=== PATIENT | female | born 1965 | race Caucasian/White ===

== ENCOUNTER 2020-08-24 10:36 | Outpatient (REF) | payer MEDICAID, SELFPAY | END 2020-08-24 10:37 | disposition home or self-care (01) | LOC: HO.LAB 10:36 | PROVIDERS: PCP Nurse Practitioner Family; Visit Provider Internal Medicine | DX: Z20.828 Contact with and (suspected) exposure to other viral communicable diseases (principal) | CPT/HCPCS: C9803; U0003 ==

== ENCOUNTER → 2020-08-29 14:07 | Outpatient (BNVA) | payer MEDICAID, SELFPAY | PROVIDERS: Visit Provider Internal Medicine | DX: R07.2 Precordial pain (principal); E11.8 Type 2 diabetes mellitus with unspecified complications; E78.5 Hyperlipidemia, unspecified; U07.1 COVID-19 | CPT/HCPCS: 93005; 99202 ==

== ENCOUNTER → 2020-09-22 08:30 | Outpatient (REF) | payer MEDICAID, SELFPAY ==
--- NOTE | 2020-09-22 | NM_ITS ---
EXERCISE MYOCARDIAL PERFUSION STUDY INDICATION: Shortness of breath, diabetes, hyperlipidemia, assess for coronary disease and ischemia TECHNIQUE: The patient was brought in for an exercise perfusion study on 09/22/2020. Patient performed exercise as per Pastor protocol and was injected 25 mCi of sestamibi once target heart rate was achieved. Images were obtained using the SPECT gamma camera interlaced with the gating device. Images were obtained in supine position. Resting perfusion study was performed on 09/25/2020. Patient was administered 25 mCi of sestamibi intravenously at rest. Images were then obtained in supine position. Total DLP 91mGy-cm. Images were processed with the software and compared side to side in short axis, horizontal long axis and vertical long axis views. FINDINGS: Raw images were reviewed. The stress perfusion study showed mildly diminished tracer uptake in the distal part of the inferolateral wall. With CT attenuation correction this improves significantly, suggestive of soft tissue attenuation. The gated study shows normal LV systolic function with calculated LVEF of 56%. LV cavity is normal in size. The gated study shows normal wall thickening and contraction of segments. Resting study shows mildly diminished tracer uptake in the mid anterior wall that is probably artifactual as this area improves normally perfused in the stress acquisition. Gating at rest reveals normal wall motion with ejection fraction at 70%. The findings are consistent with no definite reversible or fixed perfusion defects. NM/NM mateo perf SPECT rest & str IMPRESSION: 1. Myocardial perfusion imaging study shows likely normal myocardial perfusion. No definitive evidence of any ischemia or infarction. 2. Gated LVEF is normal. 3. Transient ischemic dilatation not present. EKG component of the test reported separately.
--- NOTE | 2020-09-22 08:37 | CA_ITS ---
Transthoracic Echocardiogram Patient (Last, First, Middle): Tisha Brown, Gender: Female Date of : 1965 Age: 55 Procedure Date: 09/22/2020 Procedure Type: Transthoracic Echocardiogram Location: OP Height: 162.56 cm Weight: 72.58 kg BSA: 1.78 m2 Heart Rate: bpm BP: 132 / 80 mmHg Certified Medical Records Coder: Referring MD: Kye Miller MD Symptoms: R07.2 - Precordial pain Study Quality: Good ECG Rhythm: Sinus Conclusions: - Normal left ventricular size and systolic function. - Normal right ventricular cavity size and systolic function. - No significant valvular or pericardial pathology. Findings Left Ventricle Normal left ventricular size and systolic function. There is mildly increased left ventricular wall thickness. The visually estimated ejection fraction is between 55-60%. There is no evidence of regional wall motion abnormalities. Diastolic function is normal for age. Right Ventricle Normal right ventricular cavity size and systolic function. Atria Both atria are normal in size. Aortic Valve Normal aortic valve structure and function. There is no aortic valve stenosis. There is no aortic valve regurgitation. Mitral Valve Normal mitral valve structure and function. There is no mitral valve regurgitation. There is no mitral valve stenosis. Pulmonic Valve Normal pulmonic valve structure and function. There is trace pulmonic valve regurgitation. Tricuspid Valve Normal right atrial pressure. There is no evidence of pulmonary hypertension. Great Vessels All visible segments of the aorta are normal in size. The visualized portions of the pulmonary artery and branches are normal. Venous The inferior vena cava is normal in size and collapses greater than 50% with inspiration. Pericardium/Pleural There is no evidence of pericardial effusion. Prior Study Comparison No prior study available for comparison. Measurements 2D Linear Measurements IVSd: 1.04 0.6-0.9/0.6-1.0 cm LVIDd: 3.30 3.9-5.3/4.2-5.9 cm LVIDd Index: 1.85 2.4-3.2/2.2-3.1 cm/m2 LVIDs: 2.38 2.0-3.6 cm LVPWd: 1.07 0.7-1.1 cm Ao Root: 2.90 2.1-3.5 cm LA Diam: 2.90 2.7-3.8/3.0-4.0 cm LAIDs Index: 1.63 1.5-2.3 cm/m2 LV Mass: 127.30 67-162/88-224 g LV Mass Index: 71.52 43-95/49-115 g/m2 LVOT Diam: 2.20 3.0+(-)1.3 cm 2D Systolic Function EF 4C: 59.70 >55% EF 2C: 60.00 >55% EF BiP: 60.00 >55% Mitral Valve MV Pk E: 0.62 MV PK A: 0.86 MV Decel Time: 127.00 E/A: 0.70 E'Lateral: 10.50 E'Medial: 7.35 E/E' Med: 8.40 E/E' Lat: 5.90 PHT: 37.00 MVA PHT: 5.95 Decel Fountain: 4.90 Aortic Valve AoV Pk Srini: 1.02 AoV Mn Srini: 0.69 AoV VTI: 0.29 AoV Pk Grad: 4.00 Aov Mn Grad: 2.00 CHIRAG Cont.VTI: 2.94 LVOT LVOT Pk Srini: 0.92 LVOT Mn Srini: 0.57 LVOT VTI: 0.22 LVOT Pk Grad: 3.00 LVOT Mn Grad: 2.00 LVOT Diam: 2.20 LVOT Area: 3.80 Diastolic Function MV Pk E: 0.62 MV Pk A: 0.86 E/A: 0.70 E'Medial: 7.35 E/E' Med: 8.40 E' Laterial: 10.50 E/E' Lat: 5.90 Tricuspid Valve TR Pk Srini: 2.15 TR Pk Grad: 18.00 RA Press: 3.00 RVSP: 21.00 Great Vessels Aorta Ao Root-2D: 2.90 2.0-3.7 cm Ao Asc: 2.80 2.1-3.4 cm Pulmonary Valve PV Pk Srini: 0.87 Peak PV Grad: 3.00 Updated in Other Vendor System with Status of Final Byron Kaplan MD electronically signed on 09/24/2020 9:51:24 PM with status of Final
--- NOTE | 2020-09-22 08:37 | CA_ITS ---
Acquisition Time: 2020-09-22 09:52:47 Total Exercise Time: 00:06:22 Test Indications: Dyspnea Medications: ASA FLONASE LEVOTHYROXINE LORATIDINE METFORMIN Protocol: SARAI Max HR: 136 BPM 88% of Pred: 153 BPM Max BP: 132/088 mmHG Max Work Load: 6.4 METS Test changed to exercise MIBI as pt had coffe this morning. Pt walked for 6 min 22 sec. METS 6.40, TAPHR up to 88 %. Pt tolerated well, denies any anginal sx. EKG without arrhythmias, Mild [address] depressions seen inferiorly and laterally at peak exercise that resolve in recovery. Nuclear images to follow. Normotensive response to exercise. Test reviewed with Dr. Miller Referred By: Kye Miller Overread By: Alessandra Osborne
== END ==
LOC: HO.CARD 08:30
PROVIDERS: Visit Provider Internal Medicine
DX: R07.2 Precordial pain (principal)
CPT/HCPCS: 78452; 93017; 93306; A9500

== ENCOUNTER 2020-09-25 10:41 | Outpatient (REF) | payer MEDICAID, SELFPAY ==
[2020-09-25 14:29] LABS: Cholesterol 215 mg/dL; HDL Cholesterol 54 mg/dL; LDL Cholesterol Calculated 103 mg/dl; Triglycerides 291 mg/dL
[2020-09-26 07:57] LABS: LDL Cholesterol Direct 134 mg/dL (<100)
== END 2020-09-25 10:42 | disposition home or self-care (01) ==
LOC: HO.10HDL 10:41
PROVIDERS: Visit Provider Internal Medicine Endocrinology, Diabetes & Metabolism
DX: E78.5 Hyperlipidemia, unspecified (principal)
CPT/HCPCS: 36415; 80061; 83721

== ENCOUNTER 2020-09-25 11:06 | Outpatient (REF) | payer MEDICAID, SELFPAY ==
--- NOTE | 2020-09-25 11:15 | MM_ITS ---
EXAMINATION: MM SCREENING DIGITAL BREAST TOMOSYNTHESIS, BILATERAL CLINICAL INFORMATION: Screening. Asymptomatic. The lifetime risk of breast cancer based on the Tyrer-Cuzick Model is 7%. COMPARISON: Mammography: 09/22/2019, 09/17/2018, 09/12/2017 TECHNIQUE: Digital breast tomosynthesis is performed in both the craniocaudal and mediolateral oblique views along with computer-aided detection (CAD). Synthesized 2D images are generated from the tomosynthesis. FINDINGS: The breasts are heterogeneously dense, which may obscure small masses (ACR BI-RADS breast composition Category c). Right breast is similar to prior studies with no interval mass or architectural abnormality or developing density. Neither breast shows abnormal calcifications. The bilateral axilla and skin contours are unremarkable. There is nodular asymmetry medial left breast on CC view 4 cm from nipple without correlate on MLO projection. Patient will be recalled to further characterize. MM/MM tomosynthesis screening BI IMPRESSION: Left: Nodular asymmetric density medial breast on CC view. Right: No mammographic evidence of malignancy. ASSESSMENT: BI-RADS 0: Incomplete - Need Additional Imaging Evaluation RECOMMENDATION: 1. Additional views of the left breast (3-D spot CC, 3-D rolled CC x2). 2. Targeted ultrasound if warranted after review of the additional views. 3. Radiology department staff will contact the patient for additional imaging. This patient's information was entered into a reminder system with a target due date for their next mammogram.
== END 2020-09-25 11:07 | disposition home or self-care (01) ==
LOC: HO.MAMMO 11:06
PROVIDERS: Visit Provider Nurse Practitioner Family
DX: Z12.31 Encounter for screening mammogram for malignant neoplasm of breast (principal)
CPT/HCPCS: 77063; 77067

== ENCOUNTER → 2020-10-02 09:50 | Outpatient (BNVA) | payer MEDICAID, SELFPAY | PROVIDERS: Visit Provider Internal Medicine Endocrinology, Diabetes & Metabolism | DX: E78.5 Hyperlipidemia, unspecified (principal) | CPT/HCPCS: 99212 ==

== ENCOUNTER → 2020-10-11 11:26 | Outpatient (BNVA) | payer MEDICAID, SELFPAY | PROVIDERS: Visit Provider Internal Medicine | DX: R07.2 Precordial pain (principal); U07.1 COVID-19; E11.8 Type 2 diabetes mellitus with unspecified complications | CPT/HCPCS: 99212 ==

== ENCOUNTER 2020-10-31 08:35 | Outpatient (REF) | payer MEDICAID, SELFPAY ==
--- NOTE | ~2020-10-31 | MM_ITS ---
EXAMINATION: MM DIAGNOSTIC DIGITAL BREAST TOMOSYNTHESIS, LEFT US DIAGNOSTIC ULTRASOUND BREAST, LEFT CLINICAL INFORMATION: Recall from screening for asymmetric density medial left breast on CC view. COMPARISON: Mammography: 09/25/2020, 09/22/2019, 09/17/2018, 09/12/2017 TECHNIQUE: Digital breast tomosynthesis is performed. 2D images are generated from the tomosynthesis. The following views are obtained: 3-D spot CC, 3-D rolled CC x2. Ultrasound left breast is targeted to the medial breast. Grayscale imaging and color Doppler are performed without and with harmonics. FINDINGS: The breasts are heterogeneously dense, which may obscure small masses (ACR BI-RADS breast composition Category c). The additional rolled views show no persistent asymmetric density. There is questionable faint small nodular asymmetry on the spot view. There is no architectural abnormality. Ultrasound demonstrates a small incidental cyst with fine avascular internal septation 9:00 position 3 cm from nipple measuring 0.7 x 0.3 cm, corresponding to the finding on mammography. No associated color flow. There is no solid mass or architectural abnormality. Results are discussed with the patient at time of visit, using an site interpreter. MM/MM tomosynthesis added views L IMPRESSION: Small cyst anterior medial left breast with fine avascular internal septation corresponding to finding on recent mammography. ASSESSMENT: BI-RADS 2: Benign RECOMMENDATION: Routine annual mammography screening. This patient's information was entered into a reminder system with a target due date for their next mammogram.
== END 2020-10-31 08:36 | disposition home or self-care (01) ==
LOC: HO.MAMMO 08:35
PROVIDERS: PCP Nurse Practitioner Family; Visit Provider Nurse Practitioner Family
DX: R92.2 Inconclusive mammogram (principal)
CPT/HCPCS: 76642; 77061; 77065

== ENCOUNTER 2021-03-22 14:33 | Outpatient (REF) | payer MEDICAID, SELFPAY ==
[2021-03-22 15:47] LABS: Cholesterol 209 mg/dL; HDL Cholesterol 48 mg/dL; LDL Cholesterol Calculated 98 mg/dl; Triglycerides 316 mg/dL
[2021-03-23 07:56] LABS: LDL Cholesterol Direct 121 mg/dL (<100)
== END 2021-03-22 14:34 | disposition home or self-care (01) ==
LOC: HO.LAB 14:33
PROVIDERS: PCP Internal Medicine; Visit Provider Internal Medicine Endocrinology, Diabetes & Metabolism
DX: E78.5 Hyperlipidemia, unspecified (principal)
CPT/HCPCS: 36415; 80061; 83721

== ENCOUNTER → 2021-04-02 08:59 | Outpatient (BNVA) | payer MEDICAID, SELFPAY | PROVIDERS: PCP Nurse Practitioner Family; Visit Provider Internal Medicine Endocrinology, Diabetes & Metabolism | DX: E78.5 Hyperlipidemia, unspecified (principal) | CPT/HCPCS: 99212 ==

== ENCOUNTER 2021-10-16 12:19 | Outpatient (REF) | payer MEDICAID, SELFPAY ==
--- NOTE | ~2021-10-16 | MM_ITS ---
EXAMINATION: MM SCREENING DIGITAL BREAST TOMOSYNTHESIS, BILATERAL CLINICAL INFORMATION: Screening. Asymptomatic. The lifetime risk of breast cancer based on the Tyrer-Cuzick Model is 5%. COMPARISON: Mammography: 10/31/2020, 09/25/2020, 09/22/2019, 09/17/2018, 09/12/2017, 09/11/2016; targeted left breast ultrasound 10/31/2020 TECHNIQUE: Digital breast tomosynthesis is performed in both the craniocaudal and mediolateral oblique views along with computer-aided detection (CAD). Synthesized 2D images are generated from the tomosynthesis. Additional left MLO view is provided. FINDINGS: The breasts are heterogeneously dense, which may obscure small masses (ACR BI-RADS breast composition Category c). There are no significant masses, abnormal calcifications, or other abnormalities. Parenchymal pattern is similar to prior studies. There is no developing density or architectural abnormality. The axilla and skin contours are unremarkable. No significant changes. MM/MM tomosynthesis screening BI IMPRESSION: No mammographic evidence of malignancy. ASSESSMENT: BI-RADS 1: Negative RECOMMENDATION: Routine annual mammography screening. This patient's information was entered into a reminder system with a target due date for their next mammogram.
== END 2021-10-16 12:20 | disposition home or self-care (01) ==
LOC: HO.MAMMO 12:19
PROVIDERS: Visit Provider Internal Medicine
DX: Z12.31 Encounter for screening mammogram for malignant neoplasm of breast (principal)
CPT/HCPCS: 77063; 77067

== ENCOUNTER 2022-10-18 08:42 | Outpatient (REF) | payer MEDICAID, SELFPAY ==
--- NOTE | ~2022-10-18 | MM_ITS ---
EXAMINATION: MM SCREENING DIGITAL BREAST TOMOSYNTHESIS, BILATERAL CLINICAL INFORMATION: Screening. Asymptomatic. The lifetime risk of breast cancer based on the Tyrer-Cuzick Model is 10.7%. COMPARISON: Mammography: October 16, 2021 and studies dating back to September 11, 2016 TECHNIQUE: Digital breast tomosynthesis is performed in both the craniocaudal and mediolateral oblique views along with computer-aided detection (CAD). Synthesized 2D images are generated from the tomosynthesis. FINDINGS: The breasts are heterogeneously dense, which may obscure small masses (ACR BI-RADS breast composition Category c). There are no significant masses, abnormal calcifications, or other abnormalities. MM/MM tomosynthesis screening BI IMPRESSION: No significant changes from prior exam. ASSESSMENT: BI-RADS 1: Negative RECOMMENDATION: Routine annual mammography screening. This patient's information was entered into a reminder system with a target due date for their next mammogram.
== END 2022-10-18 08:43 | disposition home or self-care (01) ==
LOC: HO.MAMMO 08:42
PROVIDERS: PCP Internal Medicine; Visit Provider Internal Medicine
DX: Z12.31 Encounter for screening mammogram for malignant neoplasm of breast (principal)
CPT/HCPCS: 77063; 77067

== ENCOUNTER 2023-06-20 10:18 | Outpatient (REF) | payer MEDICAID, SELFPAY | END 2023-06-20 10:19 | disposition home or self-care (01) | LOC: HO.HHCL 10:18 | PROVIDERS: Visit Provider Internal Medicine | DX: E03.9 Hypothyroidism, unspecified (principal) | CPT/HCPCS: 36415; 84439; 84443 ==

== ENCOUNTER 2023-10-24 08:29 | Outpatient (REF) | payer MEDICAID, SELFPAY | END 2023-10-24 08:30 | disposition home or self-care (01) | LOC: HO.MAMMO 08:29 | PROVIDERS: Visit Provider Internal Medicine | DX: Z12.31 Encounter for screening mammogram for malignant neoplasm of breast (principal) | CPT/HCPCS: 77063; 77067 ==

== ENCOUNTER → 2023-10-24 09:30 | Outpatient (BNV) | payer MEDICAID, SELFPAY | PROVIDERS: Visit Provider Radiology Diagnostic Radiology | DX: Z12.31 Encounter for screening mammogram for malignant neoplasm of breast (principal) | CPT/HCPCS: 77063; 77067 ==

== ENCOUNTER 2023-12-18 09:40 | Outpatient (REF) | payer MEDICAID, SELFPAY ==
[2023-12-18 11:53] LABS: Anion Gap 12 (12-20); Blood Urea Nitrogen 11 mg/dL (9-16); Calcium 10.1 mg/dL (8.4-10.2); Carbon Dioxide 29 mmol/L (22-29); Chloride 101 mmol/L (96-108); Cholesterol 285 mg/dL (<200); Estimated Glomerular Filt Rate > 60; Glucose Random 161 mg/dL (60-115); HDL Cholesterol 51 mg/dL (>40); LDL Cholesterol Calculated 175 mg/dL (<100); Potassium 4.2 mmol/L (3.3-5.1); Sodium 138 mmol/L (135-145); Triglycerides 298 mg/dL (<150)
[2023-12-18 12:10] LABS: TSH reflex Free T4 2.96 uIU/mL (0.32-4.0)
== END 2023-12-18 09:41 | disposition home or self-care (01) ==
LOC: HO.HHCL 09:40
PROVIDERS: Visit Provider Internal Medicine
DX: E03.9 Hypothyroidism, unspecified (principal); E11.65 Type 2 diabetes mellitus with hyperglycemia
CPT/HCPCS: 36415; 80048; 80061; 84443

== ENCOUNTER → 2024-02-02 09:49 | Day surgery (SDC) | payer MEDICAID, SELFPAY ==
[2024-01-28 07:23] VITALS: BMI 25.2
--- NOTE | 2024-01-30 09:49 | HO.ANESPROP2 ---
HPI - Anesthesia Eval Consult details Narrative: 58yo F for Left Cataract Extraction IOL Insertion, 03/01/24 PCP cleared No prev cataract on record Anesthesia Pre-Procedure Meds Is the patient on any of the following meds?: GLP1/DPP4 PMFSH Active Problems Active Problems: All Active Problems Lab test positive for detection of COVID-19 virus (Acute) Precordial chest pain (Acute) Other and unspecified hyperlipidemia (Acute) Type 2 diabetes mellitus with unspecified complications (Acute) Past Medical History Medical History (Updated 01/28/24 @ 07:06 by Jena López RN) Dental calculus Polycystic ovaries Candidiasis, intertrigo Vitamin D deficiency Onychomycosis Diabetes Non-alcoholic fatty liver disease HTN (hypertension) Bilateral hearing loss Thyroid disease Localized gingival recession Periodontal disease Other and unspecified hyperlipidemia Type 2 diabetes mellitus with unspecified complications Family History Family History Family/Other Diabetes Surgical History Surgical History Hx of thyroidectomy Hx of section Social History Social History (Updated 04/02/21 @ 09:17 by CAROL ANN Garza) Patient Tobacco Use Status: Former Tobacco user Are you DNR?: No Advance Directives: No Advance Directives Information Provided: Yes Advance Directives on File: No Patient : No : No Meds Allergies Allergy/AdvReac Type Severity Reaction Status Date / Time No Known Allergies Allergy Verified 04/02/21 09:17 Home Medications ?Medication ?Instructions ?Recorded ?Confirmed ?Last Taken ?Type aspirin 81 mg tablet,delayed 81 mg PO DAILY 08/29/20 01/28/24 Unknown History release (Adult Low Dose Aspirin) cholecalciferol (vitamin D3) 50 50 mcg PO DAILY 08/29/20 01/28/24 Unknown History mcg (2,000 unit) capsule metformin 1,000 mg tablet 1,000 mg PO BID 08/29/20 01/28/24 Unknown History atorvastatin 40 mg tablet 40 mg PO QAM 01/28/24 01/28/24 Unknown History ciclopirox 8 % topical solution 1 appl topical BEDTIME 01/28/24 01/28/24 Unknown History colestipol 1 gram tablet 2 g PO BID 01/28/24 01/28/24 Unknown History dulaglutide 0.75 mg/0.5 mL 0.75 mg subcut QWEEK 01/28/24 01/28/24 Unknown History subcutaneous pen injector (Trulicity) glipizide 2.5 mg tablet, extended 2.5 mg PO BID 01/28/24 01/28/24 Unknown History release 24 hr hydrochlorothiazide 12.5 mg tablet 12.5 mg PO QAM 01/28/24 01/28/24 Unknown History levothyroxine 50 mcg tablet 50 mcg PO QAM 01/28/24 01/28/24 Unknown History lidocaine 5 % topical patch 1 patch topical BID 01/28/24 01/28/24 Unknown History Exam Height,Weight and Vital Signs: Height 5 ft 3 in Weight 64.41 kg Assessment and Plan Assessment Anesthesia Assessment: Chart Reviewed
[2024-02-27 12:22] VITALS: BMI 24.8
== END ==
PROVIDERS: PCP Internal Medicine; Visit Provider Ophthalmology
DX: H25.12 Age-related nuclear cataract, left eye (principal); Z53.29 Procedure and treatment not carried out because of patient's decision for other reasons
CPT/HCPCS: J3301

== ENCOUNTER 2024-02-16 06:38 | Day surgery (SDC) | payer MEDICAID, SELFPAY ==
[2024-01-28 07:29] VITALS: BMI 25.2
--- NOTE | 2024-02-12 13:27 | P.CONAN_ITS ---
Documented by User: Ayleen Kincaid NP 02/12/24 13:27 HPI - Anesthesia Eval Consult details Narrative: 58yo F for Right Cataract Extraction IOL Insertion No previous cataract on record PMFSH Active Problems Active Problems: All Active Problems Lab test positive for detection of COVID-19 virus (Acute) Precordial chest pain (Acute) Other and unspecified hyperlipidemia (Acute) Type 2 diabetes mellitus with unspecified complications (Acute) Past Medical History Medical History Dental calculus Polycystic ovaries Candidiasis, intertrigo Vitamin D deficiency Onychomycosis Diabetes Non-alcoholic fatty liver disease HTN (hypertension) Bilateral hearing loss Thyroid disease Localized gingival recession Periodontal disease Other and unspecified hyperlipidemia Type 2 diabetes mellitus with unspecified complications Family History Family History Family/Other Diabetes Surgical History Surgical History Hx of thyroidectomy Hx of section Social History Social History Patient Tobacco Use Status: Former Tobacco user Are you DNR?: No Advance Directives: No Advance Directives Information Provided: Yes Advance Directives on File: No Patient : No : No Meds Allergies Allergy/AdvReac Type Severity Reaction Status Date / Time No Known Allergies Allergy Verified 04/02/21 09:17 Home Medications ?Medication ?Instructions ?Recorded ?Confirmed ?Last Taken ?Type aspirin 81 mg tablet,delayed 81 mg PO DAILY 08/29/20 01/28/24 Unknown History release (Adult Low Dose Aspirin) cholecalciferol (vitamin D3) 50 50 mcg PO DAILY 08/29/20 01/28/24 Unknown History mcg (2,000 unit) capsule metformin 1,000 mg tablet 1,000 mg PO BID 08/29/20 01/28/24 Unknown History atorvastatin 40 mg tablet 40 mg PO QAM 01/28/24 01/28/24 Unknown History ciclopirox 8 % topical solution 1 appl topical BEDTIME 01/28/24 01/28/24 Unknown History colestipol 1 gram tablet 2 g PO BID 01/28/24 01/28/24 Unknown History dulaglutide 0.75 mg/0.5 mL 0.75 mg subcut QWEEK 01/28/24 01/28/24 Unknown History subcutaneous pen injector (Trulicity) glipizide 2.5 mg tablet, extended 2.5 mg PO BID 01/28/24 01/28/24 Unknown H istory release 24 hr hydrochlorothiazide 12.5 mg tablet 12.5 mg PO QAM 01/28/24 01/28/24 Unknown History levothyroxine 50 mcg tablet 50 mcg PO QAM 01/28/24 01/28/24 Unknown History lidocaine 5 % topical patch 1 patch topical BID 01/28/24 01/28/24 Unknown History Exam Height,Weight and Vital Signs: Height 5 ft 3 in Weight 64.41 kg Assessment and Plan Assessment Anesthesia Assessment: Chart Reviewed Documented by User: Angie Yoder MD 02/16/24 08:42 [facility] Past Medical History Medical History Dental calculus Polycystic ovaries Candidiasis, intertrigo Vitamin D deficiency Onychomycosis Diabetes Non-alcoholic fatty liver disease HTN (hypertension) Bilateral hearing loss Thyroid disease Localized gingival recession Periodontal disease Other and unspecified hyperlipidemia Type 2 diabetes mellitus with unspecified complications Family History Family History Family/Other Diabetes Surgical History Surgical History Hx of thyroidectomy Hx of section History of Problems with Anesthesia: No Social History Social History Patient Tobacco Use Status: Former Tobacco user Are you DNR?: No Advance Directives: No Advance Directives Information Provided: Yes Advance Directives on File: No Patient : No : No Meds Allergies Allergy/AdvReac Type Severity Reaction Status Date / Time No Known Allergies Allergy Verified 04/02/21 09:17 Home Medications ?Medication ?Instructions ?Recorded ?Confirmed ?Last Taken ?Type aspirin 81 mg tablet,delayed 81 mg PO DAILY 08/29/20 01/28/24 Unknown History release (Adult Low Dose Aspirin) cholecalciferol (vitamin D3) 50 50 mcg PO DAILY 08/29/20 01/28/24 Unknown History mcg (2,000 unit) capsule metformin 1,000 mg tablet 1,000 mg PO BID 08/29/20 01/28/24 Unknown History atorvastatin 40 mg tablet 40 mg PO QAM 01/28/24 01/28/24 Unknown History ciclopirox 8 % topical solution 1 appl topical BEDTIME 01/28/24 01/28/24 Unknown History colestipol 1 gram tablet 2 g PO BID 01/28/24 01/28/24 Unknown History dulaglutide 0.75 mg/0.5 mL 0.75 mg subcut QWEEK 01/28/24 01/28/24 Unknown History subcutaneous pen injector (Trulicity) glipizide 2.5 mg tablet, extended 2.5 mg PO BID 01/28/24 01/28/24 Unknown History release 24 hr hydrochlorothiazide 12.5 mg tablet 12.5 mg PO QAM 01/28/24 01/28/24 Unknown History levothyroxine 50 mcg tablet 50 mcg PO QAM 01/28/24 01/28/24 Unknown History lidocaine 5 % topical patch 1 patch topical BID 01/28/24 01/28/24 Unknown History Exam Airway Mallampati Class: II TM Dist: >3cm Neck ROM: Full Loose/Missing/Broken Teeth: No Heart: RRR Lungs: CTA Assessment and Plan Assessment Anesthesia Assessment: Anesthesia Plan Discussed Final Anesthetic Review History of Problems with Anesthesia: No NPO: Yes ASA Class: III Final Preanesthetic Review: Meds/Allgs Chart Reviewed, Consent Obtained/Reviewed and Anes Risks/Benef Reviewed Patient Risk: Intermediate Procedure Risk: Low Anesthetic Plan Anesthetic Plan: MAC: Disposition: Standard PACU
[2024-02-16 08:07] VITALS: BP 164/85; PULSE 80; RESP 20; TEMP 36.1; O2SAT 98
[2024-02-16 08:20] LABS: Glucose, Whole Blood 186 mg/dL (60-115)
[2024-02-16] MEDS: Lactated Ringers 500 ML 50 ML IV (08:22)
[2024-02-16] MEDS: Tetracaine HCl/PF 0.5% Oph Sol 4 ML DROPS 1 DROP EYE-RIGHT (08:22)
[2024-02-16] MEDS: Tropicamide 1 % Ophth Sol 3 ML BTL 1 DROP EYE-RIGHT ×3 (08:23→08:26)
[2024-02-16] MEDS: Cyclopentolate 1 % Ophth Sol 2 ML DRPBTL 1 DROP EYE-RIGHT ×3 (08:23→08:26)
[2024-02-16] MEDS: Phenylephrine HCL 2.5% Oph SoL 2 ML BOTTLE 1 DROP EYE-RIGHT ×3 (08:24→08:26)
[2024-02-16] MEDS: Ketorolac Tromethamine 0.5% Op 10 ML DROPS 1 DROP EYE-RIGHT ×3 (08:24→08:26)
--- NOTE | 2024-02-16 08:59 | MHC.SHP ---
Pre-Procedural Eval Section A - 24 Hr Update-Section A only Date of Service: 02/16/24 The patient is an INPATIENT: No Changes since office visit: No Cold of Flu in the past 2 weeks, No New Medical Problems, No Changes in Medication and No Patient answered all questions The patient has been examined within 24 hours of the surgical procedure. The History & Physical has been completed within 30 days and I have reviewed it.: Yes Section B - Complete if H&P > 30 days Chief Complaint: Age-related nuclear cataract, right eye Allergies: Allergies Allergy/AdvReac Type Severity Reaction Status Date / Time No Known Allergies Allergy Verified 04/02/21 09:17 Plan Diagnosis/Plan: Unchanged I have reviewed the history and physical and performed a pertinent physical examination on my patient. No changes have occurred unless specified. Time Spent With Patient Time: Total time managing care of this patient today ____ minutes.
--- NOTE | 2024-02-16 09:00 | HO.PNOPHT ---
Ophthalmology Procedure Procedure Date of Service: 02/16/24 Ophthalmology Viscoelastic: Healon Duet Dual Pack Pro Ophthalmology Lenses: SENSAR AR40 (E 4.5) Procedure Notes: PREOPERATIVE DIAGNOSIS: Decreased visual acuity right eye secondary to cataract POSTOPERATIVE DIAGNOSIS: Same PROCEDURE: Right cataract extraction with intraoccular lens insertion SURGEON: Virgilio Eubanks M.D. ANESTHESIA: Topical/MAC ESTIMATED BLOOD LOSS: None COMPLICATIONS: None After obtaining informed consent, the patient was brought to the operating room suite and placed in the supine position. After adequate sedation per anesthesia, topical drops of Tetracaine were given to the right eye. The eye was then prepped and draped in the usual sterile fashion. The operating room microscope was then positioned over the operative eye and a lid speculum placed. A paracentesis was created. Viscoelastic was then instilled into the anterior chamber. A three plane incision was then created temporally, utilizing a 2.85 mm keratome. Capsulotomy forceps were then utilized to create a circular tear capsulotomy. Hydrodissection and hydrodelineation were carried out until adequate mobilization of the nucleus occurred. Phacoemulsification was then utilized to remove the dense central nucleus followed by removal of the cortical material utilizing the automated aspiration irrigation unit. Viscoelastic was instilled into the posterior capsular bag followed by placement of a multifocal posterior chamber intraocular lens without difficulty. The residual Viscoelastic was then removed utilizing the automated IA machine. The wound was checked and found to be watertight. The patient tolerated the procedure well and the lid speculum was removed. Intracameral injection of Vigamox 0.1 mL followed by a subtenon injection of Kenalog-40 0.2 mL were administered. The patient will be seen in the a.m.
[2024-02-16 09:35] VITALS: BP 119/72; PULSE 76; RESP 18; TEMP 36.1; O2SAT 96
== END 2024-02-16 09:47 | disposition home or self-care (01) ==
PROVIDERS: PCP Internal Medicine; Visit Provider Ophthalmology
PROC: (CPT 66985; principal; 2024-02-16 09:20)
DX: H25.11 Age-related nuclear cataract, right eye (principal); E11.9 Type 2 diabetes mellitus without complications
CPT/HCPCS: 66984; 82947; J2250; J3010; J3301; V2632

== ENCOUNTER 2024-03-01 05:55 | Day surgery (SDC) | payer MEDICAID, SELFPAY ==
[2024-03-01 06:59] VITALS: BMI 22.6
--- NOTE | 2024-03-01 07:11 | HO.ANESPROP2 ---
[facility] Active Problems Active Problems: All Active Problems Lab test positive for detection of COVID-19 virus (Acute) Precordial chest pain (Acute) Other and unspecified hyperlipidemia (Acute) Type 2 diabetes mellitus with unspecified complications (Acute) Past Medical History Medical History Gingival bleeding Dental calculus Polycystic ovaries Candidiasis, intertrigo Vitamin D deficiency Onychomycosis Diabetes Non-alcoholic fatty liver disease HTN (hypertension) Bilateral hearing loss Thyroid disease Localized gingival recession Periodontal disease Other and unspecified hyperlipidemia Type 2 diabetes mellitus with unspecified complications Family History Family History Family/Other Diabetes Surgical History Surgical History Hx of thyroidectomy Hx of section History of Problems with Anesthesia: No Social History Social History Patient Tobacco Use Status: Former Tobacco user Advance Directives: No Advance Directives Information Provided: Yes Meds Allergies Allergy/AdvReac Type Severity Reaction Status Date / Time No Known Allergies Allergy Verified 04/02/21 09:17 Active Medications: Current Medications Povidone Iodine (Povidone Iodine 5 % Ophth Soln 30 Ml Bottle) 1 appl EYE-LEFT PREOP PRN PRN Reason: Pre-Op Surgical Implant Prophy Home Medications ?Medication ?Instructions ?Recorded ?Confirmed ?Last Taken ?Type aspirin 81 mg tablet,delayed 81 mg PO DAILY 08/29/20 03/01/24 Unknown History release (Adult Low Dose Aspirin) cholecalciferol (vitamin D3) 50 50 mcg PO DAILY 08/29/20 03/01/24 Unknown History mcg (2,000 unit) capsule metformin 1,000 mg tablet 1,000 mg PO BID 08/29/20 03/01/24 Unknown History atorvastatin 40 mg tablet 40 mg PO QAM 01/28/24 03/01/24 Unknown History ciclopirox 8 % topical solution 1 appl topical BEDTIME 01/28/24 03/01/24 Unknown History colestipol 1 gram tablet 2 g PO BID 01/28/24 03/01/24 Unknown History dulaglutide 0.75 mg/0.5 mL 0.75 mg subcut QWEEK 01/28/24 03/01/2401/29/24 History subcutaneous pen injector (Trulicity) glipizide 2.5 mg tablet, extended 2.5 mg PO QPM 01/28/24 03/01/24 Unknown History release 24 hr hydrochlorothiazide 12.5 mg tablet 12.5 mg PO QAM 01/28/24 03/01/24 Unknown History levothyroxine 50 mcg tablet 50 mcg PO QAM 01/28/24 03/01/24 03/01/24 04:00 History lidocaine 5 % topical patch 1 patch topical BID 01/28/24 03/01/24 Unknown History clotrimazole 1 % topical cream 1 appl topical BID 02/27/24 03/01/24 Unknown History glipizide 2.5 mg tablet 5 mg PO DAILY 02/27/24 03/01/24 Unknown History Exam Airway Mallampati Class: II TM Dist: >3cm Neck ROM: Full Loose/Missing/Broken Teeth: No Heart: RRR Lungs: CTA Assessment and Plan Assessment Anesthesia Assessment: Anesthesia Plan Discussed and Chart Reviewed Final Anesthetic Review History of Problems with Anesthesia: No NPO: Yes ASA Class: II Final Preanesthetic Review: Meds/Allgs Chart Reviewed, Consent Obtained/Reviewed and Anes Risks/Benef Reviewed Patient Risk: Low Procedure Risk: Low Anesthetic Plan Anesthetic Plan: MAC: Disposition: Standard PACU
[2024-03-01 07:15] LABS: Glucose, Whole Blood 111 mg/dL (60-115)
[2024-03-01] MEDS: Tetracaine HCl/PF 0.5% Oph Sol 4 ML DROPS 1 DROP EYE-LEFT (07:29)
[2024-03-01] MEDS: Cyclopentolate 1 % Ophth Sol 2 ML DRPBTL 1 DROP EYE-LEFT ×3 (07:30→07:49)
[2024-03-01] MEDS: Tropicamide 1 % Ophth Sol 3 ML BTL 1 DROP EYE-LEFT ×3 (07:32→07:51)
[2024-03-01] MEDS: Ketorolac Tromethamine 0.5% Op 10 ML DROPS 1 DROP EYE-LEFT ×3 (07:36→07:53)
[2024-03-01] MEDS: Phenylephrine HCL 2.5% Oph SoL 2 ML BOTTLE 1 DROP EYE-LEFT ×3 (07:39→07:55)
[2024-03-01 08:07] VITALS: BP 146/81; PULSE 79; RESP 16; TEMP 36.5; O2SAT 100
--- NOTE | 2024-03-01 08:28 | MHC.SHP ---
Pre-Procedural Eval Section A - 24 Hr Update-Section A only Date of Service: 03/01/24 The patient is an INPATIENT: No Changes since office visit: No Cold of Flu in the past 2 weeks, No New Medical Problems, No Changes in Medication and No Patient answered all questions The patient has been examined within 24 hours of the surgical procedure. The History & Physical has been completed within 30 days and I have reviewed it.: Yes Section B - Complete if H&P > 30 days Chief Complaint: Age-related nuclear cataract, left eye Allergies: Allergies Allergy/AdvReac Type Severity Reaction Status Date / Time No Known Allergies Allergy Verified 04/02/21 09:17 Plan Diagnosis/Plan: Unchanged I have reviewed the history and physical and performed a pertinent physical examination on my patient. No changes have occurred unless specified. Time Spent With Patient Time: Total time managing care of this patient today ____ minutes.
--- NOTE | 2024-03-01 08:29 | HO.PNOPHT ---
Ophthalmology Procedure Procedure Date of Service: 03/01/24 Ophthalmology Viscoelastic: Healon Duet Dual Pack Pro Ophthalmology Lenses: IOL Acrysof MP - [id number] (7) Procedure Notes: PREOPERATIVE DIAGNOSIS: Decreased visual acuity left eye secondary to cataract POSTOPERATIVE DIAGNOSIS: Same PROCEDURE: Left cataract extraction with intraocular lens insertion SURGEON: Virgilio Eubakns M.D. ANESTHESIA: Topical/MAC ESTIMATED BLOOD LOSS: None COMPLICATIONS: None After obtaining informed consent, the patient was brought to the operation room suite and placed in the supine position. After adequate sedation per anesthesia, topical drops of Tetracaine were given to the left eye. The eye was then prepped and draped in the usual sterile fashion. The operating room microscope was then positioned over the operative eye and a lid speculum placed. A paracentesis was created. Viscoelastic was then instilled into the anterior chamber. A three plane incision was then created temporally, utilizing a 2.85 mm keratome. Capsulotomy forceps were then utilized to create a circular tear capsulotomy. Hydrodissection and hydrodelineation were carried out until adequate mobilization of the nucleus occurred. Phacoemulsification was then utilized to remove the dense central nucleus followed by removal of the cortical material utilizing the automated aspiration irrigation unit. Viscoat elastic was instilled into the posterior capsular bag followed by placement of a posterior chamber intraocular lens without difficulty. The residual Viscoat elastic was then removed utilizing the automated IA machine. The wound was check and found to be watertight. The patient tolerated the procedure well and the lid speculum was removed. Intracameral injection of Vigamox 0.1 mL followed by a subtenon injection of Kenalog-40 0.2 mL were administered. The patient will be seen in the a.m.
[2024-03-01 09:03] VITALS: BP 137/73; PULSE 81; RESP 16; TEMP 36.8; O2SAT 99
== END 2024-03-01 09:08 | disposition home or self-care (01) ==
PROVIDERS: PCP Internal Medicine; Visit Provider Ophthalmology
PROC: (CPT 66985; principal; 2024-03-01 08:00)
DX: H25.12 Age-related nuclear cataract, left eye (principal); H52.4 Presbyopia; H18.413 Arcus senilis, bilateral; H43.393 Other vitreous opacities, bilateral; H35.363 Drusen (degenerative) of macula, bilateral; H91.93 Unspecified hearing loss, bilateral; E07.9 Disorder of thyroid, unspecified; I10 Essential (primary) hypertension; E78.00 Pure hypercholesterolemia, unspecified; E11.65 Type 2 diabetes mellitus with hyperglycemia; Z79.84 Long term (current) use of oral hypoglycemic drugs; Z79.85 Long-term (current) use of injectable non-insulin antidiabetic drugs; Z79.82 Long term (current) use of aspirin; Z79.899 Other long term (current) drug therapy
CPT/HCPCS: 66984; 82947; J2250; J3010; J3301; V2630

== ENCOUNTER 2024-07-29 11:38 | Outpatient (REF) | payer MEDICAID, SELFPAY ==
[2024-07-29 15:59] LABS: Alanine Aminotransferase 46 U/L (0-31); Albumin Level 4.3 g/dL (3.5-5.0); Alkaline Phosphatase 55 U/L (39-117); Anion Gap 12 (12-20); Aspartate Amino Transferase 41 U/L (5-31); Bilirubin Total 0.6 mg/dL (0.0-1.0); Blood Urea Nitrogen 12 mg/dL (9-16); Calcium 9.5 mg/dL (8.4-10.2); Carbon Dioxide 29 mmol/L (22-29); Chloride 101 mmol/L (96-108); Cholesterol 143 mg/dL (<200); Estimated Glomerular Filt Rate > 60; Glucose Random 103 mg/dL (60-115); HDL Cholesterol 49 mg/dL (>40); LDL Cholesterol Calculated 60 mg/dL (<100); Potassium 3.6 mmol/L (3.3-5.1); Sodium 138 mmol/L (135-145); Total Protein 7.2 g/dL (6.5-8.0); Triglycerides 172 mg/dL (<150)
[2024-07-29 16:08] LABS: TSH reflex Free T4 1.43 uIU/mL (0.32-4.0)
== END 2024-07-29 11:39 | disposition home or self-care (01) ==
LOC: HO.HHCL 11:38
PROVIDERS: Visit Provider Internal Medicine
DX: E11.65 Type 2 diabetes mellitus with hyperglycemia (principal)
CPT/HCPCS: 36415; 80053; 80061; 84443

== ENCOUNTER 2024-10-29 08:07 | Outpatient (REF) | payer MEDICAID, SELFPAY ==
--- OUTSIDE RECORDS SUMMARY | 2024-10-29 08:10 | XMS_ITS | Clinical Summary ---
Author Organization [employer] Address [address] [place] [address] Care Team Providers Care Linux Programmer Name Role Phone Nuzhat Chamberlain MD Primary Care Provide r Allergies No known active allergies Medications liver oil-zinc oxide (Desitin) 40 % ointmentIndications:Ca ndidiasis, intertrigo Apply topically if needed for irritation. 56 g 2022 Active Alcohol Swabs (Alcohol Prep) 70 % pads USE 2 OR 3 TIMES DAILY DIRECTED 2022 Active cholecalciferol (Vitamin D-3) 25 MCG (1000 UT) capsuleIndications:Typ e 2 diabetes mellitus with hyperglycemia, without long-term current use of insulin ([facility]) Take 1 capsule (25 mcg) by mouth in the morning. 90 capsule 2022 Active glucose blood (FREESTYLE LITE) test strip TEST BLOOD SUGAR TWICE DAILY 50 strip 11 2022 Active Blood Glucose Monitoring Suppl (FreeStyle Lite) w/Device kitIndications:Type 2 diabetes mellitus with hyperglycemia, without long-term current use of insulin ([facility]) 1 kit 2 times daily. 1 kit 2023 Active lidocaine (Lidoderm) 5 % patchIndications:Chron ic pain of left knee APPLY 1 PATCH TOPICALLY TO SKIN, LEAVE ON FOR 12 HOURS AND OFF FOR 12 HOURS DIRECTED 30 patch 1 2023 Active Alcohol Swabs (Alcohol Prep) 70 % pads USE DIRECTED 2 OR 3 TIMES DAILY 100 each 11 2023 Active Propylene Glycol (Systane Complete) 0.6 % solutionIndications:Ca taract of left eye, unspecified cataract type Administer 2 drops into affected eye(s) 3 times daily. 10 mL 2 2023 Active omega-3 (Fish Oil) 1000 MG capsuleIndications:Kathe day hypercholesterolemia Take 1 capsule (1,000 mg) by mouth 2 times daily. 180 capsule 1 2023 Active FREESTYLE LITE test stripIndications:Type 2 diabetes mellitus with hyperglycemia, without long-term current use of insulin (CMS/HCC) Use to test blood sugar 2 times daily 100 each 12 04/27 Active D3 Super Strength 50 MCG (2000 UT) capsule TAKE 1 CAPSULE BY MOUTH EVERY DAY 90 capsule 3 2023 Active levothyroxine (Synthroid, Levoxyl) 50 MCG tabletIndications:Acqu ired hypothyroidism Take 1 tablet (50 mcg) by mouth before breakfast. 90 tablet 3 2023 Active atorvastatin (Lipitor) 40 MG tabletIndications:Type 2 diabetes mellitus with hyperglycemia, without long-term current use of insulin (CMS/HCC) TAKE 1 TABLET BY MOUTH DAILY IN THE MORNING 90 tablet 3 2023 Active glipiZIDE XL (Glucotrol XL) 2.5 MG 24 hr tabletIndications:Type 2 diabetes mellitus with hyperglycemia, without long-term current use of insulin (CMS/HCC) TAKE 2 TABLETS BY MOUTH EVERY MORNING WITH BREAKFAST AND 1 TABLET BY MOUTH EVERY EVENING WITH DINNER. DO NOT BREAK, CRUSH, DISSOLVE OR CHEW 270 tablet 3 2023 Active Aspirin Adult Low Strength 81 MG EC tabletIndications:Type 2 diabetes mellitus with hyperglycemia, without long-term current use of insulin (CMS/HCC) Take 1 tablet (81 mg) by mouth in the morning. 90 tablet 1 2023 Active metFORMIN (Glucophage) 1000 MG tabletIndications:Type 2 diabetes mellitus with hyperglycemia, without long-term current use of insulin (CMS/HCC) TAKE 1 TABLET BY MOUTH TWICE DAILY IN THE MORNING AND IN THE EVENING WITH MEALS 180 tablet 1 2023 Active colestipol (Colestid) 1 g tabletIndications:Hype rcholesterolemia Take 2 tabs orally twice a day 120 tablet 11 2023 Active hydroCHLOROthiazide (HYDRODiuril) 25 MG tabletIndications:Prim mekhi hypertension Take 1 tablet (25 mg) by mouth Once per day. 30 tablet 11 07/29 Active clotrimazole (Lotrimin) 1 % creamIndications:Willow diasis, intertrigo APPLY TOPICALLY TO THE AFFECTED AREA(S) TWICE DAILY DIRECTED 30 g 2 2023 Active ciclopirox (Penlac) 8 % solutionIndications:On ychomycosis APPLY TOPICALLY TO THE AFFECTED AREA(S) EVERY DAY AT BEDTIME DIRECTED 6.6 mL 3 2024 Active Trulicity 3 MG/0.5ML solution auto-injectorIndicatio ns:Type 2 diabetes mellitus with hyperglycemia, without long-term current use of insulin (CMS/[facility]) INJECT ONE PEN (= 3MG) SUBCUTANEOUSLY ONCE A WEEK DIRECTED 2 mL 2 2024 Active TRUEplus Lancets 33G miscIndications:Type 2 diabetes mellitus with hyperglycemia, without long-term current use of insulin (CMS/HCC) USE TO TEST BLOOD SUGAR TWICE DAILY 100 each 1 2024 Active TRUEplus Lancets 33G miscIndications:Type 2 diabetes mellitus with hyperglycemia, without long-term current use of insulin (CMS/HCC) USE TO TEST BLOOD SUGAR TWICE DAILY 100 each 5 10/19 Discontinued Dulaglutide (Trulicity) 3 MG/0.5ML solution auto-injectorIndicatio ns:Type 2 diabetes mellitus with hyperglycemia, without long-term current use of insulin (CMS/HCC) Inject 0.5 mL (3 mg) under the skin 1 (one) time per week. 3 mL 2 10/07 Discontinued Active Problems Problem Noted Date Diagnosed Date Tooth sensitivity 06/09/2024 Primary osteoarthritis of left knee 06/01/2024 Acute bacterial conjunctivitis of right eye 04/15 Preop examination 01/26/2024 Assessment & Plan (01/26/2024 4:46 PM EDT): RCRI score is 0 which is 3.9% Surgery should proceed as schedule I advise NPO after midnight the day of the procedure Hold the afternoon/dinner glipizide dose the day before the procedure I advise to take only her blood pressure medication the day of the surgery with a small sip of water Chronic pain of left knee 09/18/2023 Encounter for screening mamm ogram for malignant neoplasm of breast 06/20/2023 Dental calculus 03/31/2023 Candidiasis, intertrigo 11/29/2022 Assessment & Plan (11/29/2022 9:56 AM EDT): On sacral area, most likely related to uncontrolled dm use clotrimazole cream + Desitin Elevated blood sugar 11/29/2022 Weight loss 11/29/2022 Assessment & Plan (11/29/2022 9:53 AM EDT): it could be related to decreased PO intake as a result of metformin therapy baseline malignancy workup up to date, negative and patient with no other significant findings. Order labs and FU with PCP Bilateral hearing loss 11/28/2022 Hypertensive disorder 11/28/2022 Assessment & Plan (10/28/2024 10:12 AM EST): I advised low-sodium diet I advised to take her medications every day without missing any dose I asked patient to log her blood pressure and bring for next appointment with nurse in 2 weeks for blood pressure check, if blood pressure is not at goal my plan is to add losartan 25 mg daily Assessment & Plan (07/29/2024 12:01 PM EST): Maintenance: BMP: ordered Lipid Panel: ordered ASCVD Risk: 12.3% -I went up on her hydrochlorothiazide to 25mg daily - Aerobic exercise to reduce BP. Initial goal of 30 min walk 3-5x/week. Increase as tolerated. - low-sodium diet (goal: <2g/day) and heart healthy diet such as DASH to reduce BP and prevent ASCVD. - Home BP monitoring 1-2 x day with goal of <140/90. - Seek immediate medical attention for chest pain, palpitations, SOB, syncope, or sudden changes in mental status. - Do not change or discontinue current prescriptions without first consulting health care provider Assessment & Plan (04/27/2024 10:32 AM EDT): Today blood pressure is high, I advise to monitor blood pressure at home if its still high to reports back to me I advise low Na diet Assessment & Plan (01/26/2024 4:37 PM EDT): I advise not to miss any dose of her medications I advise low Na diet I advise weight reduction Assessment & Plan (09/18/2023 10:11 AM EST): Maintenance: BMP: up to date Lipid Panel: up to date ASCVD Risk: on atorvastatin 40mg daily - Aerobic exercise to reduce BP. Initial goal of 30 min walk 3-5x/week. Increase as tolerated. - low-sodium diet (goal: <2g/day) and heart healthy diet such as DASH to reduce BP and prevent ASCVD. - Home BP monitoring 1-2 x day with goal of <140/90. - Seek immediate medical attention for chest pain, palpitations, SOB, syncope, or sudden changes in mental status. - Do not change or discontinue current prescriptions without first consulting health care provider Assessment & Plan (06/20/2023 10:00 AM EDT): - Aerobic exercise to reduce BP. Initial goal of 30 min walk 3-5x/week. Increase as tolerated. - low-sodium diet (goal: <2g/day) and heart healthy diet such as DASH to reduce BP and prevent ASCVD. - Home BP monitoring 1-2 x day with goal of <140/90. - Seek immediate medical attention for chest pain, palpitations, SOB, syncope, or sudden changes in mental status. - Do not change or discontinue current prescriptions without first consulting health care provider Assessment & Plan (03/21/2023 9:54 AM EDT): - Aerobic exercise to reduce BP. Initial goal of 30 min walk 3-5x/week. Increase as tolerated. - low-sodium diet (goal: <2g/day) and heart healthy diet such as DASH to reduce BP and prevent ASCVD. - Home BP monitoring 1-2 x day with goal of <140/90. - Seek immediate medical attention for chest pain, palpitations, SOB, syncope, or sudden changes in mental status. - Do not change or discontinue current prescriptions without first consulting health care provider Assessment & Plan (01/08/2023 9:40 AM EDT): Maintenance: BMP: up to date Lipid Panel: up to date ASCVD Risk: Calculated recently started on atorvastatin 40mg daily - Aerobic exercise to reduce BP. Initial goal of 30 min walk 3-5x/week. Increase as tolerated. - low-sodium diet (goal: <2g/day) and heart healthy diet such as DASH to reduce BP and prevent ASCVD. - Home BP monitoring 1-2 x day with goal of <140/90. - Seek immediate medical attention for chest pain, palpitations, SOB, syncope, or sudden changes in mental status. - Do not change or discontinue current prescriptions without first consulting health care provider Assessment & Plan (11/29/2022 9:36 AM EDT): Controlled. Compliant w/meds Continue hydrochlorothiazide same dose Counseled re low salt diet/increase moderate physical activity. Check home BP BIW and prn CP/ENGLISH/MURRAY Non smoking patient. FU 6m OM (onychomycosis) 11/28/2022 Assessment & Plan (11/29/2022 9:55 AM EDT): On toe nails Restart Penlac lotion and FU with PCP Periodontal disease 09/25/2022 Localized gingival recession 09/25/2022 Gingival bleeding 09/25/2022 Primary hypercholesterolemia 10/12/2015 Assessment & Plan (01/08/2023 9:44 AM EDT): C/w diet modification and atorvastatin Lipid panel will be check later Acquired hypothyroidism 10/12/2015 Assessment & Plan (01/08/2023 9:41 AM EDT): TSH done a month ago was low levohyroxine dose reduce to 75mcg, this may be the reason she lost some weight now weigh raghu stable I will repeat TFTs on next appointment RTC 3 months Assessment & Plan (11/29/2022 9:56 AM EDT): Check TSH No change in levothryoxine Non-alcoholic fatty liver disease 10/12/2015 Type 2 diabetes mellitus wit h hyperglycemia, without long-term current use of insulin 10/12/2015 Assessment & Plan (10/28/2024 10:12 AM EST): Diabetes is: not controlled but improved - Lab Results Component Value Date HGBA1C 7.8 (A) 10/28/2024 HGBA1C 8.2 (A) 07/29/2024 HGBA1C 8.2 (A) 04/27/2024 - Lab Results Component Value Date MICROALBUR 0.7 02/19/2022 CREATININE 0.92 07/29/2024 -Changes: None - Diabetic eye exam: Up-to-date has upcoming appointment - Diabetic foot exam: Declines for now podiatry referral, she would like to be referral once the weather is better - Continue lifestyle modifications - Continue current medications - Follow up: 3 months Assessment & Plan (07/29/2024 12:02 PM EST): Diabetes is: not controlled - Lab Results Component Value Date HGBA1C 8.2 (A) 07/29/2024 HGBA1C 8.2 (A) 04/27/2024 HGBA1C 7.9 (A) 12/18/2023 - Lab Results Component Value Date MICROALBUR 0.7 02/19/2022 CREATININE 0.89 12/18/2023 -Changes: I went up on trulicity to 3mg weekly - Diabetic eye exam:pending - Diabetic foot exam:pending - Continue lifestyle modifications - Follow up: 3 months Assessment & Plan (04/27/2024 10:32 AM EDT): Diabetes is: not controlled - Lab Results Component Value Date HGBA1C 8.2 (A) 04/27/2024 HGBA1C 7.9 (A) 12/18/2023 HGBA1C 7.4 (A) 09/18/2023 - Lab Results Component Value Date MICROALBUR 0.7 02/19/2022 CREATININE 0.89 12/18/2023 -Changes: I went up on her trulicity to 1.5mg weekly - Diabetic eye exam:up to date - Diabetic foot exam:pending - Continue lifestyle modifications - Follow up: 3 months Assessment & Plan (01/26/2024 4:36 PM EDT): C/w current medication regimen F/u in 3 months Assessment & Plan (12/18/2023 9:44 AM EDT): Diabetes is: not controlled - Lab Results Component Value Date HGBA1C 7.9 (A) 12/18/2023 HGBA1C 7.4 (A) 09/18/2023 HGBA1C 7.4 (A) 06/20/2023 - Lab Results Component Value Date MICROALBUR 0.7 02/19/2022 CREATININE 0.97 12/02/2022 -Changes: none - Diabetic eye exam:up to date - Diabetic foot exam:pending - Continue lifestyle modifications - Continue current medications - Follow up: 3 months Assessment & Plan (09/18/2023 10:13 AM EST): - Lab Results Component Value Date HGBA1C 7.4 (A) 09/18/2023 HGBA1C 7.4 (A) 06/20/2023 HGBA1C 8.6 (A) 03/21/2023 - Lab Results Component Value Date MICROALBUR 0.7 02/19/2022 CREATININE 0.97 12/02/2022 - - Diabetic eye exam: up to date appointment on november 2023 - Diabetic foot exam: declines referral to podiatry - Continue lifestyle modifications, c/w same medication regimen Assessment & Plan (06/20/2023 10:00 AM EDT): - Lab Results Component Value Date HGBA1C 7.4 (A) 06/20/2023 HGBA1C 8.6 (A) 03/21/2023 HGBA1C 7.9 (A) 11/29/2022 - Lab Results Component Value Date MICROALBUR 0.7 02/19/2022 CREATININE 0.97 12/02/2022 - - Diabetic eye exam: referral today - Diabetic foot exam:up to date - Continue lifestyle modifications - Continue current medications Assessment & Plan (03/21/2023 9:56 AM EDT): - Lab Results Component Value Date HGBA1C 7.9 (A) 11/29/2022 HGBA1C 9.7 (H) 02/19/2022 - Lab Results Component Value Date MICROALBUR 0.7 02/19/2022 CREATININE 0.97 12/02/2022 - - Diabetic eye exam: up to date - Diabetic foot exam: up to date - Continue lifestyle modifications -today I added rica to her regimen Assessment & Plan (01/08/2023 9:43 AM EDT): Patient reports glucose is between 140-160s at home, she had 2 occassions where glucose went up but it was because of diet indiscretion - Lab Results Component Value Date HGBA1C 7.9 (A) 11/29/2022 HGBA1C 9.7 (H) 02/19/2022 - Lab Results Component Value Date MICROALBUR 0.7 02/19/2022 CREATININE 0.97 12/02/2022 - - Diabetic eye exam: up to date - Diabetic foot exam: up to date - Extensive discussion about lifestyle modifications done today - Continue current medications Assessment & Plan (11/29/2022 9:55 AM EDT): Uncontrolled. increase glipizide to 5mg in the morning, continue 2.5 in the evening, continue metfomrin same dose and follow up in 3-4 weeks. Counseled re more frequent low calorie/carb meals. Check fgstk daily Encouraged physical activity as tolerated. Order labs Vitamin D deficiency 10/12/2015 Assessment & Plan (11/29/2022 9:53 AM EDT): order labs continue vitamin D daily Polycystic ovaries 10/12/2015 Encounters Date Type Department Care Team Description 10/28/2024 10:00 AM EST Office Visit [facility] [address] [place] [phone] Nuzhat Chamberlain MD Primary hypertension (Primary Dx); Type 2 diabetes mellitus with hyperglycemia, without long-term current use of insulin ([facility]) 10/28/2024 Travel 10/20/2024 Refill [facility] [address] [place] [address] Nuzhat Chamberlain MD Candidiasis, intertrigo 10/19/2024 Refill [facility] [address] [place] [phone] Nuzhat Chamberlain MD Type 2 diabetes mellitus with hyperglycemia, without long-term current use of insulin ([facility]) 10/15/2024 Patient Outreach [facility] [address] [place] [phone] Nuzhat Chamberlain MD Pre-visit Planning ((Unable to reach for PVP screening and or LVM)) 10/12/2024 Refill [facility] [address] [place] [phone] Winnie Kaur, COMPENSATION AND BENEFITS ANALYST Hordeolum externum of right lower eyelid 10/07/2024 Refill [facility] [address] [place] [phone] Nuzhat Chamberlain MD Type 2 diabetes mellitus with hyperglycemia, without long-term current use of insulin (CMS/HCC) 09/24/2024 Refill [facility] [address] [place] [phone] Nuzhat Chamberlain MD Onychomycosis 09/16/2024 1:40 PM EST Office Visit [facility] [address] [place] [phone] Winnie Kaur, COMPENSATION AND BENEFITS ANALYST Hordeolum externum of right lower eyelid (Primary Dx); Elevated blood pressure reading in office with diagnosis of hypertension 08/31/[address] [phone] Nuzhat Chamberlain MD Candidiasis, intertrigo 07/29/2024 11:15 AM EST Office Visit [address] [phone] Nuzhat Chamberlain MD Primary hypertension (Primary Dx); Type 2 diabetes mellitus with hyperglycemia, without long-term current use of insulin (CMS/[facility]); Hypercholesterolemia from Last 3 Months Immunizations Name Administration Dates Next Due Hep A, Adult 02/24/2015,04/13/2008 Hep B, adult 06/05/2017,03/27/2015,02/24/2015 Influenza injectable quadriv alent IIV4 with preservative 07/12/2019,07/28/2018,06/05/2017,08/14,10/12/2015 Influenza injectable quadriv alent preservative free 08/16/2020 Influenza, IIV3, injectable 05/31/2014, 1 Influenza, Split (incl. cyndi fied surface antigen) 06/16/2012 Pneumococcal Polysaccharide PPSV23 01/01/2006 TD (adult), 2 Lf tetanus tox oid, preservative free, adsorbed 04/24/2020 Tdap 03/27/2010 Social History Tobacco Use Types Packs/Day Years Used Date Smoking Tobacco: Never Passive Smoke Exposure: Never Smokeless Tobacco: Never Alcohol Use Standard Drinks/Week Comments Never 0 (1 standard drink = 0.6 oz pur e alcohol) Depression Answer Date Recorded Patient Health Questionnaire-9 Score 0 04/27/2024 Patient Health Questionnaire-9 Score 0 04/27/2024 Last PHQ-9: Questionnaire Data Not on file 0 04/27/2024 Housing Stability Answer Date Recorded What is your housing situation today? I have treasuremahin nathan 07/09/[address] you li ve. Do you have problems with any of the following? None of the above 07/09/2023 Food Insecurity Answer Date Recorded Within the past 12 months, y ou worried that your food would run out before you got money to buy more: Never True 07/09/2023 Within the past 12 months,th e food you bought just didn't last and you didn't have enough money to get more: Never True Transportation Answer Date Recorded In the past 12 months, has l ack of transportation kept you from medical appts, meetings, work or from getting things needed for daily living? No 07/09/2023 Utilities Answer Date Recorded In the past 12 months, has t he electric, gas, oil or water company threatened to shut off services in your home? No 07/09/2023 Depression Answer Date Recorded Patient Health Questionnaire-2 Score 0 04/27/2024 Comments Unknown Sex and Gender Information Value Date Recorded Sex Assigned at Female 07/15/2022 10:14 AM EDT Legal Sex Female 10:14 AM EDT Gender Identity Female 07/15/2022 10:14 AM EDT Sexual Orientation Straight 07/15/2022 10 :14 AM EDT Last Filed Vital Signs Vital Sign Reading Time Taken Comments Blood Pressure 154/83 10/28/2024 9:40 AM EST no meds td Pulse 90 10/28/2024 9:40 AM EST Temperature 35.9 ??C (96.7 ??F) 10/28/2024 9 :40 AM EST Respiratory Rate 16 10/28/2024 9:40 AM EST Oxygen Saturation 98% 09/16/2024 1:2 5 PM EST Inhaled Oxygen Concentration - - Weight 61.5 kg (135 lb 9.6 oz) 10/28/19 9:40 AM EST Height 161.3 cm (5' 3.5 ) 10/28/2024 9: 40 AM EST Body Mass Index 23.64 10/28/2024 9:40 AM EST Plan of Treatment Upcoming Encounters Date Type Department Care Team (Late st Contact Info) Description 11/11/2024 1:00 PM EST Clinical Support [facility] [address] [place] [phone] 12/08/2024 8:00 AM EDT Office Visit [facility] [address] [place] [phone] Lily Howe [address] [place] [address] 01/24/2025 9:45 AM EDT Office Visit [facility] [address] [place] [phone] Nuzhat Chamberlain MD [address] [place] [address] Health Maintenance Due Date Last Done Comments CT Colonography 1963 FIT DNA/Cologuard 1963 FIT 1963 FOBT 1963 HIV Screening 1963 Sigmoidoscopy 1963 Diabetes: Foot Exam 1973 Eye Exam 1973 Alcohol/Substance Use Screening 1975 Hepatitis C Screening 1981 Pneumococcal Vaccine: 50+ Years (2 of 2 - PCV) 01/01/2007 01/01/2006 Zoster Vaccines (1 of 2) 2013 RSV Patients and Patients Aged 60 years or older (1 - Risk 60-74 years 1-dose series) 2023 SDOH Screening 11/30/2023 11/29/2022 Diabetes: Urine Protein Screening 12/03/2023 12/02/2022, 02/19/2022, 03/20/2020 COVID-19 Vaccine ( season) 2024 Influenza Vaccine (#1) 2024 , 07/12/2019, 07/28/2018, Additional history exists Colonoscopy 07/25/2024 Colorectal Cancer Screening 07/25/2024 Mammogram 10/24/2024 10/24/2023, 0211/2022, 10/18/2022, Additional history exists Dental Oral Exam 11/23/2024 05/25/2024, , 04/04/2023 Dental Prophylaxis 12/08/2024 06/09/2024, 0 10/09/2023, 03/31/2023, Additional history exists Diabetes: Hemoglobin A1C 01/25/2025 025, 07/29/2024, 04/27/2024, Additional history exists Dental X-Ray: Full Mouth 03/27/2025 03/26/2022 Depression Screening 04/27/2025 04/27/2024, 04/27/20 Dental X-Ray: Bitewings 05/26/2025 05/25/2024, 03/31 Lipid Panel 07/29/2025 07/29/2024, 04/0 12/2023, 12/02/2022, Additional history exists Tobacco Screening 10/28/2025 10/28/2024 Cervical Cancer Screening 10/11/2026 HPV/Cotest 10/11/2026 10/11/2021, 10/08/2016 Pap Smear 10/11/2026 10/11/2021, 10/11/2021 DTaP/Tdap/Td Vaccines (3 - Td or Tdap) 04/24/2030 04/24/2020, 03/27/2010 Hepatitis A Vaccines Completed 02/24/2015, 04/13/20 08 Hepatitis B Vaccines Completed 06/05/2017, 03/27/2015, 02/24/2015 HIB Vaccines Aged Out No longer eligi ble based on patient's age to complete this topic HPV Vaccines Aged Out No longer eligi ble based on patient's age to complete this topic IPV Vaccines Aged Out No longer eligi ble based on patient's age to complete this topic Meningococcal Vaccine Aged Out No valentín dimitri eligible based on patient's age to complete this topic RSV under 20 months Aged Out No longe r eligible based on patient's age to complete this topic Rotavirus Vaccines Aged Out No longer eligible based on patient's age to complete this topic Procedures Procedure Name Priority Date/Time Associated Diagnosis Comments POCT GLYCATED HEMOGLOBIN, TOTAL Routine 10/28/2024 9:41 AM EST Type 2 diabetes mellitus with hyperglycemia, without long-term current use of insulin (CMS/HCC) POCT GLUCOSE Routine 10/28/2024 9:41 AM EST Type 2 diabetes mellitus with hyperglycemia, without long-term current use of insulin (CMS/HCC) TSH W/REFLEX TO FT4 Routine 07/29/2024 1 1:40 AM EST Type 2 diabetes mellitus with hyperglycemia, without long-term current use of insulin (CMS/HCC) COMPREHENSIVE METABOLIC PANEL Routine 07/29/2024 11:40 AM EST Type 2 diabetes mellitus with hyperglycemia, without long-term current use of insulin (CMS/HCC) LIPID PANEL, STANDARD Routine 07/29/2024 11:40 AM EST Type 2 diabetes mellitus with hyperglycemia, without long-term current use of insulin (CMS/HCC) POCT GLYCATED HEMOGLOBIN, TOTAL Routine 07/29/2024 10:41 AM EST Type 2 diabetes mellitus with hyperglycemia, without long-term current use of insulin (CMS/HCC) POCT GLUCOSE Routine 07/29/2024 10:40 AM EST Type 2 diabetes mellitus with hyperglycemia, without long-term current use of insulin (CMS/HCC) PROPHYLAXIS - ADULT Routine 06/09/2024 9 :00 AM EDT Periodontal disease Gingival bleeding Localized gingival recession Dental calculus Tooth sensitivity BITEWINGS - 4 RADIOGRAPHIC IMAGES Routine 05/25/2024 8:00 AM EDT Encounter for dental examination PERIODIC ORAL EVALUATION - ESTABLISHED PATIENT Routine 05/25/2024 8:00 AM EDT Encounter for dental examination BI MAMMOGRAM SCREENING TOMOSYNTHESIS BILATERAL Routine 10/24/2023 8:50 AM EST ALBUMIN, RANDOM URINE W/O CREATININE Routine 12/02/2022 9:29 AM EDT Type 2 diabetes mellitus without complication, without long-term current use of insulin ([facility] [facility]) THINPREP IMAGING PAP AND HPV MRNA E6/E7 WITH REFLEX TO HPV 16,18/45 Routine 10/11/2021 10:50 AM EST PAP SMEAR Routine 10/11/2021 12:00 AM EST from Last 3 Months or Most Recently Relevant to Health Maintenance Results * (ABNORMAL) POCT HGB A1C (10/28/2024 9:41 AM EST) Only the most recent of2 resultswithin the time period is included. Hemoglobin A1C 7.8(A) 4.0 - 6.0 % QC Media Lot # [id number] Lot# Expiration Date Blood 10/28/2024 9:41 AM EST Nuzhat Rojas MD POINT OF CARE TEST EN TER/EDIT ORDERABLES Final Result * POCT Glucose (10/28/2024 9:41 AM EST) Only the most recent of2 resultswithin the time period is included. Glucose Blood, POC 169 60 - 200 mg/dL QC Media Lot # [id number] Lot# Expiration Date 025 Blood Capillary blood specimen / Unknown 10/28/2024 9:41 AM EST Nuzhat Rojas MD POINT OF CARE TEST EN TER/EDIT ORDERABLES Final Result * TSH W/Reflex to FT4 (07/29/2024 11:40 AM EST) TSH reflex Free T4 1.43 0.32 - 4.0 uIU/mL [facility] Blood Venous blood specimen / Unknown 07/29/2024 11:40 AM EST 07/29/2024 1:26 PM EST Nuzhat Rojas MD LAB BLOOD ORDERABLES Final Result Performing Organization Address City/[facility] Co de Phone Number [facility] [address] [place] [address] [phone] * (ABNORMAL) Lipid Panel, Standard (07/29/2024 11:40 AM EST) Triglycerides 172(H) <150 mg/dL [facility] Comment:Desirable Triglyceri de: less than 150 mg/dLBorderline High Triglyceride 150-199 mg/dLHigh Triglyceride: 200-499 mg/dLVery High Triglyceride: greater than or equal to 5OO mg/dL Cholesterol 143 <200 mg/dL [facility] Comment:Desirable Cholestero l: less than 200 mg/dLBorderline High Cholesterol: 200-239 mg/dLHigh Cholesterol: greater than 239 mg/dL LDL Cholesterol Calculated 60 <100 mg/dL [facility] Comment:Desirable LDL: less than 100 mg/dLNear Optimal/Above Optimal LDL: 110- 129 mg/dLBorderline High LDL: 130-159 mg/dLHigh LDL: 160-189 mg/dLVery High LDL: greater than or equal to 190 mg/dL HDL Cholesterol 49 >40 mg/dL [facility] Comment:Desirable HDL: great er than 40 mg/dL Note: This HDL assay may give artificially low results in patients with liver disease. Blood Venous blood specimen / Unknown 07/29/2024 11:40 AM EST 07/29/2024 1:26 PM EST us Nuzhat Rojas MD LAB BLOOD ORDERABLES Final Result [facility] [address] [place] [address] [phone] * (ABNORMAL) Comprehensive Metabolic Panel (07/29/2024 11:40 AM EST) Sodium 138 135 - 145 mmol/L [facility] Potassium 3.6 3.3 - 5.1 mmol/L [facility] Chloride 101 96 - 108 mmol/L [facility] Carbon Dioxide 29 22 - 29 mmol/L [facility] Anion Gap 12 12 - 20 [facility] Urea Nitrogen (BUN) 12 9 - 16 mg/dL [facility] Creatinine, Serum 0.92 0.5 - 1.4 mg/dL [facility] Estimated Glomerular Filt Rate >60 [facility] Comment:Chronic Kidney Disea se: Estimated GFR < 60 mL/min/1.60g7Cbbzop Kidney Disease: Estimated GFR < 15 mL/min/1.73m2 Glucose 103 60 - 115 mg/dL [facility] Calcium 9.5 8.4 - 10.2 mg/dL [facility] Bilirubin, Total 0.6 0.0 - 1.0 mg/dL [facility] Aspartate Amino Transferase 41(H) 5 - 31 U/L [facility] Alanine Aminotransferase 46(H) 0 - 31 U/L [facility] Total Protein 7.2 6.5 - 8.0 g/dL [facility] Albumin Level 4.3 3.5 - 5.0 g/dL [facility] Alkaline Phosphatase 55 39 - 117 U/L [facility] Blood Venous blood specimen / Unknown 07/29/2024 11:40 AM EST 07/29/2024 1:26 PM EST us Nuzhat Rojas MD LAB BLOOD ORDERABLES Final Result [facility] [address] [place] [address] [phone] * BI Mammogram Screening Tomosynthesis Bilateral (10/24/2023 8:50 AM EST) Anatomical Region Laterality Modality Breast Bilateral Mammography 10/24/2023 8:50 AM EST Narrative 11/04/2023 12:37 PM EST ? [facility] ? [address] ?[place] [address] ? Mammography Report ? Signed ? Patient: Kevin,Tisha ?MR#: [id number] ?? [id number] ? : 1965 ?Acct:[id number] ? Age/Sex: 58 / F ?ADM Date: 10/24/23 ? Loc: HO.MAMMO ? Attending Dr: Nuzhat Rojas MD ? Ordering Physician: Nuzhat Chamberlain MD ?Results: ?? 1Negative ? Date of Service: 10/24/23 ?Follow Up: 1 Year From Orig ?? inal Mammogram ? Procedure(s): MM tomosynthesis screening BI ?? Accession Number(s): [id number] ? cc: Nuzhat Chamberlain MD ? EXAMINATION: ?? MM SCREENING DIGITAL BREAST TOMOSYNTHESIS, BILATERAL ? CLINICAL INFORMATION: ? Screening. Asymptomatic. ? COMPARISON: ?? Mammography: This study is compared with prior exams dating back to ?? 2017. ? TECHNIQUE: ?? Digital breast tomosynthesis is performed in both the craniocaudal and ?? mediolateral oblique views along with computer-aided detection (CAD). ?? Synthesized 2D images are generated from the tomosynthesis. ? FINDINGS: ?? The breasts are heterogeneously dense, which may obscure small masses ?? (ACR BI-RADS breast composition Category c). ? There are no significant masses, abnormal calcifications, or other ?? abnormalities. ? MM/MM tomosynthesis screening BI ?? IMPRESSION: ?? No mammographic evidence of malignancy. ? ASSESSMENT: ? BI-RADS BI-RADS 1 - Negative ? RECOMMENDATION: ?? Routine annual mammography screening. ? 1 year F/U ? This examination should not preclude the clinical evaluation of a ?? suspicious palpable abnormality. ? This patient's information was entered into a reminder system with a ?? target due date for their next mammogram. ? Dictated By: ?Jen Brooks MD ? Signed By: ?<Electronically signed by Jen Brooks MD in OV> ? 11/04/23 1233 ? DD/ 0850 ? TD/TT: ? Supervisor Toy Assembly: ? Procedure Note Tasha, Image - 11/04/2023 [place] [facility] [address] [place] [address] Mammography Report Signed Patient: Erickson Brown#: [id number] : 1965Acct:[id number] Age/Sex: 58 / FADM Date: 10/24/23 Loc: HO.MAMMO Attending Dr: Nuzhat Rojas MD Ordering Physician: Nuzhat Chamberlain MDResults: 1Negative Date of Service: 10/24/23Follow Up: 1 Year From Orig inal Mammogram Procedure(s): MM tomosynthesis screening BI Accession Number(s): [id number] cc: Nuzhat Chamberlain MD EXAMINATION: MM SCREENING DIGITAL BREAST TOMOSYNTHESIS, BILATERAL CLINICAL INFORMATION: Screening. Asymptomatic. COMPARISON: Mammography: This study is compared with prior exams dating back to 2017. TECHNIQUE: Digital breast tomosynthesis is performed in both the craniocaudal and mediolateral oblique views along with computer-aided detection (CAD). Synthesized 2D images are generated from the tomosynthesis. FINDINGS: The breasts are heterogeneously dense, which may obscure small masses (ACR BI-RADS breast composition Category c). There are no significant masses, abnormal calcifications, or other abnormalities. MM/MM tomosynthesis screening BI IMPRESSION: No mammographic evidence of malignancy. ASSESSMENT: BI-RADS BI-RADS 1 - Negative RECOMMENDATION: Routine annual mammography screening. 1 year F/U This examination should not preclude the clinical evaluation of a suspicious palpable abnormality. This patient's information was entered into a reminder system with a target due date for their next mammogram. Dictated By: Jen Brooks MD Signed By: <Electronically signed by Jen Brooks MD in OV> 11/04/23 1233 DD/ 0850 TD/TT: Supervisor Toy Assembly: us Nuzhat Rojas MD IMG BI PROCEDURES Fin al Result * Albumin, Random Urine W/O Creatinine (12/02/2022 9:29 AM EDT) Albumin, Urine 0.3 See Note: mg/dL [facility] [place] [facility] Comment: Reference Range: Reference Range Not established YESSICA [employer] [place] [facility] Comment: The ADA defines abnormalities in albumin excretion as follows: Albuminuria Category ? Result (mcg/mg creatinine) Normal to Mildly increased ?<30 Moderately increased ?30-299 Severely increased ?> OR = 300 The ADA recommends that at least two of three specimens collected within a 3-6 month period be abnormal before considering a patient to be within a diagnostic category. Urine Urine specimen obtained by clean catch procedure / Unknown 12/02/2022 9:29 AM EDT 12/02/2022 9:30 AM EDT Narrative [facility] - 12/03/2022 4:14 PM EDT FASTING:UNKNOWN FASTING: UNKNOWN Tahmina Coleman MD LAB URINE ORDERABLES Fin al Result [facility] [address], [place] [address] [facility] [address] [place] [address] * THINPREP TIS PAP AND HPV mRNA E6/E7 WITH REFLEX TO HPV 16,18/45 (10/11/2021 10:50 AM EST) Clinical Information: NIL/NEG 2016 [facility] COMMENT SEE COMMENT [facility] Comment: EXPLANATORY NOTE: ? The Pap is a screening test for cervical cancer. It is ?? not a diagnostic test and is subject to false negative ?? and false positive results. It is most reliable when a ?? satisfactory sample, regularly obtained, is submitted ?? with relevant clinical findings and history, and when ?? the Pap result is evaluated along with historic and ?? current clinical information. ?? COMMENT: This Pap test has been evaluated with computer assisted technology. [facility] District Supervisor: SEE COMMENT [facility] Comment: CMG, CT(ASCP) CT screening location: [address] ??[address] HPV nRNA E6/E7 Not Detected Not Detected [facility] Comment: Methodology: Trials Manager-Mediated Amplification This assay detects E6/E7 viral messenger RNA (mRNA) from 14 high-risk HPV types (16,18,31,33,35,39,45,51,52,56,58,59,66,68). ? The analytical performance characteristics of this assay have been determined by [facility]. The modifications have not been cleared or approved by the FDA. This assay has been validated pursuant to the CLIA regulations and is used for clinical purposes. ?? For additional information, please refer to http://education.StratusLIVE.Studentbox/faq/PVU101h8 (This link if provided for information/ educational purposes only.) Interpretation/Re sult: Negative for intraepithelial lesion or malignancy. [facility] LMP: 56 [facility] Prev. BX: NONE GIVEN [facility] Prev. PAP: NONE GIVEN [facility] SOURCE: None given [facility] Statement Of Adequacy: SEE COMMENT [facility] Comment: Satisfactory for evaluation. Endocervical/transformation zone component present. 10/11/2021 10:5 0 AM EST Li Fan CNM LAB PATHOLOGY ORDERABLES Final Result [facility] [address] [place] [id number] * Pap Smear (10/11/2021 12:00 AM EST) Swab Li [facility] CYTOLOGY ORDERABLES F inal Result [facility] [address] [facility] [place], [place] [address] from Last 3 Months or Most Recently Relevant to Health Maintenance Insurance [facility] C3 DENTAL-[facility] MEDICAID STAND ADULT Care Teams Linux Programmer Relationship Specialty Start Date End Date Nuzhat Chamberlain MD [address] [place] [address] [place] [address] PCP - General Family Medicine 10/31/20
--- OUTSIDE RECORDS SUMMARY | 2024-10-29 08:10 | XMS_ITS | Encounter Summary ---
Author Organization [employer] Address [address] [facility] 7t [place] [address] Care Team Providers Care Auto Service Mechanic Name Role Phone Nuzhat Chamberlain MD Primary Care Provide r Reason for Visit * Reason Comments Med Refill Encounter Details Date Type Department Care Team ([facility] st Contact Info) Description 10/07/2024 Refill [facility] [address] [place], [place] [phone] Nuzhat Chamberlain MD [address] [place], [place] [phone] Type 2 diabetes mellitus with hyperglycemia, without long-term current use of insulin ([facility]) Social History Tobacco Use Types Packs/Day Years [...] Orientation Straight 07/15/2022 10 :14 AM EDT documented as of this encounter Plan of Treatment Upcoming Encounters Date Type Department Care Team (Late st Contact Info) Description 11/11/2024 1:00 PM EST Clinical Support [facility] [address] [place] [phone] 12/08/2024 8:00 AM EDT Office Visit [facility] ADULT DENTAL [address] [place] [phone] Luis Howearis [address] [place] [address] 01/24/2025 9:45 AM EDT Office Visit [facility] [address] [place] [phone] Nuzhat Chamberlain MD [address] [place] [phone] documented as of this encounter Visit Diagnoses Diagnosis Type 2 diabetes mellitus with hyperglycemia, without long-term current use of insulin ([facility]) documented in this encounter Additional Health Concerns Assessment Noted Time PHQ-9 Depression Total Score: 0 04/27/20 24 9:14 AM EDT documented as of this encounter Care Teams Auto Service Mechanic Relationship Specialty Start Date End Date Nuzhat Chamberlain MD [address] [place] [phone] PCP - General Family Medicine 10/31/20 documented as of this encounter
--- OUTSIDE RECORDS SUMMARY | 2024-10-29 08:10 | XMS_ITS | Encounter Summary ---
Author Organization [employer] Address [address] [place] [address] Care Team Providers Care Meals On Wheels Driver Name Role Phone Nuzhat Chamberlain MD Primary Care Provide r Encounter Details Date Type Department Care Team (Latest Contact Info) Description 10/28/2024 Travel Social History Tobacco Use Types Packs/Day Years [...] is your housing situation today? I have treasure nathan 07/09/[address] you [...] Description 11/11/2024 1:00 PM EST Clinical Support [facility] [address] [place] [address] 12/08/2024 8:00 AM EDT Office Visit [facility] ADULT DENTAL [address] [place], [place] [phone] Lily Howe [address] [place] [address] 01/24/2025 9:45 AM EDT Office Visit [facility] [address] [place] [phone] Nuzhat Chamberlain MD [address] [place] [address] documented as of this encounter Visit Diagnoses Not on filedocumented in this encounter Additional Health Concerns Assessment Noted Time PHQ-9 Depression Total Score: 0 04/27/20 24 9:14 AM EDT documented as of this encounter Care Teams Meals On Wheels Driver Relationship Specialty Start Date End Date Nuzhat Chamberlain MD [address] [place] [phone] PCP - General Family Medicine 10/31/20 documented as of this encounter
--- OUTSIDE RECORDS SUMMARY | 2024-10-29 08:10 | XMS_ITS | Encounter Summary ---
Author Organization [employer] Address [address] [place] [address] Care Team Providers Care Supervisor Sewing Room Name Role Phone Nuzhat Chamberlain MD Primary Care Provide r Reason for Visit * Reason Comments Med Refill Encounter Details Date Type Department Care Team ([facility] st Contact Info) Description 10/12/2024 Refill [facility] [address] [place], [place] [phone] Winnie Kaur NP [address] [place], [place] [phone] Hordeolum externum of right lower eyelid Social History Tobacco Use Types Packs/Day Years [...] Description 11/11/2024 1:00 PM EST Clinical Support [facility] [address] [place] [phone] 12/08/2024 8:00 AM EDT Office Visit [facility] [address] [place] [phone] Shyam, Lily [address] [place] [address] 01/24/2025 9:45 AM EDT Office Visit [facility] [address] [place] [address] Nuzhat Chamberlain MD [address] [place] [address] documented as of this encounter Visit Diagnoses Diagnosis Hordeolum externum of right lower eyelid documented in this encounter Additional Health Concerns Assessment Noted Time PHQ-9 Depression Total Score: 0 04/27/20 24 9:14 AM EDT documented as of this encounter Care Teams Supervisor Sewing Room Relationship Specialty Start Date End Date Nuzhat Chamberlain MD [address] [place] [phone] PCP - General Family Medicine 10/31/20 documented as of this encounter
--- OUTSIDE RECORDS SUMMARY | 2024-10-29 08:10 | XMS_ITS | Encounter Summary ---
Author Organization [employer] Address [address] [place] [address] Care Team Providers Care Electrodynamicist Name Role Phone Nuzhat Chamberlain MD Primary Care Provide r Reason for Visit * Reason Comments Med Refill Encounter Details Date Type Department Care Team ([facility] st Contact Info) Description 10/20/[address] [facility] [address] [place], [place] [phone] Nuzhat Chamberlain MD [address] [place], [place] [phone] Type 2 diabetes mellitus with hyperglycemia, without long-term current use of insulin ([facility]); Elevated blood sugar Social History Tobacco Use Types Packs/Day Years Used Date Smoking Tobacco: Never Passive Smoke Exposure: Never Smokeless Tobacco: Never Alcohol Use Standard Drinks/Week Comments Never 0 (1 standard drink = 0.6 oz pur e alcohol) PHQ-2 Answer Date Recorded Patient Health Questionnaire-2 Score 2 11/29/2022 Housing Stability Answer Date Recorded What is [...] Answer Date Recorded Patient Health Questionnaire-2 Score 2 11/29/2022 Comments Unknown Sex and Gender Information Value [...] 1:00 PM EST Clinical Support [facility] [address] [place] [address] 12/08/2024 8:00 AM EDT Office Visit [facility] ADULT DENTAL [address] [place] [phone] Shyam, Lily [address] [place] [address] 01/24/2025 9:45 AM EDT Office Visit [facility] [address] [place] [phone] Nuzhat Chamberlain MD [address] [place] [phone] documented as of this encounter Visit Diagnoses Diagnosis Type 2 diabetes mellitus with hyperglycemia, without long-term current use of insulin ([facility]) Elevated blood sugar Other abnormal glucose documented in this encounter Care Teams Electrodynamicist Relationship Specialty Start Date End Date Nuzhat Chamberlain MD [address] [place] [phone] PCP - General Family Medicine 10/31/20 documented as of this encounter
--- OUTSIDE RECORDS SUMMARY | 2024-10-29 08:10 | XMS_ITS | Encounter Summary ---
Author Organization [employer] Address [address] [facility] 7t [place] [address] Care Team Providers Care Grades 9 Through 12 Teacher Name Role Phone Nuzhat Chamberlain MD Primary Care Provide r Encounter Details Date Type Department Care Team (Latest Contact Info) Description 12/23/2018 Abstract [facility] Dental, Provider, DDS Social History Tobacco Use Types Packs/Day Years Used Date Smoking Tobacco: Never Assessed Comments Unknown Sex and Gender Information Value [...] Description 11/11/2024 1:00 PM EST Clinical Support [facility] [address] [place] [phone] 12/08/2024 8:00 AM EDT Office Visit [facility] ADULT [facility] [address] [place] [address] Lily Howe [address] [place] [address] 01/24/2025 9:45 AM EDT Office Visit [facility] [address] [place] [address] Nuzhat Chamberlain MD [address] [place] [address] documented as of this encounter Visit Diagnoses Not on filedocumented in this encounter Care Teams Grades 9 Through 12 Teacher Relationship Specialty Start Date End Date Nuzhat Chamberlain MD [address] [place] [phone] PCP - General Family Medicine 10/31/20 documented as of this encounter
--- OUTSIDE RECORDS SUMMARY | 2024-10-29 08:10 | XMS_ITS | Encounter Summary ---
Author Organization [employer] Address [address] [facility] 7t [place] [address] Care Team Providers Care Dermatology Teacher Name Role Phone Nuzhat Chamberlain MD Primary Care Provide r Encounter Details Date Type Department Care Team ([facility] st Contact Info) Description 10/28/2024 10:00 AM EST Office Visit [facility] MED[facility]INE [address] [place], [place] [phone] Nuzhat Chamberlain MD [address] [place], [place] [phone] Primary hypertension (Primary Dx); Type 2 diabetes mellitus with hyperglycemia, without long-term current use of insulin ([facility]) Social History Tobacco Use Types Packs/Day Years [...] your housing situation today? I have treasure nathna 07/09/[address] you li [...] AM EDT documented as of this encounter Last Filed Vital Signs Vital Sign Reading Time Taken Comments Blood Pressure 154/83 10/28/2024 9:40 AM EST no meds td Pulse 90 10/28/2024 9:40 AM EST Temperature 35.9 ??C (96.7 ??F) 10/28/2024 9 :40 AM EST Respiratory Rate 16 10/28/2024 9:40 AM EST Oxygen Saturation - - Inhaled Oxygen Concentration - - Weight 61.5 kg (135 lb 9.6 oz) 10/28/19 9:40 AM EST Height 161.3 cm (5' 3.5 ) 10/28/2024 9: 40 AM EST Body Mass Index 23.64 10/28/2024 9:40 AM EST documented in this encounter Progress Notes * Nuzhat Rojas MD - 10/28/2024 10:00 AM EST SUBJECTIVE: Tisha Brown is a 59 y.o. year old female who presents for Chronic Disease Management . Acute Concerns: Patient reports she forgot to take her blood pressure medication this morning Social History Social History Narrative Not on file Patient Active Problem List Diagnosis Periodontal disease Localized gingival recession Gingival bleeding Primary hypercholesterolemia Acquired hypothyroidism Bilateral hearing loss Hypertensive disorder Non-alcoholic fatty liver disease Type 2 diabetes mellitus with hyperglycemia, without long-term current use of insulin (CMS/HCC) OM (onychomycosis) Vitamin D deficiency Candidiasis, intertrigo Elevated blood sugar Weight loss Polycystic ovaries Dental calculus Encounter for screening mammogram for malignant neoplasm of breast Chronic pain of left knee Preop examination Acute bacterial conjunctivitis of right eye Primary osteoarthritis of left knee Tooth sensitivity No family history on file. Review of Systems Constitutional: Negative. HENT: Negative. Respiratory: Negative. Cardiovascular: Negative. OBJECTIVE: Vitals: 10/28/24 0940 BP: (!) 154/83 BP Location: Left arm Patient Position: Sitting BP Cuff Size: Adult Pulse: 90 Resp: 16 Temp: 96.7 ??F (35.9 ??C) TempSrc: Oral Weight: 135 lb 9.6 oz (61.5 kg) Height: 5' 3.5 (1.613 m) Physical Exam Constitutional: Appearance: Normal appearance. Cardiovascular: Rate and Rhythm: Normal rate and regular rhythm. Pulmonary: Effort: Pulmonary effort is normal. Breath sounds: Normal breath sounds. Abdominal: General: Abdomen is flat. Palpations: Abdomen is soft. Musculoskeletal: Right lower leg: No edema. Left lower leg: No edema. Neurological: Mental Status: She is alert. Follow Up: Follow up for 2 weeks BP check with nurse then 3 months with me . Current Outpatient Medications on File Prior to Visit Medication Sig Dispense Refill Alcohol Swabs (Alcohol Prep) 70 % pads USE 2 OR 3 TIMES DAILY DIRECTED Alcohol Swabs (Alcohol Prep) 70 % pads USE DIRECTED 2 OR 3 TIMES DAILY 100 each 11 Aspirin Adult Low Strength 81 MG EC tablet Take 1 tablet (81 mg) by mouth in the morning. 90 tablet1 atorvastatin (Lipitor) 40 MG tablet TAKE 1 TABLET BY MOUTH DAILY IN THE MORNING 90 tablet 3 Blood Glucose Monitoring Suppl (FreeStyle Lite) w/Device kit 1 kit 2 times daily. 1 kit 0 cholecalciferol (Vitamin D-3) 25 MCG (1000 UT) capsule Take 1 capsule (25 mcg) by mouth in the morning. 90 capsule 0 ciclopirox (Penlac) 8 % solution APPLY TOPICALLY TO THE AFFECTED AREA(S) EVERY DAY AT BEDTIME DIRECTED 6.6 mL 3 clotrimazole (Lotrimin) 1 % cream APPLY TOPICALLY TO THE AFFECTED AREA(S) TWICE DAILY DIRECTED 30 g 2 colestipol (Colestid) 1 g tablet Take 2 tabs orally twice a day 120 tablet 11 D3 Super Strength 50 MCG (2000 UT) capsule TAKE 1 CAPSULE BY MOUTH EVERY DAY 90 capsule 3 FREESTYLE LITE test strip Use to test blood sugar 2 times daily 100 each 12 glipiZIDE XL (Glucotrol XL) 2.5 MG 24 hr tablet TAKE 2 TABLETS BY MOUTH EVERY MORNING WITH BREAKFAST AND 1 TABLET BY MOUTH EVERY EVENING WITH DINNER. DO NOT BREAK, CRUSH, DISSOLVE OR CHEW 270 tablet 3 glucose blood (FREESTYLE LITE) test strip TEST BLOOD SUGAR TWICE DAILY 50 strip 11 hydroCHLOROthiazide (HYDRODiuril) 25 MG tablet Take 1 tablet (25 mg) by mouth Once per day. 30 tablet 11 levothyroxine (Synthroid, Levoxyl) 50 MCG tablet Take 1 tablet (50 mcg) by mouth before breakfast. 90 tablet 3 lidocaine (Lidoderm) 5 % patch APPLY 1 PATCH TOPICALLY TO SKIN, LEAVE ON FOR 12 HOURS AND OFF FOR 12 HOURS DIRECTED 30 patch 1 liver oil-zinc oxide (Desitin) 40 % ointment Apply topically if needed for irritation. 56 g 0 metFORMIN (Glucophage) 1000 MG tablet TAKE 1 TABLET BY MOUTH TWICE DAILY IN THE MORNING AND IN THE EVENING WITH MEALS 180 tablet 1 omega-3 (Fish Oil) 1000 MG capsule Take 1 capsule (1,000 mg) by mouth 2 times daily. 180 capsule 1 Propylene Glycol (Systane Complete) 0.6 % solution Administer 2 drops into affected eye(s) 3 times daily. 10 mL 2 TRUEplus Lancets 33G [facility] USE TO TEST BLOOD SUGAR TWICE DAILY 100 each 1 Trulicity 3 MG/0.5ML solution auto-injector INJECT ONE PEN (= 3MG) SUBCUTANEOUSLY ONCE A WEEK DIRECTED 2 mL 2 No current facility-administered medications on file prior to visit. Problem List Items Addressed This Visit Type 2 diabetes mellitus with hyperglycemia, without long-term current use of insulin ([facility]) Diabetes is: not controlled but improved - [...] current medications - Follow up: 3 months Relevant Orders POCT Glucose (Completed) POCT HGB A1C (Completed) Hypertensive disorder - Primary I advised low-sodium diet I advised to take her medications every day without missing any dose I asked patient to log her blood pressure and bring for next appointment with nurse in 2 weeks for blood pressure check, if blood pressure is not at goal my plan is to add losartan 25 mg daily documented in this encounter Miscellaneous Notes * Assessment & Plan Note - Nuzhat Rojas MD - 10/28/2024 10:12 AM EST Associated Problem(s): Type 2 diabetes mellitus with hyperglycemia, without long-term current use of insulin ([facility]) Diabetes is: not controlled but improved - [...] current medications - Follow up: 3 months * Assessment & Plan Note - Nuzhat Rojas MD - 10/28/2024 10:12 AM EST Associated Problem(s): Hypertensive disorder I advised low-sodium diet I advised to take her medications every day without missing any dose I asked patient to log her blood pressure and bring for next appointment with nurse in 2 weeks for blood pressure check, if blood pressure is not at goal my plan is to add losartan 25 mg daily documented in this encounter Plan of Treatment Upcoming Encounters Date Type Department Care Team (Late st Contact Info) Description 11/11/2024 1:00 PM EST Clinical Support [facility] [address] [place] [address] 12/08/2024 8:00 AM EDT Office Visit [facility] ADULT DENTAL [address] [place] [address] Lily Howe [address] [place] [address] 01/24/2025 9:45 AM EDT Office Visit [facility] [address] [place] [address] Nuzhat Chamberlain MD [address] [place] [address] documented as of this encounter Procedures Procedure Name Priority Date/Time Associated Diagnosis Comments POCT GLYCATED HEMOGLOBIN, TOTAL Routine 10/28/2024 9:41 AM EST Type 2 diabetes mellitus with hyperglycemia, without long-term current use of insulin ([facility]) POCT GLUCOSE Routine 10/28/2024 9:41 AM EST Type 2 diabetes mellitus with hyperglycemia, without long-term current use of insulin ([facility]) documented in this encounter Results * (ABNORMAL) POCT HGB A1C (10/28/2024 9:41 AM EST) Hemoglobin A1C 7.8(A) 4.0 - 6.0 % QC Media Lot # [id number] Lot# Expiration Date Blood 10/28/2024 9:41 AM EST us Nuzhat Rojas MD POINT OF CARE TEST EN TER/EDIT ORDERABLES Final Result * POCT Glucose (10/28/2024 9:41 AM EST) Glucose Blood, POC 169 60 - 200 mg/dL QC Media Lot # [id number] Lot# Expiration Date ,025 Blood Capillary blood specimen / Unknown 10/28/2024 9:41 AM EST Nuzhat Rojas MD POINT OF CARE TEST EN TER/EDIT ORDERABLES Final Result documented in this encounter Visit Diagnoses Diagnosis Primary hypertension- Primary Unspecified essential hypertension Type 2 diabetes mellitus with hyperglycemia, without long-term current use of insulin ([facility]) documented in this encounter Additional Health Concerns Assessment Noted Time PHQ-9 Depression Total Score: 0 04/27/20 24 9:14 AM EDT documented as of this encounter Care Teams Dermatology Teacher Relationship Specialty Start Date End Date Nuzhat Chamberlain MD [address] [place] [phone] PCP - General Family Medicine 10/31/20 documented as of this encounter
--- OUTSIDE RECORDS SUMMARY | 2024-10-29 08:10 | XMS_ITS | Encounter Summary ---
Author Organization [employer] Address [address] [facility] 7t [place] [address] Care Team Providers Care Implementation Manager Name Role Phone Nuzhat Chamberlain MD Primary Care Provide r Reason for Visit * Reason Comments Med Refill Encounter Details Date Type Department Care Team ([facility] st Contact Info) Description 10/19/2024 Refill [facility] [address] [place], [place] [phone] Nuzhat Chamberlain MD [address] [place], [place] [phone] Type 2 diabetes mellitus with hyperglycemia, without long-term current use of insulin ([facility]) Social History Tobacco Use Types Packs/Day Years [...] Description 11/11/2024 1:00 PM EST Clinical Support [facility] [address] [place] [address] 12/08/2024 8:00 AM EDT Office Visit [facility] ADULT DENTAL [address] [place] [phone] Luis Howearis [address] [place] [address] 01/24/2025 9:45 AM EDT Office Visit [facility] [address] [place] [address] Nuzhat Chamberlain MD [address] [place] [phone] documented as of this encounter Visit Diagnoses Diagnosis Type 2 diabetes mellitus with hyperglycemia, without long-term current use of insulin ([facility]) documented in this encounter Additional Health Concerns Assessment Noted Time PHQ-9 Depression Total Score: 0 04/27/20 24 9:14 AM EDT documented as of this encounter Care Teams Implementation Manager Relationship Specialty Start Date End Date Nuzhat Chamberlain MD [address] [place] [phone] PCP - General Family Medicine 10/31/20 documented as of this encounter
--- OUTSIDE RECORDS SUMMARY | 2024-10-29 08:10 | XMS_ITS | Encounter Summary ---
Author Organization [employer] Address [address] [facility] 7t [place] [address] Care Team Providers Care Professional Builder Name Role Phone Nuzhat Chamberlain MD Primary Care Provide r Encounter Details Date Type Department Care Team (Late st Contact Info) Description 02/26/2023 Orders Only [facility]INE [address] [place] [address] [phone] Tanna Jean LPN Social History Tobacco Use Types Packs/Day Years Used Date Smoking Tobacco: Never Passive Smoke Exposure: Never Smokeless Tobacco: Never Alcohol Use Standard Drinks/Week Comments Never 0 (1 standard drink = 0.6 oz pur e alcohol) PHQ-2 Answer Date Recorded Patient Health Questionnaire-2 Score 2 11/29/2022 Depression Answer Date Recorded Patient Health Questionnaire-2 [...] Description 11/11/2024 1:00 PM EST Clinical Support [facility] [address] [place], [place] [phone] 12/08/2024 8:00 AM EDT Office Visit [facility] ADULT DENTAL [address] [place] [address] Lily Howe [address] [place], [place] [phone] 01/24/2025 9:45 AM EDT Office Visit [facility] [address] [place] [address] Nuzhat Chamberlain MD [address] [place] [address] documented as of this encounter Visit Diagnoses Not on filedocumented in this encounter Care Teams Professional Builder Relationship Specialty Start Date End Date Nuzhat Chamberlain MD [address] [place] [phone] PCP - General Family Medicine 10/31/20 documented as of this encounter
--- OUTSIDE RECORDS SUMMARY | 2024-10-29 08:10 | XMS_ITS | Encounter Summary ---
Author Organization [employer] Address [address] [facility] [address] 7t [place] [address] Care Team Providers Care Power Line Installer Name Role Phone Nuzhat Chamberlain MD Primary Care Provide r Reason for Visit * Reason Comments Med Refill Encounter Details Date Type Department Care Team ([facility] st Contact Info) Description 10/20/2024 Refill [facility] [address] [place], [place] [phone] Nuzhat Chamberlain MD [address] [place], [place] [phone] Candidiasis, intertrigo Social History Tobacco Use Types Packs/Day Years [...] Description 11/11/2024 1:00 PM EST Clinical Support [facility] [address] [place] [address] 12/08/2024 8:00 AM EDT Office Visit [facility] ADULT DENTAL [address] [place] [address] Shyam, Lily [address] [place] [address] 01/24/2025 9:45 AM EDT Office Visit [facility] [address] [place] [phone] Nuzhat Chamberlain MD [address] [place] [address] documented as of this encounter Visit Diagnoses Diagnosis Candidiasis, intertrigo Candidiasis of skin and nails documented in this encounter Additional Health Concerns Assessment Noted Time PHQ-9 Depression Total Score: 0 04/27/20 24 9:14 AM EDT documented as of this encounter Care Teams Power Line Installer Relationship Specialty Start Date End Date Nuzhat Chamberlain MD [address] [place] [phone] PCP - General Family Medicine 10/31/20 documented as of this encounter
--- OUTSIDE RECORDS SUMMARY | 2024-10-29 08:10 | XMS_ITS | Encounter Summary ---
Author Organization [employer] Address [address] [facility] 7t [place] [address] Care Team Providers Care Editing Internship Name Role Phone Nuzhat Chamberlain MD Primary Care Provide r Reason for Visit * Reason Comments Med Refill Encounter Details Date Type Department Care Team ([facility] st Contact Info) Description 10/06/2023 Refill [facility] ADULT D[facility] [address] [place], [place] [phone] Ashutosh Thurman DDS [address] [place], [place] [phone] Necrosis of dental pulp Social History Tobacco Use Types Packs/Day Years [...] AM EDT documented as of this encounter Miscellaneous Notes * Telephone Encounter - Fernando Levy DMD - 10/06/2023 2:32 PM EST deangelo Narayan, I never saw this patient before. Thank you Dr. Levy documented in this encounter Plan of Treatment Upcoming Encounters Date Type Department Care Team (Late st Contact Info) Description 11/11/2024 1:00 PM EST Clinical Support [facility] [address] [place] [address] 12/08/2024 8:00 AM EDT Office Visit [facility] ADULT DENTAL [address] [place] [phone] Lily Howe [address] [place] [address] 01/24/2025 9:45 AM EDT Office Visit [facility] [address] [place] [address] Nuzhat Chamberlain MD [address] [place] [phone] documented as of this encounter Visit Diagnoses Diagnosis Necrosis of dental pulp documented in this encounter Care Teams Editing Internship Relationship Specialty Start Date End Date Nuzhat Chamberlain MD [address] [place] [phone] PCP - General Family Medicine 10/31/20 documented as of this encounter
--- OUTSIDE RECORDS SUMMARY | 2024-10-29 08:10 | XMS_ITS | Encounter Summary ---
Author Organization [employer] Address [address] [facility] 7t [place] [address] Care Team Providers Care Lens Coater Name Role Phone Nuzhat Chamberlain MD Primary Care Provide r Encounter Details Date Type Department Care Team (Latest Contact Info) Description 06/30/2020 Abstract [facility] CONVERSIONS Dental, Provider, DDS Social History [...] Description 11/11/2024 1:00 PM EST Clinical Support [facility] MED[facility]INE [address] [place] [address] 12/08/2024 8:00 AM EDT Office Visit [facility] ADULT DENTAL [address] [place] [address] Lily Howe [address] [place] [address] 01/24/2025 9:45 AM EDT Office Visit [facility] MED[facility]INE [address] [place] [address] Nuzhat Chamberlain MD [address] [place] [address] documented as of this encounter Visit Diagnoses Not on filedocumented in this encounter Care Teams Lens Coater Relationship Specialty Start Date End Date Nuzhat Chamberlain MD [address] [place] [phone] PCP - General Family Medicine 10/31/20 documented as of this encounter
--- OUTSIDE RECORDS SUMMARY | 2024-10-29 08:10 | XMS_ITS | Encounter Summary ---
Author Organization [employer] Address [address] [facility] [address] 7t [place] [address] Care Team Providers Care Zipper Trimmer Hand Name Role Phone Nuzhat Chamberlain MD Primary Care Provide r Encounter Details Date Type Department Care Team ([facility] st Contact Info) Description 06/11/2024 Orders Only [facility] [address] [place], [place] [phone] Nuzhat Chamberlain MD [address] [place], [place] [phone] Social History Tobacco Use Types Packs/Day Years [...] Description 11/11/2024 1:00 PM EST Clinical Support [facility] [address] [place] [address] 12/08/2024 8:00 AM EDT Office Visit [facility] ADULT DENTAL [address] [place] [phone] Shyam, Lily [address] [place] [address] 01/24/2025 9:45 AM EDT Office Visit [facility] [address] [place] [address] Nuzhat Chamberlain MD [address] [place] [address] documented as of this encounter Visit Diagnoses Not on filedocumented in this encounter Additional Health Concerns Assessment Noted Time PHQ-9 Depression Total Score: 0 04/27/20 24 9:14 AM EDT documented as of this encounter Care Teams Zipper Trimmer Hand Relationship Specialty Start Date End Date Nuzhat Chamberlain MD [address] [place] [address] PCP - General Family Medicine 10/31/20 documented as of this encounter
--- OUTSIDE RECORDS SUMMARY | 2024-10-29 08:10 | XMS_ITS | Encounter Summary ---
Author Organization [employer] Address [address] [facility] 7t [place] [address] Care Team Providers Care Public Works Inspector Name Role Phone Nuzhat Chamberlain MD Primary Care Provide r Reason for Visit * Reason Comments Pre-visit Planning (Unable to reach for PVP screening and or LVM) Encounter Details Date Type Department Care Team ([facility] st Contact Info) Description 10/15/2024 Patient Outreach [facility] [address] [place] [address] Nuzhat Chamberlain MD 230 [place], [place] [phone] Pre-visit Planning ((Unable to reach for PVP screening and or LVM)) Social History Tobacco Use Types Packs/Day Years [...] AM EDT documented as of this encounter Progress Notes * Christal Lovett - 10/15/2024 8:54 AM EST CC Christal placed outbound call to patient to complete pre-visit planning. No answer at this time. Patient name and were not confirmed. CC unable to leave a voice message. documented in this encounter Plan of Treatment Upcoming Encounters Date Type Department Care Team (Late st Contact Info) Description 11/11/2024 1:00 PM EST Clinical Support [facility] [address] [place] [address] 12/08/2024 8:00 AM EDT Office Visit [facility] ADULT DENTAL [address] [place] [address] Lily Howe [address] [place] [address] 01/24/2025 9:45 AM EDT Office Visit [facility] [address] [place] [address] Nuzhat Chamberlain MD [address] [place] [address] documented as of this encounter Visit Diagnoses Not on filedocumented in this encounter Additional Health Concerns Assessment Noted Time PHQ-9 Depression Total Score: 0 04/27/20 24 9:14 AM EDT documented as of this encounter Care Teams Public Works Inspector Relationship Specialty Start Date End Date Nuzhat Chamberlain MD [address] [place] [address] PCP - General Family Medicine 10/31/20 documented as of this encounter
--- OUTSIDE RECORDS SUMMARY | 2024-10-29 08:10 | XMS_ITS | Encounter Summary ---
Author Organization [employer] Address [address] [facility] 7t h Floor [place] [phone] Care Team Providers Care Accounting Instructor Name Role Phone Nuzhat Chamberlain MD Primary Care Provide r Encounter Details Date Type Department Care Team (Latest Contact Info) Description 03/26/[address] [facility] CONVERSIONS Dental, Provider, DDS Social History Tobacco [...] Description 11/11/2024 1:00 PM EST Clinical Support [facility] MEDICINE [address] [place] [address] 12/08/2024 8:00 AM EDT Office Visit [facility] ADULT DENTAL [address] [place] [address] Lily Howe [address] [place] [address] 01/24/2025 9:45 AM EDT Office Visit [facility] MEDICINE [address] [place] [address] Nuzhat Chamberlain MD [address] [place] [address] documented as of this encounter Visit Diagnoses Not on filedocumented in this encounter Care Teams Accounting Instructor Relationship Specialty Start Date End Date Nuzhat Chamberlain MD [address] [place] [address] PCP - General Family Medicine 10/31/20 documented as of this encounter
--- OUTSIDE RECORDS SUMMARY | 2024-10-29 08:10 | XMS_ITS | Encounter Summary ---
Author Organization [employer] Address [address] 7t [place] [address] Care Team Providers Care Janitor Helper Name Role Phone Nuzhat Chamberlain MD Primary Care Provide r Encounter Details Date Type Department Care Team (Late st Contact Info) Description 10/08/2022 Orders Only [facility] [address] [place], [place] [phone] Fay Jean RN Social History Tobacco Use Types Packs/Day Years Used Date Smoking Tobacco: Never Passive Smoke Exposure: Never Smokeless Tobacco: Never Alcohol Use Standard Drinks/Week Comments Never 0 (1 standard drink = 0.6 oz pur e alcohol) Comments Unknown Sex and Gender Information Value Date Recorded Sex Assigned at Female 07/15/2022 10:14 AM EDT Legal Sex Female 10:14 AM EDT Gender Identity Female 07/15/2022 10:14 AM EDT Sexual Orientation Straight 07/15/2022 10 :14 AM EDT COVID-19 Exposure Response Date Recorded In the last 10 days, have yo u been in contact with someone who was confirmed or suspected to have Coronavirus/COVID-19? No / Unsure 09/25/2022 1:14 PM EST documented as of this encounter Plan of Treatment Upcoming Encounters Date Type Department Care Team (Late st Contact Info) Description 11/11/2024 1:00 PM EST Clinical Support [facility] MEDICINE [address], [place] [phone] 12/08/2024 8:00 AM EDT Office Visit [facility] ADULT DENTAL [address], [place] [phone] Lily Howe [address] [place] [address] 01/24/2025 9:45 AM EDT Office Visit [facility] MEDICINE [address] [place] [address] Nuzhat Chamberlain MD [address] [place] [address] documented as of this encounter Procedures Procedure Name Priority Date/Time Associated Diagnosis Comments BI MAMMOGRAM SCREENING TOMOSYNTHESIS BILATERAL Routine 10/18/2022 9:10 AM EST documented in this encounter Results * BI Mammogram Screening Tomosynthesis Bilateral (10/18/2022 9:10 AM EST) Anatomical Region Laterality Modality Breast Bilateral Mammography 10/18/2022 9:10 AM EST Narrative 10/21/2022 10:08 AM EST ? [facility] ? [address] ?[place] [address] ? Mammography Report ? Signed ? Patient: Kevin,Tisha ?MR#: [id number] ?? [id number] ? : 1965 ?Acct:[id number] ? Age/Sex: 57 / F ?ADM Date: 10/18/ ? Loc: HO.MAMMO ? Attending Dr: Nuzhat Rojas MD ? Ordering Physician: Nuzhat Chamberlain MD ?Results: ?? 1Negative ? Date of Service: 10/18/ ?Follow Up: 1 Year From Orig ?? inal Mammogram ? Procedure(s): MM tomosynthesis screening BI ?? Accession Number(s): [id number] ? cc: Nuzhat Chamberlain MD ? EXAMINATION: ?? MM SCREENING DIGITAL BREAST TOMOSYNTHESIS, BILATERAL ? CLINICAL INFORMATION: ? Screening. Asymptomatic. ? The lifetime risk of breast cancer based on the Tyrer-Cuzick Model is ?? 10.7%. ? COMPARISON: ?? Mammography: October 16, 2021 and studies dating back to September 11, ?? 2016 ? TECHNIQUE: ?? Digital breast tomosynthesis is [...] tomosynthesis screening BI ?? IMPRESSION: ?? No significant changes from prior exam. ? ASSESSMENT: ? BI-RADS 1: Negative ? RECOMMENDATION: ?? Routine annual mammography screening. ? This patient's information was entered into a reminder system with a ?? target due date for their next mammogram. ? Dictated By: ?Frank Rodrigez MD ? Signed By: ?<Electronically signed by Frank Rodrigez MD in OV> ?10/21/22 1005 ? DD/ 0910 ? TD/TT: ? Hollock Maker: SK ? Procedure Note Simone Cordova - 10/21/2022 [facility] [address] [place] [address] Dr. [place], [place] [address] Mammography Report Signed Patient: Tisha Brown#: [id number] : 1965Acct:[id number] Age/Sex: 57 / FADM Date: 02/03/23 Loc: HO.MAMMO Attending Dr: Nuzhat Rojas MD Ordering Physician: Nuzhat Chamberlain MDResults: 1Negative Date of Service: 10/18/22Follow Up: 1 Year From Orig inal Mammogram Procedure(s): MM tomosynthesis screening BI Accession Number(s): [id number] cc: Nuzhat Chamberlain MD EXAMINATION: MM SCREENING DIGITAL BREAST TOMOSYNTHESIS, BILATERAL CLINICAL INFORMATION: Screening. Asymptomatic. The lifetime risk of breast cancer based on the Tyrer-Cuzick Model is 10.7%. COMPARISON: Mammography: October 16, 2021 and studies dating back to September 11, 2016 TECHNIQUE: Digital breast tomosynthesis is performed in both the craniocaudal and mediolateral oblique views along with computer-aided detection (CAD). Synthesized 2D images are generated from the tomosynthesis. FINDINGS: The breasts are heterogeneously dense, which may obscure small masses (ACR BI-RADS breast composition Category c). There are no significant masses, abnormal calcifications, or other abnormalities. MM/MM tomosynthesis screening BI IMPRESSION: No significant changes from prior exam. ASSESSMENT: BI-RADS 1: Negative RECOMMENDATION: Routine annual mammography screening. This patient's information was entered into a reminder system with a target due date for their next mammogram. Dictated By: Frank Rodrigez MD Signed By: <Electronically signed by Frank Rodrigez MD in OV> 10/21/22 1005 DD/ 0910 TD/TT: Hollock Maker: SK [facility] External Provider IMG BI PROCEDURES Edited Result - Final documented in this encounter Visit Diagnoses Not on filedocumented in this encounter Care Teams Janitor Helper Relationship Specialty Start Date End Date Nuzhat Chamberlain MD [address] [place] [phone] PCP - General Family Medicine 10/31/20 documented as of this encounter
== END 2024-10-29 08:08 | disposition home or self-care (01) ==
LOC: HO.MAMMO 08:07
PROVIDERS: PCP Internal Medicine; Visit Provider Internal Medicine
DX: Z12.31 Encounter for screening mammogram for malignant neoplasm of breast (principal)
CPT/HCPCS: 77063; 77067

== ENCOUNTER → 2024-10-29 09:00 | Outpatient (BNV) | payer MEDICAID, SELFPAY | PROVIDERS: PCP Internal Medicine; Visit Provider Internal Medicine | DX: Z12.31 Encounter for screening mammogram for malignant neoplasm of breast (principal) | CPT/HCPCS: 77063; 77067 ==

== ENCOUNTER 2024-11-02 08:54 | Outpatient (REF) | payer MEDICAID, SELFPAY ==
--- OUTSIDE RECORDS SUMMARY | 2024-11-02 09:24 | XMS_ITS | Continuity of Care Document ---
Author Organization [facility] ion Address [address] [place] [address]- Care Team Providers Care Mercury Cracking Tester Name Role Phone Sumaya Rojas MD, Nuzhat Quinonez Primary Care Physici an Encounter [facility] Date(s): 10/01/24 - 10/31/[address] [address]- Attending Physician: Markus Lopez Admitting Physician: Markus Lopez Referring Physician: Admtr ArJose Encounter Type: Triage Allergies, Adverse Reactions, Alerts No Known Allergies Medications Aspirin 0 Refills, Maintenance, 05/19/13 11:07:50 AM EDT Start Date: 05/19/13 Status: Ordered Repeat number: 1 Atorvastatin By Mouth, Daily at bedtime, Maintenance, 06/22/14 9:46:08 AM EDT Start Date: 06/22/14 Status: Ordered Repeat number: 1 Cholecalciferol Tablet By Mouth, 0 Refills, Maintenance, 06/22/14 9:46:52 AM EDT Start Date: 06/22/14 Status: Ordered Repeat number: 1 levothyroxine 0.088 mg oral tablet 1 tablet = 88 mcg, By Mouth, Daily, # 30 tablet, 11 Refills, Maintenance, 10/10/22 10:30:00 AM EST, Tablet, [facility], 157.4, cm, 03/22/22 8:55:00 EDT, Height Start Date: 10/10/22 Stop Date: 10/05/23 Status: Ordered Quantity: 30.0 Unit: tablet Repeat number: 12 Metformin By Mouth, 0 Refills, Maintenance, 06/22/14 9:45:47 AM EDT Start Date: 06/22/14 Status: Ordered Repeat number: 1 Patient Care team information Care Team Personnel Name: Nuzhat Chamberlain MD Position: [facility] Outreach Member Role: PCP Address: [address] [place] [address] [address] Telecom: Care Team Related Persons Name: BEULAH PATTERSON Name: FAVIAN TEJADA Insurance Providers Guarantor name: KAMALJIT TEJADA Health Plan Information #: 1 Payer: [facility] Member Number: NA Policy Number: NA Group Number: [id number]
== END 2024-11-02 08:55 | disposition home or self-care (01) ==
LOC: HO.HHCL 08:54
PROVIDERS: Visit Provider Internal Medicine
DX: Z13.89 Encounter for screening for other disorder (principal)

== ENCOUNTER 2024-11-02 14:11 | Outpatient (REF) | payer MEDICAID, SELFPAY ==
--- OUTSIDE RECORDS SUMMARY | 2024-11-02 15:13 | XMS_ITS | Encounter Summary ---
Author Organization [employer] Address [address] [facility] 7t [place] [address] Care Team Providers Care Magazine Hand Name Role Phone Nuzhat Chamberlain MD Primary Care Provide r Encounter Details Date Type Department Care Team (Latest Contact Info) Description 12/23/2018 Abstract [facility] CONVERSIONS Dental, Provider, DDS Social History [...] Description 11/11/2024 1:00 PM EST Clinical Support [facility] MEDICINE [address] [place] [address] 12/08/2024 8:00 AM EDT Office Visit [facility] ADULT DENTAL [address] [place] [address] Lily Howe [address] [place] [address] 01/24/2025 9:45 AM EDT Office Visit [facility] MEDICINE [address] [place] [address] Nuzhat Chamberlain MD [address] [place] [address] documented as of this encounter Visit Diagnoses Not on filedocumented in this encounter Care Teams Magazine Hand Relationship Specialty Start Date End Date Nuzhat Chamberlain MD [address] [place] [phone] PCP - General Family Medicine 10/31/20 documented as of this encounter
--- OUTSIDE RECORDS SUMMARY | 2024-11-02 15:13 | XMS_ITS | Encounter Summary ---
Author Organization [employer] Address [address] 7t [place] [address] Care Team Providers Care Window Shade Ring Coverer Name Role Phone Nuzhat Chamberlain MD Primary Care Provide r Encounter Details Date Type Department Care Team ([facility] st Contact Info) Description 06/11/2024 Orders Only [facility] MEDICINE [address] [place], [place] [phone] Nuzhat Chamberlain MD [address] [place], [place] [phone] Social History Tobacco Use Types Packs/Day Years [...] Description 11/11/2024 1:00 PM EST Clinical Support [facility] MEDICINE [address] [place] [address] 12/08/2024 8:00 AM EDT Office Visit [facility] ADULT DENTAL [address] [place] [address] Shyam, Lily [address] [place] [address] 01/24/2025 9:45 AM EDT Office Visit [facility] MEDICINE [address] [place] [address] Nuzhat Chamberlain MD [address] [place] [phone] documented as of this encounter Visit Diagnoses Not on filedocumented in this encounter Additional Health Concerns Assessment Noted Time PHQ-9 Depression Total Score: 0 04/27/20 24 9:14 AM EDT documented as of this encounter Care Teams Window Shade Ring Coverer Relationship Specialty Start Date End Date Nuzhat Chamberlain MD [address] [place] [phone] PCP - General Family Medicine 10/31/20 documented as of this encounter
--- OUTSIDE RECORDS SUMMARY | 2024-11-02 15:13 | XMS_ITS | Encounter Summary ---
Author Organization [employer] Address [address] [facility] 7t [place] [address] Care Team Providers Care Retail Management Keyholder Name Role Phone Nuzhat Chamberlain MD Primary Care Provide r Encounter Details Date Type Department Care Team ([facility] st Contact Info) Description 10/28/2024 10:00 AM EST Office Visit [facility] MEDICINE [address] [place], [place] [phone] Nuzhat Chamberlain MD [address] [place], [place] [phone] Primary hypertension (Primary Dx); Type 2 diabetes mellitus with hyperglycemia, without long-term current use of insulin ([facility]) Social History Tobacco Use Types [...] daily. 10 mL 2 TRUEplus Lancets 33G [facility] USE TO TEST BLOOD SUGAR TWICE DAILY 100 each 1 Trulicity 3 MG/0.5ML solution auto-injector INJECT ONE PEN (= 3MG) SUBCUTANEOUSLY ONCE A WEEK DIRECTED 2 mL 2 No current facility-administered medications on file prior to visit. Problem List Items Addressed This Visit Type 2 diabetes mellitus with hyperglycemia, without long-term current use of insulin ([facility]) Diabetes is: not controlled but improved - [...] hyperglycemia, without long-term current use of insulin ([facility]) Diabetes is: not controlled but improved - [...] Description 11/11/2024 1:00 PM EST Clinical Support [facility]IC[facility] [address] [place] [address] 12/08/2024 8:00 AM EDT Office Visit [facility] ADULT DENTAL [address] [place] [address] Lily Howe [address] [place] [address] 01/24/2025 9:45 AM EDT Office Visit [facility] MEDICINE [address] [place] [address] Nuzhat Chamberlain MD [address] [place] [address] documented as of this encounter Procedures Procedure Name Priority Date/Time Associated Diagnosis Comments POCT GLYCATED HEMOGLOBIN, TOTAL Routine 10/28/2024 9:41 AM EST Type 2 diabetes mellitus with hyperglycemia, without long-term current use of insulin ([facility]) POCT GLUCOSE Routine 10/28/2024 9:41 AM EST Type 2 diabetes mellitus with hyperglycemia, without long-term current use of insulin ([facility]) documented in this encounter Results * (ABNORMAL) [...] hyperglycemia, without long-term current use of insulin ([facility]) documented in this encounter Additional Health Concerns Assessment Noted Time PHQ-9 Depression Total Score: 0 04/27/20 24 9:14 AM EDT documented as of this encounter Care Teams Retail Management Keyholder Relationship Specialty Start Date End Date Nuzhat Chamberlain MD [address] [place] [phone] PCP - General Family Medicine 10/31/20 documented as of this encounter
--- OUTSIDE RECORDS SUMMARY | 2024-11-02 15:13 | XMS_ITS | Encounter Summary ---
Author Organization [employer] Address [address] [facility] 7t [place] [address] Care Team Providers Care Hand Trimmer Name Role Phone Nuzhat Chamberlain MD Primary Care Provide r Reason for Visit * Reason Comments Med Refill Encounter Details Date Type Department Care Team ([facility] st Contact Info) Description 10/07/2024 Refill [facility] MEDICINE [address] [place], [place] [phone] Nuzhat Chamberlain MD [address] [place], [place] [phone] Type 2 diabetes mellitus with hyperglycemia, without long-term current use of insulin ([facility]) Social History Tobacco Use Types [...] Description 11/11/2024 1:00 PM EST Clinical Support [facility] MEDICINE [address] [place] [address] 12/08/2024 8:00 AM EDT Office Visit [facility] ADULT DENTAL [address] [place] [address] Luis Howearis [address] [place] [address] 01/24/2025 9:45 AM EDT Office Visit [facility] MEDICINE [address] [place] [address] Nuzhat Chamberlain MD [address] [place] [phone] documented as of this encounter Visit Diagnoses Diagnosis Type 2 diabetes mellitus with hyperglycemia, without long-term current use of insulin ([facility]) documented in this encounter Additional Health Concerns Assessment Noted Time PHQ-9 Depression Total Score: 0 04/27/20 24 9:14 AM EDT documented as of this encounter Care Teams Hand Trimmer Relationship Specialty Start Date End Date Nuzhat Chamberlain MD [address] [place] [phone] PCP - General Family Medicine 10/31/20 documented as of this encounter
--- OUTSIDE RECORDS SUMMARY | 2024-11-02 15:13 | XMS_ITS | Encounter Summary ---
Author Organization [employer] Address [address] [facility] 7t [place] [address] Care Team Providers Care Vocational Services Specialist Name Role Phone Nuzhat Chamberlain MD Primary Care Provide r Encounter Details Date Type Department Care Team (Late st Contact Info) Description 02/26/2023 Orders Only [facility] MEDICINE [address] [place] [address] [phone] Tanna Jean LPN Social History Tobacco Use [...] [facility] MED[facility] [address] [place], [place] [phone] 12/08/2024 8:00 AM EDT Office Visit [facility] ADULT DENTAL [address] [place] [address] Lily Howe [address] [place], [place] [phone] 01/24/2025 9:45 AM EDT Office Visit [facility] MEDICINE [address] [place] [address] Nuzhat Chamberlain MD [address] [place] [address] documented as of this encounter Visit Diagnoses Not on filedocumented in this encounter Care Teams Vocational Services Specialist Relationship Specialty Start Date End Date Nuzhat Chamberlain MD [address] [place] [phone] PCP - General Family Medicine 10/31/20 documented as of this encounter
--- OUTSIDE RECORDS SUMMARY | 2024-11-02 15:13 | XMS_ITS | Encounter Summary ---
Author Organization [employer] Address [address] [facility] 7t [place] [address] Care Team Providers Care Lead Systems Developer Name Role Phone Nuzhat Chamberlain MD Primary Care Provide r Reason for Visit * Reason Comments Pre-visit Planning (Unable to reach for PVP screening and or LVM) Encounter Details Date Type Department Care Team ([facility] st Contact Info) Description 10/15/2024 Patient Outreach [facility] MEDICINE [address] [place] [address] Nuzhat Chamberlain MD [address] [place], [place] [phone] Pre-visit Planning ((Unable to reach for PVP [...] Description 11/11/2024 1:00 PM EST Clinical Support [facility] MEDICINE [address] [place] [address] 12/08/2024 8:00 AM EDT Office Visit [facility] ADULT DENTAL [address] [place] [address] Lily Howe [address] [place] [address] 01/24/2025 9:45 AM EDT Office Visit [facility] MEDICINE [address] [place] [phone] Nuzhat Chamberlain MD [address] [place] [address] documented as of this encounter Visit Diagnoses Not on filedocumented in this encounter Additional Health Concerns Assessment Noted Time PHQ-9 Depression Total Score: 0 04/27/20 24 9:14 AM EDT documented as of this encounter Care Teams Lead Systems Developer Relationship Specialty Start Date End Date Nuzhat Chamberlain MD [address] [place] [address] PCP - General Family Medicine 10/31/20 documented as of this encounter
--- OUTSIDE RECORDS SUMMARY | 2024-11-02 15:13 | XMS_ITS | Encounter Summary ---
Author Organization [employer] Address [address] [facility] [address] 7t [place] [address] Care Team Providers Care Fiberglass Technician Name Role Phone Nuzhat Chamberlain MD Primary Care Provide r Reason for Visit * Reason Comments Med Refill Encounter Details Date Type Department Care Team ([facility] st Contact Info) Description 10/12/2024 Refill [facility] [address] [place], [place] [phone] Winnie Kaur NP 230 [place], [place] [phone] Hordeolum externum of right lower eyelid Social [...] Description 11/11/2024 1:00 PM EST Clinical Support [facility] MEDICINE [address] [place] [address] 12/08/2024 8:00 AM EDT Office Visit [facility] ADULT DENTAL [address] [place] [address] Shyam, Lily [address] [place] [address] 01/24/2025 9:45 AM EDT Office Visit [facility] MEDICINE [address] [place] [address] Nuzhat Chamberlain MD [address] [place] [address] documented as of this encounter Visit Diagnoses Diagnosis Hordeolum externum of right lower eyelid documented in this encounter Additional Health Concerns Assessment Noted Time PHQ-9 Depression Total Score: 0 04/27/20 24 9:14 AM EDT documented as of this encounter Care Teams Fiberglass Technician Relationship Specialty Start Date End Date Nuzhat Chamberlain MD [address] [place] [phone] PCP - General Family Medicine 10/31/20 documented as of this encounter
--- OUTSIDE RECORDS SUMMARY | 2024-11-02 15:13 | XMS_ITS | Clinical Summary ---
Author Organization [employer] Address [address] 7t [place] [address] Care Team Providers Care Hand Stonecutter Name Role Phone Nuzhat Chamberlain MD Primary [...] hyperglycemia, without long-term current use of insulin ([facility]) Take 1 capsule (25 mcg) by mouth in the morning. 90 capsule 2022 Active glucose blood (FREESTYLE LITE) test strip TEST BLOOD SUGAR TWICE DAILY 50 strip 11 2022 Active Blood Glucose Monitoring Suppl (FreeStyle Lite) w/Device kitIndications:Type 2 diabetes mellitus with hyperglycemia, without long-term current use of insulin ([facility]) 1 kit 2 times daily. 1 kit [...] hyperglycemia, without long-term current use of insulin ([facility]) INJECT ONE PEN (= 3MG) SUBCUTANEOUSLY ONCE [...] Description 10/28/2024 10:00 AM EST Office Visit [facility] [address] [place] [address] Nuzhat Chamberlain MD Primary hypertension (Primary Dx); Type 2 diabetes mellitus with hyperglycemia, without long-term current use of insulin ([facility]) 10/28/2024 Travel 10/20/2024 Refill [facility] [address] [place] [address] Nuzhat Chamberlain MD Candidiasis, intertrigo 10/19/2024 Refill [facility] [address] [place] [address] Nuzhat Chamberlain MD Type 2 diabetes mellitus with hyperglycemia, without long-term current use of insulin ([facility]) 10/15/2024 Patient Outreach [facility] [address] [place] [address] Nuzhat Chamberlain MD Pre-visit Planning ((Unable to reach for PVP screening and or LVM)) 10/12/2024 Refill [facility] [address] [place] [address] Winnie Kaur NP Hordeolum externum of right lower eyelid 10/07/2024 Refill [facility] [address] [place] [address] Nuzhat Chamberlain MD Type 2 diabetes mellitus with hyperglycemia, without long-term current use of insulin ([facility]) 09/24/2024 Refill [facility] [address] [place] [address] Nuzhat Chamberlain MD Onychomycosis 09/16/2024 1:40 PM EST Office Visit [facility] [address] [place] [address] Winnie Kaur, NIA Hordeolum externum of right lower eyelid (Primary Dx); Elevated blood pressure reading in office with diagnosis of hypertension 08/31/2024 Refill [facility] [address] [place] [address] Nuzhat Chamberlain MD Candidiasis, intertrigo from Last 3 Months Immunizations Name Administration [...] Description 11/11/2024 1:00 PM EST Clinical Support [facility] [address] [place] [address] 12/08/2024 8:00 AM EDT Office Visit [facility] ADULT DENTAL [address] [place] [address] Lily Howe [address] [place] [address] 01/24/2025 9:45 AM EDT Office Visit [facility] [address] [place] [address] Nuzhat Chamberlain MD [address] [place] [address] Health Maintenance Due Date Last Done Comments [...] Colorectal Cancer Screening 07/25/2024 Mammogram 10/24/2024 10/24/2023, 02/0 11/2022, 10/18/2022, Additional history exists Dental Oral Exam [...] hyperglycemia, without long-term current use of insulin ([facility]) POCT GLUCOSE Routine 10/28/2024 9:41 AM EST Type 2 diabetes mellitus with hyperglycemia, without long-term current use of insulin ([facility]) LIPID PANEL, STANDARD Routine 07/29/2024 11:40 AM EST Type 2 diabetes mellitus with hyperglycemia, without long-term current use of insulin ([facility]) PROPHYLAXIS - ADULT Routine 06/09/2024 9 :00 [...] complication, without long-term current use of insulin ([facility]) THINPREP IMAGING PAP AND HPV MRNA E6/E7 [...] Media Lot # [id number] Lot# Expiration Date ,254 Blood Capillary blood specimen / Unknown 10/28/2024 9:41 AM EST Nuzhat Rojas MD POINT OF CARE TEST EN TER/EDIT ORDERABLES Final Result * (ABNORMAL) Lipid Panel, Standard (07/29/2024 11:40 AM EST) Triglycerides 172(H) <150 mg/dL [facility] Comment:Desirable Triglyceri de: less than 150 mg/dLBorderline High Triglyceride 150-199 mg/dLHigh Triglyceride: 200-499 mg/dLVery High Triglyceride: greater than or equal to 5OO mg/dL Cholesterol 143 <200 mg/dL [facility] Comment:Desirable Cholestero l: less than 200 mg/dLBorderline High Cholesterol: 200-239 mg/dLHigh Cholesterol: greater than 239 mg/dL LDL Cholesterol Calculated 60 <100 mg/dL [facility] Comment:Desirable LDL: less than 100 mg/dLNear Optimal/Above Optimal LDL: 110- 129 mg/dLBorderline High LDL: 130-159 mg/dLHigh LDL: 160-189 mg/dLVery High LDL: greater than or equal to 190 mg/dL HDL Cholesterol 49 >40 mg/dL [facility] Comment:Desirable HDL: great er than 40 mg/dL Note: This HDL assay may give artificially low results in patients with liver disease. Blood Venous blood specimen / Unknown 07/29/2024 11:40 AM EST 07/29/2024 1:26 PM EST us Kathya Sumaya Rojas MD LAB BLOOD ORDERABLES Final Result [facility] [address] [facility] [place] [address] [phone] * BI Mammogram Screening Tomosynthesis Bilateral (10/24/2023 8:50 AM EST) Anatomical Region Laterality Modality Breast Bilateral Mammography 10/24/2023 8:50 AM EST Narrative 11/04/2023 12:37 PM EST ? [facility] [place] ? [address] ?[place] [address] ? Mammography Report ? Signed ? Patient: Kevin,Tisha ?MR#: [id number] ?? [id number] ? : 1965 ?Acct:[id number] ? Age/Sex: 58 / F ?ADM Date: 10/24/23 ? Loc: HO.MAMMO ? Attending Dr: Nuzhat Rojas MD ? Ordering Physician: Nuzhat Chamberlain MD ?Results: ?? 1Negative ? Date of Service: 10/24/23 ?Follow Up: 1 Year From Orig ?? inal Mammogram ? Procedure(s): MM tomosynthesis screening BI ?? Accession Number(s): [id number] ? cc: Nuzhat Chamberlain MD ? EXAMINATION: [...] 1233 ? DD/ 0850 ? TD/TT: ? Software Engineer Mobile: ? Procedure Note Tasha, Image - 11/04/2023 [facility] [address] [place] [address] [place] [address] Mammography Report Signed Patient: Erickson Brown#: [id number] : 1965Acct:[id number] Age/Sex: 58 / FADM Date: 10/24/23 Loc: FREDI Attending Dr: Nuzhat Rojas MD Ordering Physician: Nuzhat Chamberlainesults: 1Negative Date of Service: 10/24/23Follow Up: 1 Year From Orig inal Mammogram Procedure(s): MM tomosynthesis screening BI Accession Number(s): [id number] cc: Nuzhat Chamberlain MD EXAMINATION: MM SCREENING [...] in OV> 11/04/23 1233 DD/ 0850 TD/TT: Software Engineer Mobile: Nuzhat Rojas MD IMG BI PROCEDURES Fin al Result * Albumin, Random Urine W/O Creatinine (12/02/2022 9:29 AM EDT) Albumin, Urine 0.3 See Note: mg/dL [facility] [employer] [facility] Comment: Reference Range: Reference Range Not established YESSICA [facility] [place] [facility] Comment: The ADA defines abnormalities in albumin [...] URINE ORDERABLES Fin al Result [facility] [address], [place] [address] [facility] [address] [place] [address] * THINPREP TIS PAP AND HPV mRNA E6/E7 WITH REFLEX TO HPV 16,18/45 (10/11/2021 10:50 AM EST) Clinical Information: NIL/NEG 2016 [facility] COMMENT SEE COMMENT [facility] ON [...] has been evaluated with computer assisted technology. [employer] [facility] [employer] Set Up Technician: SEE COMMENT [facility] Comment: CMG, CT(ASCP) CT screening location: [address] ??[address] HPV nRNA E6/E7 Not Detected Not Detected [facility] X [facility] Comment: Methodology: Physics And Astronomy Professor-Mediated Amplification This assay detects E6/E7 viral messenger RNA (mRNA) from 14 high-risk HPV types (16,18,31,33,35,39,45,51,52,56,58,59,66,68). ? The analytical performance characteristics of this assay have been determined by [employer]. The modifications have not been cleared or approved by the FDA. This assay has been validated pursuant to the CLIA regulations and is used for clinical purposes. ?? For additional information, please refer to http://education.Stepcase.Xoopit/faq/OQB155n8 (This link if provided for information/ educational purposes only.) Interpretation/Re sult: Negative for intraepithelial lesion or malignancy. [facility] LMP: 56 [facility] Prev. BX: NONE GIVEN [facility] Prev. PAP: NONE GIVEN [facility] SOURCE: None given [facility] Statement Of Adequacy: SEE COMMENT [facility] Comment: Satisfactory for evaluation. Endocervical/transformation zone component present. 10/11/2021 10:5 0 AM EST [facility] ORDERABLES Final Result [facility] [address] [place] [address], * Pap Smear (10/11/2021 12:00 AM EST) Swab [facility] ORDERABLES F inal Result [address], [place] [address] from Last 3 Months or Most Recently Relevant to Health Maintenance Insurance [facility] C3 DENTAL-[facility] MEDICAID STAND ADULT Care Teams Hand Stonecutter Relationship Specialty Start Date End Date Nuzhat Chamberlain MD [address] [place] [address] [place] [address] PCP - General Family Medicine 10/31/20
--- OUTSIDE RECORDS SUMMARY | 2024-11-02 15:13 | XMS_ITS | Encounter Summary ---
Author Organization [employer] Address [address] 7[address] [place] [address] Care Team Providers Care Tare Weigher Name Role Phone Nuzhat Chamberlain MD Primary Care Provide r Encounter Details Date Type Department Care Team (Late st Contact Info) Description 10/08/2022 Orders Only [facility] [address] [place], [place] [phone] Fay Jean RN Social History Tobacco Use [...] Description 11/11/2024 1:00 PM EST Clinical Support [facility] [address] [place], [place] [phone] 12/08/2024 8:00 AM EDT Office Visit [facility] ADULT DENTAL [address] [place], [place] [phone] Lily Howe [address] [place] [address] 01/24/2025 9:45 AM EDT Office Visit [facility] [address] [place] [address] Nuzhat Chamberlain MD [address] [place] [address] documented as of this encounter Procedures Procedure Name Priority Date/Time Associated Diagnosis Comments BI MAMMOGRAM SCREENING TOMOSYNTHESIS BILATERAL Routine 10/18/2022 9:10 AM EST documented in this encounter Results * BI Mammogram Screening Tomosynthesis Bilateral (10/18/2022 9:10 AM EST) Anatomical Region Laterality Modality Breast Bilateral Mammography 10/18/2022 9:10 AM EST Narrative 10/21/2022 10:08 AM EST ? [facility] [place] ? [address] ?[place] [address] ? Mammography Report ? Signed ? Patient: Kevin,Tisha ?MR#: [id number] ?? [id number] ? : 1965 ?Acct:[id number] ? Age/Sex: 57 / F ?ADM Date: 10/18/ ? Loc: HO.MAMMO ? Attending Dr: Nuzhat Rojas MD ? Ordering Physician: Nuzhat Chamberlain MD ?Results: ?? 1Negative ? Date of Service: 10/18/ ?Follow Up: 1 Year From Orig ?? inal Mammogram ? Procedure(s): MM tomosynthesis screening BI ?? Accession Number(s): [id number] ? cc: Nuzhat Chamberlain MD ? EXAMINATION: [...] 1005 ? DD/ 0910 ? TD/TT: ? Medical Office Receptionist Assistant: SK ? Procedure Note Simone Cordova - 10/21/2022 [facility] [address] [place] [address] Dr. [place], [place] [address] Mammography Report Signed Patient: Tisha Brown#: [id number] : 1965Acct:[id number] Age/Sex: 57 / FADM Date: 02/03/23 Loc: HO.MAMMO Attending Dr: Nuzhat Rojas MD Ordering Physician: Nuzhat Chamberlain MDResults: 1Negative Date of Service: 10/18/22Follow Up: 1 Year From Orig inal Mammogram Procedure(s): MM tomosynthesis screening BI Accession Number(s): [id number] cc: Nuzhat Chamberlain MD EXAMINATION: MM SCREENING [...] in OV> 10/21/22 1005 DD/ 0910 TD/TT: Medical Office Receptionist Assistant: SK [facility] External Provider IMG BI PROCEDURES Edited Result - Final documented in this encounter Visit Diagnoses Not on filedocumented in this encounter Care Teams Tare Weigher Relationship Specialty Start Date End Date Nuzhat Chamberlain MD [address] [place] [address] PCP - General Family Medicine 10/31/20 documented as of this encounter
--- OUTSIDE RECORDS SUMMARY | 2024-11-02 15:13 | XMS_ITS | Encounter Summary ---
Author Organization [employer] Address [address] [facility] 7t [place] [address] Care Team Providers Care Vehicle Maintenance Supervisor Name Role Phone Nuzhat Chamberlain MD Primary Care Provide r Reason for Visit * Reason Comments Med Refill Encounter Details Date Type Department Care Team ([facility] st Contact Info) Description 10/19/2024 Refill [facility] [address] [place], [place] [phone] Nuzhat Chamberlain MD [address] [place], [place] [phone] Type 2 diabetes mellitus with hyperglycemia, without long-term current use of insulin ([facility]) Social History Tobacco Use Types [...] Description 11/11/2024 1:00 PM EST Clinical Support [facility] [address] [place] [address] 12/08/2024 8:00 AM EDT Office Visit [facility] ADULT DENTAL [address] [place] [address] Luis Howearis 230 [place] [address] 01/24/2025 9:45 AM EDT Office Visit [facility] [address] [place] [address] Nuzhat Chamberlain MD [address] [place] [address] documented as of this encounter Visit Diagnoses Diagnosis Type 2 diabetes mellitus with hyperglycemia, without long-term current use of insulin ([facility]) documented in this encounter Additional Health Concerns Assessment Noted Time PHQ-9 Depression Total Score: 0 04/27/20 24 9:14 AM EDT documented as of this encounter Care Teams Vehicle Maintenance Supervisor Relationship Specialty Start Date End Date Nuzhat Chamberlain MD [address] [place] [phone] PCP - General Family Medicine 10/31/20 documented as of this encounter
--- OUTSIDE RECORDS SUMMARY | 2024-11-02 15:13 | XMS_ITS | Encounter Summary ---
Author Organization [employer] Address [address] 7t [place] [address] Care Team Providers Care Human Machine Interface Engineer Name Role Phone Nuzhat Chamberlain MD Primary Care Provide r Reason for Visit * Reason Comments Med Refill Encounter Details Date Type Department Care Team ([facility] st Contact Info) Description 10/20/2023 Refill [facility] [address] [place], [place] [phone] Nuzhat Chamberlain MD 230 [place], [place] [phone] Type 2 diabetes mellitus with hyperglycemia, without long-term current use of insulin ([facility]); Elevated blood sugar Social History Tobacco Use [...] Description 11/11/2024 1:00 PM EST Clinical Support [facility] [address] [place] [address] 12/08/2024 8:00 AM EDT Office Visit [facility] ADULT D[facility] [address] [place] [address] Shyam, Lily 230 [place] [address] 01/24/2025 9:45 AM EDT Office Visit [facility] [address] [place] [address] Nuzhat Chamberlain MD [address] [place] [address] documented as of this encounter Visit Diagnoses Diagnosis Type 2 diabetes mellitus with hyperglycemia, without long-term current use of insulin ([facility]) Elevated blood sugar Other abnormal glucose documented in this encounter Care Teams Human Machine Interface Engineer Relationship Specialty Start Date End Date Nuzhat Chamberlain MD [address] [place] [address] PCP - General Family Medicine 10/31/20 documented as of this encounter
--- OUTSIDE RECORDS SUMMARY | 2024-11-02 15:13 | XMS_ITS | Encounter Summary ---
Author Organization [employer] Address [address] [facility] 7t [place] [address] Care Team Providers Care Drier Transfer Car Operator Name Role Phone Nuzhat Chamberlain MD Primary Care Provide r Reason for Visit * Reason Comments Med Refill Encounter Details Date Type Department Care Team ([facility] st Contact Info) Description 10/06/2023 Refill [facility]ULT [facility] [address] [place], [place] [phone] Ashutosh Thurman DDS [address] [place], [place] [phone] Necrosis of dental pulp Social History Tobacco [...] Description 11/11/2024 1:00 PM EST Clinical Support [facility] [address] [place] [address] 12/08/2024 8:00 AM EDT Office Visit [facility] ADULT D[facility] [address] [place] [address] Lily Howe [address] [place] [address] 01/24/2025 9:45 AM EDT Office Visit [facility] [address] [place] [address] Nuzhat Chamberlain MD [address] [place] [address] documented as of this encounter Visit Diagnoses Diagnosis Necrosis of dental pulp documented in this encounter Care Teams Drier Transfer Car Operator Relationship Specialty Start Date End Date Nuzhat Chamberlain MD [address] [place] [phone] PCP - General Family Medicine 10/31/20 documented as of this encounter
--- OUTSIDE RECORDS SUMMARY | 2024-11-02 15:13 | XMS_ITS | Encounter Summary ---
Author Organization [employer] Address [address] [facility] [address] [facility] [address] 7t [place] [address] Care Team Providers Care Check Inspector Name Role Phone Nuzhat Chamberlain MD [...] Description 11/11/2024 1:00 PM EST Clinical Support [facility] 230 [place] [address] 12/08/2024 8:00 AM EDT Office Visit [facility] ADULT DENTAL 230 [place], [place] [phone] Lily Howe 230 [place] [address] 01/24/2025 9:45 AM EDT Office Visit [facility] [address] [place] [address] Nuzhat Chamberlain MD [address] [place] [address] documented as of this encounter Visit Diagnoses Not on filedocumented in this encounter Additional Health Concerns Assessment Noted Time PHQ-9 Depression Total Score: 0 04/27/20 24 9:14 AM EDT documented as of this encounter Care Teams Check Inspector Relationship Specialty Start Date End Date Nuzhat Chamberlain MD [address] [place] [phone] PCP - General Family Medicine 10/31/20 documented as of this encounter
--- OUTSIDE RECORDS SUMMARY | 2024-11-02 15:13 | XMS_ITS | Encounter Summary ---
Author Organization [employer] Address [address] 7[address] [place] [address] Care Team Providers Care Administration Manager Name Role Phone Nuzhat Chamberlain MD Primary Care Provide r Reason for Visit * Reason Comments Med Refill Encounter Details Date Type Department Care Team ([facility] st Contact Info) Description 10/20/2024 Refill [facility] 230 [place], [place] [phone] Nuzhat Chamberlain MD [address] [place], [place] [phone] Candidiasis, intertrigo Social History Tobacco Use Types [...] Description 11/11/2024 1:00 PM EST Clinical Support [facility] [address] [place] [address] 12/08/2024 8:00 AM EDT Office Visit [facility] ADULT DENTAL 230 [place] [address] Shyam, Lily 230 [place] [address] 01/24/2025 9:45 AM EDT Office Visit [facility] [address] [place] [address] Nuzhat Chamberlain MD [address] [place] [address] documented as of this encounter Visit Diagnoses Diagnosis Candidiasis, intertrigo Candidiasis of skin and nails documented in this encounter Additional Health Concerns Assessment Noted Time PHQ-9 Depression Total Score: 0 04/27/20 24 9:14 AM EDT documented as of this encounter Care Teams Administration Manager Relationship Specialty Start Date End Date Nuzhat Chamberlain MD [address] [place] [phone] PCP - General Family Medicine 10/31/20 documented as of this encounter
--- OUTSIDE RECORDS SUMMARY | 2024-11-02 15:13 | XMS_ITS | Encounter Summary ---
Author Organization [employer] Address [address] [facility] 7t [place] [address] Care Team Providers Care Head Filter Press Tender Name Role Phone Nuzhat Chamberlain MD Primary Care Provide r Encounter Details Date Type Department Care Team (Latest Contact Info) Description 06/30/2020 Abstract [facility] CONVERSIONS Dental, Provider, DDS Social History [...] Description 11/11/2024 1:00 PM EST Clinical Support [facility] 230 [place] [address] 12/08/2024 8:00 AM EDT Office Visit [facility] ADULT DENTAL [address] [place] [address] Lily Howe [address] [place] [address] 01/24/2025 9:45 AM EDT Office Visit [facility] [address] [place] [address] Nuzhat Chamberlain MD 230 [place] [address] documented as of this encounter Visit Diagnoses Not on filedocumented in this encounter Care Teams Head Filter Press Tender Relationship Specialty Start Date End Date Nuzhat Chamberlain MD [address] [place] [address] PCP - General Family Medicine 10/31/20 documented as of this encounter
--- OUTSIDE RECORDS SUMMARY | 2024-11-02 15:13 | XMS_ITS | Encounter Summary ---
Author Organization [employer] Address [address] [facility] 7t h Floor [place] [phone] Care Team Providers Care Solvent Station Attendant Name Role Phone Nuzhat Chamberlain MD Primary Care Provide r Encounter Details Date Type Department Care Team (Latest Contact Info) Description 03/26/2022 Abstract [facility] CONVERSIONS Dental, Provider, DDS Social History [...] Description 11/11/2024 1:00 PM EST Clinical Support [facility] [address] [place] [address] 12/08/2024 8:00 AM EDT Office Visit [facility] ADULT DENTAL 230 [place] [address] Lily Howe [address] [place] [address] 01/24/2025 9:45 AM EDT Office Visit [facility] [address] [place] [address] Nuzhat Chamberlain MD 230 [place] [address] documented as of this encounter Visit Diagnoses Not on filedocumented in this encounter Care Teams Solvent Station Attendant Relationship Specialty Start Date End Date Nuzhat Chamberlain MD 230 [place] [address] PCP - General Family Medicine 10/31/20 documented as of this encounter
[2024-11-02 17:00] LABS: Microalbum/Creatinine Ratio Ur 8.9 ug/mg cr (<30)
== END 2024-11-02 14:12 | disposition home or self-care (01) ==
LOC: HO.HHCL 14:11
PROVIDERS: Visit Provider Internal Medicine
DX: E11.65 Type 2 diabetes mellitus with hyperglycemia (principal)
CPT/HCPCS: 82043; 82570

== ENCOUNTER 2025-07-27 10:07 | Outpatient (REF) | payer MEDICAID, SELFPAY ==
--- OUTSIDE RECORDS SUMMARY | 2025-07-27 09:15 | XMS_ITS | Encounter Summary ---
Author Organization [employer] Address [address] [facility] [address] [place] [address] Care Team Providers Care Financial Accountant Name Role Phone Nuzhat Chamberlain MD Primary Care Provide r Encounter Details Date Type Department Care Team (Latest Contact Info) Description 07/27/2025 9:15 AM EST Office Visit [facility] [address] [place], [place] [phone] Nuzhat Chamberlain MD [address] [place], [place] [phone] Type 2 diabetes mellitus with hyperglycemia, without [...] housing situation today? I have treasuremahin nathan 01/24/[address] you [...] 9:21 AM EST documented in this encounter Plan of Treatment Upcoming Encounters Date Type Department Care Team (Late st Contact Info) Description 12/05/2025 10:15 AM EDT Office Visit [facility] [address] [place] [address] Lily Howe [address] [place] [address] Scheduled Orders Name Type Priority Associated Diagnoses Orde r Schedule Lipid Panel, Standard Lab Routine Type 2 diabetes mellitus with hyperglycemia, without long-term current use of insulin (HCC) Expected: 07/27/2025 (Approximate), Expires: 07/27/2026 Albumin, Random Urine W/Creatinine Lab Routine Type 2 diabetes mellitus with hyperglycemia, without long-term current use of insulin (HCC) Expected: 07/27/2025 (Approximate), Expires: 07/27/2026 Comprehensive Metabolic Panel Lab Routine Type 2 diabetes mellitus with hyperglycemia, without long-term current use of insulin (HCC) Expected: 07/27/2025 (Approximate), Expires: 07/27/2026 TSH W/Reflex to FT4 Lab Routine Acquired hypothyroidism Expected: 07/27/2025 (Approximate), Expires: 07/27/2026 documented as of this encounter Goals Goal Patient Goal Type Associated Problems Recent Progress Patient-Stated? Author Help patients manage their type 2 diabetes Care Plan Help patients manage their type 2 diabetes No Elizabet Villalobos [place] Weekly blood pressure [...] Care Plan Patient has chronic kidney disease Nuzhat Kaufman MD Weekly blood pressure task Care Plan Weekly blood pressure task Nuzhat Kaufman MD Weekly blood pressure task Care Plan Weekly blood pressure task No Nuzhat Chamberlain MD documented as of this encounter Procedures Procedure Name Priority Date/Time Associated Diagnosis Comments POCT GLYCATED HEMOGLOBIN, TOTAL Routine 07/27/2025 9:23 AM EST Type 2 diabetes mellitus with hyperglycemia, without long-term current use of insulin (HCC) POCT GLUCOSE Routine 07/27/2025 9:23 AM EST Type 2 diabetes mellitus with hyperglycemia, without long-term current use of insulin (HCC) documented in this encounter Results * (ABNORMAL) POCT Hgb A1c (07/27/2025 9:23 [...] / Unknown 07/27/2025 9:23 AM EST Nuzhat Rojas MD POINT OF CARE TEST EN TER/EDIT ORDERABLES Final Result documented in this encounter Visit Diagnoses Diagnosis Type 2 [...] documented as of this encounter Care Teams Financial Accountant Relationship Specialty Start Date End Date Nuzhat Chamberlain MD [address] [place] [address] PCP - General Family Medicine 10/31/20 documented as of this encounter
--- OUTSIDE RECORDS SUMMARY | 2025-07-27 11:48 | XMS_ITS | Encounter Summary ---
Author Organization [employer] Address [address] [place] [address] Care Team Providers Care Hand Stemmer Name Role Phone Nuzhat Chamberlain MD Primary Care Provide r Reason for Visit * Reason Comments Med Refill Encounter Details Date Type Department Care Team ([facility] st Contact Info) Description 03/18/2025 Refill [facility] [address] [place], [place] [phone] Nuzhat Chamberlain MD [address] [place], [place] [phone] Candidiasis, intertrigo Social History Tobacco Use Types [...] Description 12/05/2025 10:15 AM EDT Office Visit [facility] [address] [place] [address] Shyam, Lily [address] [place] [address] documented as of this encounter Visit Diagnoses Diagnosis Candidiasis, intertrigo Candidiasis of skin and nails documented in this encounter Additional Health Concerns Assessment Noted Time PHQ-9 Depression Total Score: 0 04/27/20 24 9:14 AM EDT documented as of this encounter Care Teams Hand Stemmer Relationship Specialty Start Date End Date Nuzhat Chamberlain MD [address] [place] [address] PCP - General Family Medicine 10/31/20 documented as of this encounter
--- OUTSIDE RECORDS SUMMARY | 2025-07-27 11:48 | XMS_ITS | Encounter Summary ---
Author Organization [employer] Address [address] [facility] 7t [place] [address] Care Team Providers Care Boiler Repairman Name Role Phone Nuzhat Chamberlain MD Primary Care Provide r Reason for Visit * Reason Comments Med Refill Encounter Details Date Type Department Care Team ([facility] st Contact Info) Description 05/16/2025 Refill [facility] MEDICINE [address] [place], [place] [phone] Nuzhat Chamberlain MD [address] [place], [place] [phone] Type 2 diabetes mellitus with hyperglycemia, without long-term current use of insulin ([facility]) Social History Tobacco Use Types Packs/Day [...] your housing situation today? I have treasure sing 01/24/[address] you li [...] Description 12/05/2025 10:15 AM EDT Office Visit [facility] ADULT DENTAL [address] [place] [address] Shyam, Lily [address] [place] [address] documented as of this encounter Visit Diagnoses Diagnosis Type 2 diabetes mellitus with hyperglycemia, without long-term current use of insulin (HCC) documented in this encounter Additional Health Concerns Assessment Noted Time PHQ-9 Depression Total Score: 0 04/27/20 24 9:14 AM EDT documented as of this encounter Care Teams Boiler Repairman Relationship Specialty Start Date End Date Nuzhat Chamberlain MD [address] [place] [address] PCP - General Family Medicine 10/31/20 documented as of this encounter
--- OUTSIDE RECORDS SUMMARY | 2025-07-27 11:48 | XMS_ITS | Encounter Summary ---
Author Organization [employer] Address [address] [facility] [address] 7t [place] [address] Care Team Providers Care Folding Machine Setter Name Role Phone Nuzhat Chamberlain MD Primary Care Provide r Reason for Visit * Reason Comments Med Refill Encounter Details Date Type Department Care Team (Late st Contact Info) Description 06/28/2025 Refill [facility] MEDICINE [address] [place], [place] [phone] Nuzhat Chamberlain MD [address] [place], [place] [phone] Primary osteoarthritis of left knee Social History [...] Description 12/05/2025 10:15 AM EDT Office Visit [facility] ADULT DENTAL [address] [place] [address] Shyam, Lily [address] [place] [address] documented as of this encounter Visit Diagnoses Diagnosis Primary osteoarthritis of left knee documented in this encounter Additional Health Concerns Assessment Noted Time PHQ-9 Depression Total Score: 0 04/27/20 24 9:14 AM EDT documented as of this encounter Care Teams Folding Machine Setter Relationship Specialty Start Date End Date Nuzhat Chamberlain MD [address] [place] [address] PCP - General Family Medicine 10/31/20 documented as of this encounter
--- OUTSIDE RECORDS SUMMARY | 2025-07-27 11:48 | XMS_ITS | Encounter Summary ---
Author Organization [employer] Address [address] [facility] 7t [place] [address] Care Team Providers Care News Broadcaster Name Role Phone Nuzhat Chamberlain MD Primary Care Provide r Reason for Visit * Reason Onset Date Comments Chart Prep 07/26/2025 Encounter Details Date Type Department Care Team ([facility] st Contact Info) Description 07/26/2025 Telephone [facility] MEDICINE [address] [place], [place] [phone] Nuzhat Chamberlain MD [address] [place] [address] Chart Prep Social History Tobacco Use Types Packs/Day Years [...] encounter Miscellaneous Notes * Telephone Encounter - Elizabet Villalobos [place] - 07/26/2025 3:29 PM EST Chart Prep Labs: not applicable Images: not applicable Referrals: complete Patient kept appointment notes in chart. Vaccines due: Covid, Flu, PCV20, RSV, and Zoster Screenings: colonoscopy, eye exam, and HIV, Hep C, Lipid panel Overdue care gaps: A1c, Glucose, PHQ-9, and SURI-7 documented in this encounter Plan of Treatment Upcoming Encounters Date Type Department Care Team (Late st Contact Info) Description 12/05/2025 10:15 AM EDT Office Visit [facility] ADULT DENTAL [address] [place] [address] Shyam, Lily [address] [place] [address] documented as of this encounter Visit Diagnoses Not on filedocumented in this encounter Additional Health Concerns Assessment Noted Time PHQ-9 Depression Total Score: 0 04/27/20 24 9:14 AM EDT documented as of this encounter Care Teams News Broadcaster Relationship Specialty Start Date End Date Nuzhat Chamberlain MD 230 [place] [address] PCP - General Family Medicine 10/31/20 documented as of this encounter
--- OUTSIDE RECORDS SUMMARY | 2025-07-27 11:49 | XMS_ITS | Encounter Summary ---
Author Organization [employer] Address [address] [facility] [address] 7t [place] [address] Care Team Providers Care Braille Typist Name Role Phone Nuzhat Chamberlain MD Primary Care Provide r Encounter Details Date Type Department Care Team (Late st Contact Info) Description 10/08/2022 Orders Only [facility] 230 [place], [place] [phone] Fay Jean RN Social History Tobacco Use [...] Description 12/05/2025 10:15 AM EDT Office Visit [facility] ADULT DENTAL [address] [place], [place] [phone] Luis Howearis [address] [place], [place] [phone] documented as of this encounter Procedures Procedure Name Priority Date/Time Associated Diagnosis Comments BI MAMMOGRAM SCREENING TOMOSYNTHESIS BILATERAL Routine 10/18/2022 9:10 AM EST documented in this encounter Results * BI Mammogram Screening Tomosynthesis Bilateral (10/18/2022 9:10 AM EST) Anatomical Region Laterality Modality Breast Bilateral Mammography 10/18/2022 9:10 AM EST Narrative 10/21/2022 10:08 AM EST [facility] [address] [place] [address] Mammography Report Signed Patient: Tisha Brown MR#: [id number] : 1965 Acct:[id number] Age/Sex: 57 / F ADM Date: 10/18/22 Loc: HO.MAMMO Attending Dr: Nuzhat Rojas MD Ordering Physician: Nuzhat Chamberlain MD Results: 1Negative Date of Service: 10/18/22 Follow Up: 1 Year From Orig inal Mammogram Procedure(s): MM tomosynthesis screening BI Accession Number(s): [id number] cc: Nuzhat Chamberlain MD EXAMINATION: MM SCREENING [...] Rodrigez MD in OV> 10/21/22 1005 DD/ 9 TD/TT: Ethics Instructor: JUN Procedure Note Donotuseinterpreter, Image - 10/21/[address] [place], [place] [address] Mammography Report Signed Patient: Erickson Brown#: [id number] : 1965Acct:[id number] Age/Sex: 57 / FADM Date: 10/18/22 Loc: HO.MAMMO Attending Dr: Nuzhat Rojas MD Ordering Physician: Nuzhat Chamberlain MDResults: 1Negative Date of Service: 10/18/22Follow Up: 1 Year From Orig inal Mammogram Procedure(s): MM tomosynthesis screening BI Accession Number(s): [id number] cc: Nuzhat Chamberlain MD EXAMINATION: MM SCREENING [...] Rodrigez MD in OV> 10/21/22 1005 DD/ 9 TD/TT: Ethics Instructor: JUN [facility] External Provider IMG BI PROCEDURES Edited Result - Final documented in this encounter Visit Diagnoses Not on filedocumented in this encounter Care Teams Braille Typist Relationship Specialty Start Date End Date Nuzhat Chamberlain MD 230 [place] [address] PCP - General Family Medicine 10/31/20 documented as of this encounter
--- OUTSIDE RECORDS SUMMARY | 2025-07-27 11:49 | XMS_ITS | Encounter Summary ---
Author Organization [employer] Address [address] [facility] [address] 7[address] [place] [address] Care Team Providers Care Pattern Developer Name Role Phone Nuzhat Chamberlain MD Primary Care Provide r Reason for Visit * Reason Comments Med Refill Encounter Details Date Type Department Care Team ([facility] st Contact Info) Description 02/04/2025 Refill [facility] MEDICINE 230 [place], [place] [phone] Tahmina Coleman MD 230 [place], [place] [phone] Candidiasis, intertrigo Social History Tobacco Use Types [...] Description 12/05/2025 10:15 AM EDT Office Visit [facility] ADULT DENTAL [address] [place] [address] Shyam, Lily [address] [place] [address] documented as of this encounter Visit Diagnoses Diagnosis Candidiasis, intertrigo Candidiasis of skin and nails documented in this encounter Additional Health Concerns Assessment Noted Time PHQ-9 Depression Total Score: 0 04/27/20 24 9:14 AM EDT documented as of this encounter Care Teams Pattern Developer Relationship Specialty Start Date End Date Nuzhat Chamberlain MD [address] [place] [address] PCP - General Family Medicine 10/31/20 documented as of this encounter
--- OUTSIDE RECORDS SUMMARY | 2025-07-27 11:49 | XMS_ITS | Encounter Summary ---
Author Organization [employer] Address [address] [facility] [address] 7t [place] [address] Care Team Providers Care Risk Management Intern Name Role Phone Nuzhat Chamberlain MD Primary Care Provide r Reason for Visit * Reason Comments Med Refill Encounter Details Date Type Department Care Team (Late st Contact Info) Description 10/12/2024 Refill [facility] 230 [place], [place] [phone] Winnie Kaur NP 230 [place] [address] Hordeolum externum of right lower eyelid Social [...] Description 12/05/2025 10:15 AM EDT Office Visit [facility] ADULT DENTAL [address] [place] [address] Shyam, Lily [address] [place] [address] documented as of this encounter Visit Diagnoses Diagnosis Hordeolum externum of right lower eyelid documented in this encounter Additional Health Concerns Assessment Noted Time PHQ-9 Depression Total Score: 0 04/27/20 24 9:14 AM EDT documented as of this encounter Care Teams Risk Management Intern Relationship Specialty Start Date End Date Nuzhat Chamberlain MD [address] [place] [address] PCP - General Family Medicine 10/31/20 documented as of this encounter
--- OUTSIDE RECORDS SUMMARY | 2025-07-27 11:49 | XMS_ITS | Encounter Summary ---
Author Organization [employer] Address [address] [facility] 7t [place] [address] Care Team Providers Care Architectural Project Manager Name Role Phone Nuzhat Chamberlain MD Primary Care Provide r Reason for Visit * Reason Comments Med Refill Encounter Details Date Type Department Care Team (Late st Contact Info) Description 10/20/2023 Refill [facility] MEDICINE [address] [place], [place] [phone] Nuzhat Chamberlain MD 230 [place], [place] [phone] Type 2 diabetes mellitus with hyperglycemia, without long-term current use of insulin ([facility]); Elevated blood sugar Social History Tobacco Use [...] Description 12/05/2025 10:15 AM EDT Office Visit [facility] ADULT DENTAL [address] [place], [place] [phone] Shyam, Lily 230 [place] [address] documented as of this encounter Visit Diagnoses Diagnosis Type 2 diabetes mellitus with hyperglycemia, without long-term current use of insulin (HCC) Elevated blood sugar Other abnormal glucose documented in this encounter Care Teams Architectural Project Manager Relationship Specialty Start Date End Date Nuzhat Chamberlain MD [address] [place], [place] [phone] PCP - General Family Medicine 10/31/20 documented as of this encounter
--- OUTSIDE RECORDS SUMMARY | 2025-07-27 11:49 | XMS_ITS | Encounter Summary ---
Author Organization [employer] Address [address] [facility] [address] 7t [place] [address] Care Team Providers Care Wildlife Biology Technician Name Role Phone Nuzhat Chamberlain MD Primary Care Provide r Encounter Details Date Type Department Care Team (Latest Contact Info) Description 07/27/2025 Travel Social History Tobacco Use Types Packs/Day [...] Description 12/05/2025 10:15 AM EDT Office Visit [facility] ADULT DENTAL [address] [place], [place] [phone] Shyam, Lily [address] [place] [address] documented as of this encounter Goals Goal [...] Care Plan Patient has chronic kidney disease Elizabet Bruner MA Weekly blood pressure task Care Plan Weekly blood pressure task Elizabet Bruner MA Patient has chronic kidney disease Care Plan Patient has chronic kidney disease Elizabet Bruner MA Help patients manage their type 2 diabetes Care Plan Help patients manage their type 2 diabetes Nuzhat Kaufman MD Help patients manage their type 2 diabetes Care Plan Help patients manage their type 2 diabetes No Nuzhat Chamberlain MD Patient has chronic kidney disease Care Plan Patient has chronic kidney disease Nuzhat Kaufman MD Patient has chronic kidney disease Care Plan Patient has chronic kidney disease Nuzhat Kaufman MD Weekly blood pressure task Care Plan Weekly blood pressure task Nuzhat Kaufman MD Weekly blood pressure task Care Plan Weekly blood pressure task Nuzhat Kaufman MD documented as of this encounter Visit Diagnoses Not on filedocumented in this encounter Additional Health Concerns Active [...] documented as of this encounter Care Teams Wildlife Biology Technician Relationship Specialty Start Date End Date Nuzhat Chamberlain MD 230 [place] [address] PCP - General Family Medicine 10/31/20 documented as of this encounter
--- OUTSIDE RECORDS SUMMARY | 2025-07-27 11:49 | XMS_ITS | Encounter Summary ---
Author Organization [employer] Address [address] [facility] 7t [place] [address] Care Team Providers Care Nurse Emergency Name Role Phone Nuzhat Chamberlain MD Primary Care Provide r Encounter Details Date Type Department Care Team (Latest Contact Info) Description 06/30/2020 Abstract [facility] CONVERSIONS Dental, Provider, DDS Social History [...] Description 12/05/2025 10:15 AM EDT Office Visit [facility] ADULT DENTAL 230 [place] [address] Shyam, Lily [address] [place] [address] documented as of this encounter Visit Diagnoses Not on filedocumented in this encounter Care Teams Nurse Emergency Relationship Specialty Start Date End Date Nuzhat Chamberlain MD 230 [place] [address] PCP - General Family Medicine 10/31/20 documented as of this encounter
--- OUTSIDE RECORDS SUMMARY | 2025-07-27 11:49 | XMS_ITS | Encounter Summary ---
Author Organization [employer] Address [address] [facility] 7t [place] [address] Care Team Providers Care Medical Collector Name Role Phone Nuzhat Chamberlain MD Primary Care Provide r Encounter Details Date Type Department Care Team (Late st Contact Info) Description 02/26/2023 Orders Only [facility] MEDICINE [address] [place], [place] [phone] Tanna Jean LPN Social History Tobacco Use [...] Description 12/05/2025 10:15 AM EDT Office Visit [facility] ADULT DENTAL [address] [place], [place] [phone] Shyam Lily [address] [place] [address] documented as of this encounter Visit Diagnoses Not on filedocumented in this encounter Care Teams Medical Collector Relationship Specialty Start Date End Date Nuzhat Chamberlain MD 230 [place] [address] PCP - General Family Medicine 10/31/20 documented as of this encounter
--- OUTSIDE RECORDS SUMMARY | 2025-07-27 11:49 | XMS_ITS | Encounter Summary ---
Author Organization [employer] Address 75 [facility] 7t [place] [address] Care Team Providers Care Agent Spa Desk Name Role Phone Nuzhat Chamberlain MD Primary Care Provide r Reason for Visit * Reason Comments Med Refill Encounter Details Date Type Department Care Team (Late st Contact Info) Description 10/06/2023 Refill [facility] ADULT DENTAL [address] [place], [place] [phone] Ashutosh Thurman DDS [address] [place], [place] [phone] Necrosis of dental pulp Social History Tobacco [...] Description 12/05/2025 10:15 AM EDT Office Visit [facility] ADULT DENTAL [address] [place] [address] Luis Howearis [address] [place] [address] documented as of this encounter Visit Diagnoses Diagnosis Necrosis of dental pulp documented in this encounter Care Teams Agent Spa Desk Relationship Specialty Start Date End Date Nuzhat Chamberlain MD 230 [place] [address] PCP - General Family Medicine 10/31/20 documented as of this encounter
--- OUTSIDE RECORDS SUMMARY | 2025-07-27 11:49 | XMS_ITS | Encounter Summary ---
Author Organization [employer] Address [address] [facility] 7t [place] [address] Care Team Providers Care Lead Inspector Name Role Phone Nuzhat Chamberlain MD Primary Care Provide r Encounter Details Date Type Department Care Team (Latest Contact Info) Description 12/23/2018 Abstract [facility] CONVERSIONS Dental, Provider, DDS Social [...] Description 12/05/2025 10:15 AM EDT Office Visit [facility] ADULT DENTAL 230 [place] [address] Shyam, Lily [address] [place] [address] documented as of this encounter Visit Diagnoses Not on filedocumented in this encounter Care Teams Lead Inspector Relationship Specialty Start Date End Date Nuzhat Chamberlain MD 230 [place] [address] PCP - General Family Medicine 10/31/20 documented as of this encounter
--- OUTSIDE RECORDS SUMMARY | 2025-07-27 11:49 | XMS_ITS | Encounter Summary ---
Author Organization [employer] Address [address] [facility] [address] 7t [place] [address] Care Team Providers Care Cfd Engineer Name Role Phone Nuzhat Chamberlain MD Primary Care Provide r Reason for Visit * Reason Comments Med Refill Encounter Details Date Type Department Care Team ([facility] st Contact Info) Description 01/29/[address] [facility] MEDICINE 230 [place], [place] [phone] Tahmina Coleman MD 230 [place], [place] [phone] Candidiasis, intertrigo Social History Tobacco Use Types [...] 10:15 AM EDT Office Visit [facility] ADULT DENTAL [address] [place] [address] Shyam, Lily [address] [place] [address] documented as of this encounter Visit Diagnoses Diagnosis Candidiasis, intertrigo Candidiasis of skin and nails documented in this encounter Additional Health Concerns Assessment Noted Time PHQ-9 Depression Total Score: 0 04/27/20 24 9:14 AM EDT documented as of this encounter Care Teams Cfd Engineer Relationship Specialty Start Date End Date Nuzhat Chamberlain MD [address] [place] [address] PCP - General Family Medicine 10/31/20 documented as of this encounter
--- OUTSIDE RECORDS SUMMARY | 2025-07-27 11:49 | XMS_ITS | Encounter Summary ---
Author Organization [employer] Address [address] [facility] [address] 7t [place] [address] Care Team Providers Care Electric Powerline Examiner Name Role Phone Nuzhat Chamberlain MD Primary Care Provide r Reason for Visit * Reason Comments Med Refill Encounter Details Date Type Department Care Team ([facility] st Contact Info) Description 10/20/[address] [facility] MEDICINE 230 [place], [place] [phone] Nuzhat Chamberlain MD [address] [place], [place] [phone] Candidiasis, intertrigo Social History Tobacco Use Types [...] 10:15 AM EDT Office Visit [facility] ADULT DENTAL [address] [place] [address] Shyam, Lily [address] [place] [address] documented as of this encounter Visit Diagnoses Diagnosis Candidiasis, intertrigo Candidiasis of skin and nails documented in this encounter Additional Health Concerns Assessment Noted Time PHQ-9 Depression Total Score: 0 04/27/20 24 9:14 AM EDT documented as of this encounter Care Teams Electric Powerline Examiner Relationship Specialty Start Date End Date Nuzhat Chamberlain MD [address] [place] [address] PCP - General Family Medicine 10/31/20 documented as of this encounter
--- OUTSIDE RECORDS SUMMARY | 2025-07-27 11:49 | XMS_ITS | Encounter Summary ---
Author Organization [employer] Address [address] [facility] 7t [place] [address] Care Team Providers Care Driller And Reamer Name Role Phone Nuzhat Chamberlain MD Primary Care Provide r Encounter Details Date Type Department Care Team (Latest Contact Info) Description 03/26/2022 Abstract [facility] CONVERSIONS Dental, Provider, DDS Social [...] Description 12/05/2025 10:15 AM EDT Office Visit [facility] ADULT DENTAL [address] [place] [address] Shyam, Lily [address] [place] [address] documented as of this encounter Visit Diagnoses Not on filedocumented in this encounter Care Teams Driller And Reamer Relationship Specialty Start Date End Date Nuzhat Chamberlain MD 230 [place] [address] PCP - General Family Medicine 10/31/20 documented as of this encounter
--- OUTSIDE RECORDS SUMMARY | 2025-07-27 11:49 | XMS_ITS | Clinical Summary ---
Author Organization [facility] Address [address] [place] [address] Phone Care Team Providers Care Ops Manager Name Role Phone Nuzhat Chamberlain MD Primary Care Provide r Allergies No known active allergies Encounters Date Type Department Care Team Description 05/03/2025 1:30 PM EDT Office Visit [facility] [address] [phone] Graham Young DPM Tinea pedis of both feet (Primary Dx); Acquired hallux valgus of left foot; Acquired hallux valgus of right foot; Dermatophytosis of nail; Pain in toe of right foot; Diabetic mononeuropathy simplex (CMS/HCC V24, CMS/HCC V28); Hammer toe of left foot; Acquired hammer toe of right foot; Pain in toe of left foot from Last 3 Months Social History Tobacco Use Types Packs/Day Years Used Date Smoking Tobacco: Never Assessed Comments Unknown Sex and Gender Information Value Date Recorded Sex Assigned at Not on file Legal Sex Female 11:38 PM EST Gender Identity Not on file Sexual Orientation Not on file Plan of Treatment Upcoming Encounters Date Type Department Care Team (Late st Contact Info) Description 08/03/2025 1:15 PM EST Office Visit [facility]opedic [facility] [address] [phone] Graham Young DPM [address] [phone] Health Maintenance Due Date Last Done Comments Breast Cancer Screening 1965 Colorectal Cancer Screening: Colonoscopy 1965 Diabetes: Annual GFR (Glomerular Filtration Rate) 1963 Diabetes: Annual Foot Exam 1973 Diabetes: Annual Retina Eye Exam 1973 Pneumococcal Vaccine: 50+ Years (2 of 2 - PCV) 01/01/2007 01/01/2006 RSV Immunization Adult Patients (1 - Risk 50-74 years 1-dose series) 2013 Zoster Vaccines (1 of 2) 2013 Depression Screening 09/15/2024 Cervical Cancer Screening: Pap Smear 10/11/2024 10/11/2021 Diabetes: Annual Urine Albumin-Creatinine Ratio (uACR) 01/27/2025 HIV Screening 01/27/2025 Hepatitis C Screening 01/27/2025 Social Influencers of Health Screening 01/27/2025 Hypertension/CHF/CAD Annual BMP Blood Test 03/03/2025 COVID-19 Vaccine ( - season) 2025 Influenza Vaccine (#1) 2025 , 07/12/2019, 07/28/2018, Additional history exists Diabetes: Blood Sugar Control Test (HGBA1C) 10/26/2025 04/25/2025, 01/24/2025 Cholesterol Screening (Lipid Panel) 07/29/2029 07/29/2024 DTaP,Tdap,and Td Vaccines (3 - Td or Tdap) 04/24/2030 [...] on patient's age to complete this topic MMR Vaccines Aged Out No longer eligi ble based on patient's age to complete this topic Meningococcal ACWY Vaccine Aged Out N o longer eligible based on patient's age to complete this topic Meningococcal B Vaccine Aged Out No l onger eligible based on patient's age to complete this topic RSV Immunization Patients Under 20 months Aged Out No longer eligible based on patient's age to complete this topic Varicella Vaccines Aged Out No longer eligible based on patient's age to complete this topic Insurance MEDICAID - [place] Care Teams Ops Manager Relationship Specialty Start Date End Date Nuzhat Chamberlain MD [address] [place] [phone] PCP - General Internal Medicine 01/27/25
--- OUTSIDE RECORDS SUMMARY | 2025-07-27 11:49 | XMS_ITS | Encounter Summary ---
Author Organization [employer] Address [address] [place] [address] Care Team Providers Care Travel Sales Consultant Name Role Phone Nuzhat Chamberlain MD Primary Care Provide r Reason for Visit * Reason Comments Med Refill Encounter Details Date Type Department Care Team ([facility] st Contact Info) Description 01/04/2025 Refill [facility] [address], [place] [phone] Nuzhat Chamberlain MD [address] [place] [address] Social History Tobacco Use Types Packs/Day Years [...] Description 12/05/2025 10:15 AM EDT Office Visit [facility] [address] [place] [address] Shyam, Lily [address] [place] [address] documented as of this encounter Visit Diagnoses Not on filedocumented in this encounter Additional Health Concerns Assessment Noted Time PHQ-9 Depression Total Score: 0 04/27/20 24 9:14 AM EDT documented as of this encounter Care Teams Travel Sales Consultant Relationship Specialty Start Date End Date Nuzhat Chamberlain MD [address] [place] [address] PCP - General Family Medicine 10/31/20 documented as of this encounter
--- OUTSIDE RECORDS SUMMARY | 2025-07-27 11:49 | XMS_ITS | Clinical Summary ---
Author Organization [employer] Address [address] [facility] [address] [place] [address] Care Team Providers Care Door Maker Name Role Phone Nuzhat Chamberlain MD Primary [...] hyperglycemia, without long-term current use of insulin ([facility]) Take 1 capsule (25 mcg) by mouth in the morning. 90 capsule 2022 Active Blood Glucose Monitoring Suppl (FreeStyle Lite) w/Device kitIndications:Type 2 diabetes mellitus with hyperglycemia, without long-term current use of insulin ([facility]) 1 kit 2 times daily. 1 kit 2023 Active Propylene Glycol (Systane Complete) 0.6 % solutionIndications:Ca taract of left eye, unspecified cataract type Administer 2 drops into affected eye(s) 3 times daily. 10 mL 2 2023 Active colestipol (Colestid) 1 g tabletIndications:Hype rcholesterolemia Take 2 tabs orally twice a day 120 tablet 11 2023 Active Blood Pressure kit Use to check blood pressure as directed 1 kit 2024 Active Aspirin Adult Low Strength 81 MG EC tabletIndications:Type 2 diabetes mellitus with hyperglycemia, without long-term current use of insulin ([facility]) Take 1 tablet (81 mg) by mouth in the morning. 90 tablet 1 2024 Active metFORMIN (Glucophage) 1000 MG tabletIndications:Type 2 diabetes mellitus with hyperglycemia, without long-term current use of insulin ([facility]) TAKE 1 TABLET BY MOUTH TWICE DAILY IN THE MORNING AND IN THE EVENING WITH MEALS 180 tablet 1 2024 Active Alcohol Swabs (Alcohol Prep) 70 % pads USE DIRECTED 2 OR 3 TIMES DAILY 100 each 11 2024 Active omega-3 (Fish Oil) 1000 MG capsuleIndications:Kathe day hypercholesterolemia Take 1 capsule (1,000 mg) by mouth 2 times daily. 180 capsule 1 2024 Active cholecalciferol (D3 Super Strength) 50 MCG (2000 UT) capsuleIndications:Vit diaz D deficiency Take 1 capsule (50 mcg) by mouth Once per day. 90 capsule 3 2024 Active atorvastatin (Lipitor) 40 MG tabletIndications:Type 2 diabetes mellitus with hyperglycemia, without long-term current use of insulin ([facility]) TAKE 1 TABLET BY MOUTH DAILY IN THE MORNING 90 tablet 3 2024 Active glipiZIDE XL (Glucotrol XL) 2.5 MG 24 hr tabletIndications:Type 2 diabetes mellitus with hyperglycemia, without long-term current use of insulin ([facility]) TAKE 2 TABLETS BY MOUTH EVERY MORNING WITH BREAKFAST AND 1 TABLET BY MOUTH EVERY EVENING WITH DINNER. DO NOT BREAK, CRUSH, DISSOLVE OR CHEW 270 tablet 3 2024 Active levothyroxine (Synthroid, Levoxyl) 50 MCG tabletIndications:Acqu ired hypothyroidism Take 1 tablet (50 mcg) by mouth before breakfast. 90 tablet 3 2024 Active glucose blood (FREESTYLE LITE) test stripIndications:Type 2 diabetes mellitus with hyperglycemia ([facility]) USE DIRECTED TO TEST BLOOD SUGAR TWICE DAILY 100 strip 11 2024 Active TRUEplus Lancets 33G miscIndications:Type 2 diabetes mellitus with hyperglycemia, without long-term current use of insulin ([facility]) USE TO TEST BLOOD SUGAR TWICE DAILY 100 each 1 2024 Active hydroCHLOROthiazide (HYDRODiuril) 25 MG tabletIndications:Prim mekhi hypertension Take 1 tablet (25 mg) by mouth Once per day. 30 tablet 11 06/28 Active ciclopirox (Penlac) 8 % solutionIndications:On ychomycosis Apply topically at bedtime. 6.6 mL 3 2024 Active clotrimazole (Lotrimin) 1 % creamIndications:Willow diasis, intertrigo APPLY TOPICALLY TO THE AFFECTED AREA(S) AND SURROUNDING AREA(S) TWICE DAILY IN THE MORNING AND IN THE EVENING DIRECTED 30 g 2 2024 Active Dulaglutide (Trulicity) 4.5 MG/0.5ML solution auto-injectorIndicatio ns:Type 2 diabetes mellitus with hyperglycemia, without long-term current use of insulin ([facility]) Inject 4.5 mg under the skin 1 (one) time per week. 2 mL 3 2024 Active acetaminophen (Tylenol Extra Strength) 500 MG tabletIndications:Prim mekhi osteoarthritis of left knee Take 2 tablets (1,000 mg) by mouth every 8 (eight) hours if needed for moderate pain for up to 15 days. 30 tablet 2 07/27/20 25 11:00 AM EST 08/11 Active lidocaine (Lidoderm) 5 % patchIndications:Prima ry osteoarthritis of left knee Apply 2 patches topically Once per day. Remove & discard patch within 12 hours or as directed by . 60 patch 1 07/27/20 25 11:00 AM EST 2024 Active hydroCHLOROthiazide (HYDRODiuril) 25 MG tabletIndications:Prim mekhi hypertension Take 1 tablet (25 mg) by mouth Once per day. 30 tablet 11 06/28 Discontinued( Reorder (will not trigger notification to Pharmacy)) ciclopirox (Penlac) 8 % solutionIndications:On ychomycosis Apply topically at bedtime. 6.6 mL 3 06/30 Discontinued( Reorder (will not trigger notification to Pharmacy)) TRUEplus Lancets 33G miscIndications:Type 2 diabetes mellitus with hyperglycemia, without long-term current use of insulin (HCC) USE TO TEST BLOOD SUGAR TWICE DAILY 100 each 1 06/28 Discontinued( Reorder (will not trigger notification to Pharmacy)) clotrimazole (Lotrimin) 1 % creamIndications:Willow diasis, intertrigo APPLY TOPICALLY TO THE AFFECTED AREA(S) AND SURROUNDING AREA(S) TWICE DAILY IN THE MORNING AND IN THE EVENING DIRECTED 30 g 2 06/30 Discontinued( Reorder (will not trigger notification to Pharmacy)) lidocaine (Lidoderm) 5 % patchIndications:Prima ry osteoarthritis of left knee Apply 2 patches topically Once per day. Remove & discard patch within 12 hours or as directed by 60 patch 1 06/28 Discontinued( Reorder (will not trigger notification to Pharmacy)) Dulaglutide (Trulicity) 3 MG/0.5ML solution auto-injectorIndicatio ns:Type 2 diabetes mellitus with hyperglycemia, without long-term current use of insulin (HCC) Inject 3 mg under the skin 1 (one) time per week. 2 mL 2 07/27 Discontinued lidocaine (Lidoderm) 5 % patchIndications:Prima ry osteoarthritis of left knee Apply 2 patches topically Once per day. Remove & discard patch within 12 hours or as directed by . 60 patch 1 07/27 Discontinued( Reorder (will not trigger notification to Pharmacy)) Active Problems Problem Noted Date Diagnosed Date Hyperlipidemia 07/26/2025 Lab test positive for detection of COVID-19 viru s 07/26/2025 Precordial chest pain 07/26/2025 Type 2 diabetes mellitus with unspecified compli cations 07/26/2025 Onycholysis 01/24/2025 Assessment & Plan (01/24/2025 1:21 PM EDT): I will refer patient to podiatry White coat syndrome with hypertension 01/24/2025 Assessment & Plan (01/24/2025 1:20 PM EDT): Will continue with same medication regimen and low-sodium diet Tooth sensitivity 06/09/2024 Primary osteoarthritis of left knee 06/01/2024 Assessment & Plan (04/25/2025 11:23 AM EDT): I will prescribe for patient lidocaine patches, she does note that this helps her I will prescribe for her a knee brace and cane (quad) Acute bacterial conjunctivitis of right eye 04/15 [...] 11/28/2022 Hypertensive disorder 11/28/2022 Assessment & Plan (04/25/2025 11:22 AM EDT): - Aerobic exercise to reduce [...] consulting health care provider Assessment & Plan (10/28/2024 10:12 AM EST): [...] use of insulin 10/12/2015 Assessment & Plan (04/25/2025 11:23 AM EDT): Diabetes is: not controlled - Lab Results Component Value Date HGBA1C 8.0 (A) 04/25/2025 HGBA1C 7.7 (A) 01/24/2025 HGBA1C 7.8 (A) 10/28/2024 - Lab Results Component Value Date MICROALBUR 24.0 11/02/2024 CREATININE 0.92 07/29/2024 -Changes: Counseling about healthy diet done we will continue with Andres for now then I let her know it is negative that I will switch her to Osman - Diabetic eye exam: She has an appointment pending - Diabetic foot exam: She has been followed by podiatry - Continue lifestyle modifications - Continue current medications - Follow up: 3 months Assessment & Plan (01/24/2025 1:21 PM EDT): Diabetes is: not controlled but improved - Lab Results Component Value Date HGBA1C 7.7 (A) 01/24/2025 HGBA1C 7.8 (A) 10/28/2024 HGBA1C 8.2 (A) 07/29/2024 - Lab Results Component Value Date MICROALBUR 24.0 11/02/2024 CREATININE 0.92 07/29/2024 -Changes: None - Diabetic eye exam: Up-to-date - Diabetic foot exam: Referral done today - Continue lifestyle modifications - Continue current medications - Follow up: 3 months Assessment & Plan (10/28/2024 10:12 AM EST): [...] - Continue lifestyle modifications -today I added trulicity to her regimen Assessment & Plan (01/08/2023 [...] Encounters Date Type Department Care Team Description 07/27/2025 9:15 AM EST Office Visit [facility] [address] [place] [phone] Nuzhat Chamberlain MD Type 2 diabetes mellitus with hyperglycemia, without long-term current use of insulin ([facility]); Primary hypertension; Acquired hypothyroidism; Primary osteoarthritis of left knee 07/27/2025 Travel 07/26/[address] [facility] [address] [place] [phone] Nuzhat Chamberlain MD Chart Prep 07/20/2025 Patient Outreach [address] [address] Nuzhat Chamberlain MD Pre-visit Planning (Pre visit planning unable to LVM ) 07/04/[address] [facility] [address] [place] [phone] Jeffery Brown Recovery Supports 06/30/[address] [facility] [address] [place] [phone] Nuzhat Chamberlain MD Onychomycosis; Candidiasis, intertrigo 06/28/[address] [facility] [address] [place] [phone] Jeffery Brown RC Recovery Supports 06/28/[address] [facility] [address] [place] [phone] Nuzhat Chamberlain MD Primary osteoarthritis of left knee; Type 2 diabetes mellitus with hyperglycemia, without long-term current use of insulin ([facility]); Primary hypertension 06/28/[address] [facility] [address] [place] [phone] Nuzhat Chamberlain MD Primary osteoarthritis of left knee 06/06/2025 2:00 PM EDT Office Visit [facility] [address] [place] [phone] Lily Howe Localized gingival recession (Primary Dx); Gingival bleeding; Dental calculus 05/23/[address] [facility] [address] [place] [phone] Nuzhat Chamberlain MD Type 2 diabetes mellitus with hyperglycemia ([facility]/HCC) 05/17/[address] [facility] [address] [place] [phone] Nuzhat Chamberlain MD Type 2 diabetes mellitus with hyperglycemia, without long-term current use of insulin ([facility]) 05/16/[address] [facility] [address] [place] [address] Nuzhat Chamberlain MD Type 2 diabetes mellitus with hyperglycemia, without long-term current use of insulin ([facility]) 04/26/[address] [facility] [address], [place] [phone] Nuzhat Chamberlain MD DME L knee brace/Cane quad from Last 3 Months Immunizations Immunization Administration Dates Next Due Hep A, Adult [...] Mass Index 23.96 07/27/2025 9:21 AM EST Plan of Treatment Upcoming Encounters Date Type Department Care Team (Late st Contact Info) Description 12/05/2025 10:15 AM EDT Office Visit [facility] [address] [place] [phone] Luis Howearis [address] [place] [address] Health Maintenance Due Date Last Done Comments CT Colonography 1965 FIT DNA/Cologuard 1965 FIT 1965 FOBT 1965 HIV Screening 1965 Sigmoidoscopy 1965 HIB Vaccines (1 of 1 - Risk 1-dose series) 11/08/1964 Meningococcal Vaccine (1 - Risk 2-dose series) 1965 Eye Exam 1973 Meningococcal B Vaccine (1 of 4 - Increased Risk) 1973 Hepatitis C Screening 1981 Pneumococcal Vaccine: 50+ Years (2 of 2 - PCV) 01/01/2007 01/01/2006 RSV Patients and Patients Aged 60 years or older (1 - Risk 50-74 years 1-dose series) 2013 Zoster Vaccines (1 of 2) 2013 Colonoscopy 07/25/2024 Colorectal Cancer Screening 07/25/2024 Depression Screening 04/27/2025 04/27/2024, 04/27/20 COVID-19 Vaccine ( - season) 2025 Influenza Vaccine (#1) 2025 , 07/12/2019, 07/28/2018, Additional history exists Dental X-Ray: Bitewings 05/26/2025 05/25/2024, 03/31 Lipid Panel 07/29/2025 07/29/2024, 04/0 12/2023, 12/02/2022, Additional history exists Diabetes: Hemoglobin A1C 10/27/2025 025, 04/25/2025, 01/24/2025, Additional history exists Mammogram 10/29/2025 10/29/2024, 02/0 05/2024, 10/18/2022, Additional history exists Diabetes: Urine Protein Screening 11/02/2025 11/02/2024, 12/02/2022, 02/19/2022, Additional history exists Dental Oral Exam 12/05/2025 06/06/2025, 06/2024, 10/09/2023, Additional history exists Dental Prophylaxis 12/05/2025 06/06/2025, 0 12/08/2024, 06/09/2024, Additional history exists Alcohol/Substance Use Screening 01/24/2026 01/24/2025 SDOH Screening 01/24/2026 01/24/2025 Disability Screening 04/25/2026 04/25/2025 Diabetes: Foot Exam 05/03/2026 05/03/2025 Tobacco Screening 07/27/2026 07/27/2025 Cervical Cancer Screening 10/11/2026 HPV/Cotest 10/11/2026 10/11/2021, 10/08/2016 Pap Smear 10/11/2026 10/11/2021, 10/11/2021 Dental X-Ray: Full Mouth 06/07/2028 06/06/2025, 03/15 DTaP/Tdap/Td Vaccines (3 - Td or Tdap) 04/24/2030 04/24/2020, 03/27/2010 Hepatitis A Vaccines Completed 02/24/2015, 04/13/20 08 Hepatitis B Vaccines Completed 06/05/2017, 03/27/2015, 02/24/2015 HPV Vaccines Aged Out No longer eligi [...] on patient's age to complete this topic Goals Goal Patient Goal Type Associated Problems [...] their type 2 diabetes Nuzhat Kaufman MD Patient has chronic kidney disease Care Plan Patient has chronic kidney disease No Nuzhat Chamberlain MD Patient has chronic kidney disease Care Plan Patient has chronic kidney disease No Nuzhat Chamberlain MD Weekly blood pressure task Care Plan Weekly blood pressure task No Nuzhat Chamberlain MD Weekly blood pressure task Care Plan Weekly blood pressure task No Nuzhat Chamberlain MD Procedures Procedure Name Priority Date/Time Associated Diagnosis Comments POCT GLYCATED HEMOGLOBIN, TOTAL Routine 07/27/2025 9:23 AM EST Type 2 diabetes mellitus with hyperglycemia, without long-term current use of insulin (HCC) POCT GLUCOSE Routine 07/27/2025 9:23 AM EST Type 2 diabetes mellitus with hyperglycemia, without long-term current use of insulin (HCC) PERIODIC ORAL EVALUATION - ESTABLISHED PATIENT Routine 06/06/2025 2:00 PM EDT PANORAMIC RADIOGRAPHIC IMAGE Routine 06/06/2025 2:00 PM EDT Localized gingival recession Gingival bleeding Dental calculus CASE PRESENTATION, DETAILED AND EXTENSIVE TREATMENT PLANNING Routine 06/06/2025 2:00 PM EDT Localized gingival recession Gingival bleeding Dental calculus ORAL HYGIENE INSTRUCTIONS Routine 06/06/2025 2:00 PM EDT Localized gingival recession Gingival bleeding Dental calculus PROPHYLAXIS - ADULT Routine 06/06/2025 2 :00 PM EDT Gingival bleeding Dental calculus AMB REFERRAL TO PODIATRY Routine 05/03/2025 Type 2 diabetes mellitus with hyperglycemia, without long-term current use of insulin (CMS/HCC) Onycholysis ALBUMIN, RANDOM URINE W/CREATININE Routine 11/02/2024 1:30 PM EST Type 2 diabetes mellitus with hyperglycemia, without long-term current use of insulin (CMS/HCC) BI MAMMOGRAM SCREENING TOMOSYNTHESIS BILATERAL Routine 10/29/2024 8:15 AM EST LIPID PANEL, STANDARD Routine 07/29/2024 11:40 AM EST Type 2 diabetes mellitus with hyperglycemia, without long-term current use of insulin (CMS/HCC) BITEWINGS - 4 RADIOGRAPHIC IMAGES Routine 05/25/2024 8:00 AM EDT Encounter for dental examination THINPREP IMAGING PAP AND HPV MRNA E6/E7 WITH REFLEX TO HPV 16,18/45 Routine 10/11/2021 10:50 AM EST PAP SMEAR Routine 10/11/2021 12:00 AM EST from Last 3 Months or Most Recently Relevant to Health Maintenance Results * (ABNORMAL) POCT Hgb A1c (07/27/2025 9:23 AM EST) Hemoglobin A1C 8.3(A) 4.0 - 5.7 % QC Media Lot # [id number] Lot# Expiration Date [id number] Blood 07/27/2025 9:23 AM EST Result Gisela Rojas MD POINT OF CARE TEST EN TER/EDIT ORDERABLES Final Result * POCT Glucose (07/27/2025 9:23 AM EST) Glucose Blood, POC [id number] 60 - 200 mg/dL QC Media Lot # [id number] Lot# Expiration Date 7726 Blood Capillary blood specimen / Unknown 07/27/2025 9:23 AM EST Result Gisela Rojas MD POINT OF CARE TEST EN TER/EDIT ORDERABLES Final Result * Referral to Podiatry (05/03/2025) Result Gisela Rojas MD OUTPATIENT REFERRAL O RDERABLES Final Result * Albumin, Random Urine W/Creatinine (11/02/2024 1:30 PM EST) Creatinine, Urine 269.50 mg/dL [facility] Microalbumin Urine 24.0 mg/L [facility] Microalbum Creatinine Ratio Ur 8.9 <30 ug/mg cr [facility] Comment:Albumin/Creatinine R atio Reference Ranges: Normal: < 30 ug/mg creatinine Microalbuminuria: 30 - 300 ug/mg creatinineClinical Albuminuria: > 300 ug/mg creatinine Urine (Urine, Random) 11/02/2024 1:30 PM EST 11/02/2024 4:03 PM EST us Nuzhat Rojas MD LAB URINE ORDERABLES Final Result [facility] [address] [place] [address] [phone] * BI Mammogram Screening Tomosynthesis Bilateral (10/29/2024 8:15 AM EST) Anatomical Region Laterality Modality Breast Bilateral Mammography 10/29/2024 8:15 AM EST Narrative 11/06/2024 10:15 AM EST [facility] [address] [place] [address] Mammography Report Signed Patient: Tisha Brown MR#: [id number] : 1965 Acct:[id number] Age/Sex: 59 / F ADM Date: 10/29/24 Loc: HO.MAMMO Attending Dr: Nuzhat Rojas MD Ordering Physician: Nuzhat Chamberlain MD Results: 1Negative Date of Service: 10/29/24 Follow Up: 1 Year From [facility] ina Mammogram Procedure(s): MM tomosynthesis screening BI Accession Number(s): [id number] cc: Nuzhat Chamberlain MD EXAMINATION: MM SCREENING DIGITAL BREAST TOMOSYNTHESIS, BILATERAL CLINICAL INFORMATION: Screening. Asymptomatic. COMPARISON: Mammography: Comparison is made with available priors TECHNIQUE: Digital breast mammography with tomosynthesis is performed in both the craniocaudal and mediolateral oblique views along with computer-aided detection (CAD). FINDINGS: The breasts are heterogeneously dense, which [...] target due date for their next mammogram. Electronically signed by: Lynda Fairchild DO 11/06/2024 10:12 AM EST Dictated By: Lynda Fairchild DO Signed By: <Electronically signed by Lynda Fairchild DO in OV> 11/06/24 1012 DD/ 0815 TD/TT: 10/29/24 0827 Lead Worker Of Housekeeping And Laundry: Procedure Note Donotuseinterpreter, Image - 11/06/2024 [place] [facility] [address] [place] [address] Mammography Report Signed Patient: Tisha BrownMR#: [id number] : 1965Acct:[id number] Age/Sex: 59 / FADM Date: 10/29/24 Loc: HO.MAMMO Attending Dr: Nuzhat Rojas MD Ordering Physician: Nuzhat Chamberlain MDResults: 1Negative Date of Service: 10/29/24Follow Up: 1 Year From Orig inal Mammogram Procedure(s): MM tomosynthesis screening BI Accession Number(s): [id number] cc: Nuzhat Chamberlain MD EXAMINATION: MM SCREENING DIGITAL BREAST TOMOSYNTHESIS, BILATERAL CLINICAL INFORMATION: Screening. Asymptomatic. COMPARISON: Mammography: Comparison is made with available priors TECHNIQUE: Digital breast mammography with tomosynthesis is performed in both the craniocaudal and mediolateral oblique views along with computer-aided detection (CAD). FINDINGS: The breasts are heterogeneously dense, which [...] target due date for their next mammogram. Electronically signed by: Lynda Fairchild DO 11/06/2024 10:12 AM EST Dictated By: Lynda Fairchild DO Signed By: <Electronically signed by Lynda Fairchild DO in OV> 11/06/24 1012 DD/ 4 TD/TT: 10/29/24826 Lead Worker Of Housekeeping And Laundry: us Nuzhat Rojas MD IMG BI PROCEDURES Nimesh justin Result - Final * (ABNORMAL) Lipid Panel, Standard (07/29/2024 11:40 AM EST) Triglycerides 172(H) <150 mg/dL [facility] Comment:Desirable Triglyceri de: less than 150 mg/dLBorderline High Triglyceride 150-199 mg/dLHigh Triglyceride: 200-499 mg/dLVery High Triglyceride: greater than or equal to 5OO mg/dL Cholesterol 143 <200 mg/dL [facility] Comment:Desirable Cholestero l: less than 200 mg/dLBorderline High Cholesterol: 200-239 mg/dLHigh Cholesterol: greater than 239 mg/dL LDL Cholesterol Calculated 60 <100 mg/dL [facility] Comment:Desirable LDL: less than 100 mg/dLNear Optimal/Above Optimal LDL: 110- 129 mg/dLBorderline High LDL: 130-159 mg/dLHigh LDL: 160-189 mg/dLVery High LDL: greater than or equal to 190 mg/dL HDL Cholesterol 49 >40 mg/dL [facility] Comment:Desirable HDL: great er than 40 mg/dL Note: This HDL assay may give artificially low results in patients with liver disease. Blood Venous blood specimen / Unknown 07/29/2024 11:40 AM EST 07/29/2024 1:26 PM EST us Nuzhat Rojas MD LAB BLOOD ORDERABLES Final Result [facility] [address] [place] [address] [phone] * THINPREP TIS PAP AND HPV mRNA E6/E7 WITH REFLEX TO HPV 16,18/45 (10/11/2021 10:50 AM EST) Clinical Information: NIL/NEG [facility] COMMENT SEE COMMENT [facility] Comment: EXPLANATORY NOTE: The Pap is a screening test for cervical cancer. It is not a diagnostic test and is subject to false negative and false positive results. It is most reliable when a satisfactory sample, regularly obtained, is submitted with relevant clinical findings and history, and when the Pap result is evaluated along with historic and current clinical information. COMMENT: This Pap test has been evaluated with computer assisted technology. [facility] Surveillance Specialist: SEE COMMENT [facility] Comment: CMG, CT(ASCP) CT screening location: [place] [address] HPV nRNA E6/E7 Not Detected Not Detected [facility] Comment: Methodology: [employer]-Mediated Amplification This assay detects E6/E7 viral messenger RNA (mRNA) from 14 high-risk HPV types (16,18,31,33,35,39,45,51,52,56,58,59,66,68). The analytical performance characteristics of this assay have been determined by [employer]. The modifications have not been cleared or approved by the FDA. This assay has been validated pursuant to the CLIA regulations and is used for clinical purposes. For additional information, please refer to http://education.[employer]/faq/PNT841v3 (This link if provided for information/ educational purposes only.) Interpretation/Re sult: Negative for intraepithelial lesion or malignancy. [facility] LMP: 56 [facility] Prev. BX: NONE GIVEN [facility] Prev. PAP: NONE GIVEN [facility] SOURCE: None given [facility] Statement Of Adequacy: SEE COMMENT [facility] Comment: Satisfactory for evaluation. Endocervical/transformation zone component present. 10/11/2021 10:5 0 AM EST Li Fan CNM LAB PATHOLOGY ORDERABLES Final Result [facility] [address] * Pap Smear (10/11/2021 12:00 AM EST) Swab us Li Fan CN LAB CYTOLOGY ORDERABLES F inal Result [facility] [address], [place] [phone] from Last 3 Months or Most Recently Relevant to Health Maintenance Additional Health Concerns Active Problems Noted Date [...] task 07/27/2025 Weekly blood pressure task 07/27/2025 Insurance [facility] AD[facility] Care Teams Door Maker Relationship Specialty Start Date End Date Nuzhat Chamberlain MD [address] [place] [phone] PCP - General Family Medicine 10/31/20
--- OUTSIDE RECORDS SUMMARY | 2025-07-27 11:49 | XMS_ITS | Encounter Summary ---
Author Organization [employer] Address [address] [place] [address] Care Team Providers Care Autism Teacher Name Role Phone Nuzhat Chamberlain MD Primary Care Provide r Encounter Details Date Type Department Care Team ([facility] st Contact Info) Description 06/11/2024 Orders Only [facility] MEDICINE [address] [place] [address] Nuzhat Chamberlain MD [address] [place] [address] Social History Tobacco Use Types Packs/Day Years [...] Office Visit [facility] ADULT DENTAL [address] [place] [address] Shyam, Lily [address] [place] [address] documented as of this encounter Visit Diagnoses Not on filedocumented in this encounter Additional Health Concerns Assessment Noted Time PHQ-9 Depression Total Score: 0 04/27/20 24 9:14 AM EDT documented as of this encounter Care Teams Autism Teacher Relationship Specialty Start Date End Date Nuzhat Chamberlain MD [address] [place] [address] PCP - General Family Medicine 10/31/20 documented as of this encounter
[2025-07-27 13:02] LABS: Alanine Aminotransferase 54 U/L (0-31); Albumin Level 4.5 g/dL (3.5-5.0); Alkaline Phosphatase 61 U/L (39-117); Anion Gap 11 (12-20); Aspartate Amino Transferase 45 U/L (5-31); Blood Urea Nitrogen 16 mg/dL (9-16); Calcium 9.8 mg/dL (8.4-10.2); Carbon Dioxide 32 mmol/L (22-29); Chloride 100 mmol/L (96-108); Cholesterol 297 mg/dL (<200); Estimated Glomerular Filt Rate > 60; HDL Cholesterol 52 mg/dL (>40); Potassium 3.8 mmol/L (3.3-5.1); Sodium 139 mmol/L (135-145); Total Protein 7.5 g/dL (6.5-8.0); Triglycerides 269 mg/dL (<150)
== END 2025-07-27 10:08 | disposition home or self-care (01) ==
LOC: HO.HHCL 10:07
PROVIDERS: PCP Internal Medicine; Visit Provider Internal Medicine
DX: E11.65 Type 2 diabetes mellitus with hyperglycemia (principal); E03.9 Hypothyroidism, unspecified
CPT/HCPCS: 36415; 80053; 80061; 84443

== ENCOUNTER 2025-07-28 09:29 | Outpatient (REF) | payer MEDICAID, SELFPAY ==
--- OUTSIDE RECORDS SUMMARY | 2025-07-27 09:15 | XMS_ITS | Encounter Summary ---
Author Organization [employer] Address [address] [place] [address] [address] [place] [address] Care Team Providers Care Pot Fisher Name Role Phone Nuzhat Chamberlain MD Primary Care Provide r Reason for Referral * Imaging (Routine) - Authorized Specialty Diagnoses / Procedures Referred By Contac aleida Referred To Contact Radiology Diagnoses Elevated LFTs Procedures US Abdomen Comp w elastography Nuzhat Chamberlain MD [address] [place] [phone] Phone: tel: fax: [address] Phone: tel: fax: Referral ID Status Reason Start Date Expiration Date V isits Requested Visits Authorized [id number] Authorized 07/27/2025 07/27/2026 1 1 Encounter Details Date Type Department Care Team (Latest Contact Info) Description 07/27/2025 9:15 AM EST Office Visit [facility] [address] [place] [address] [phone] Nuzhat Chamberlain MD [address] [place], [place] [phone] Elevated LFTs (Primary Dx); Type 2 diabetes mellitus with hyperglycemia, without long-term current use of insulin (HCC); Primary hypertension; Acquired hypothyroidism; Primary osteoarthritis of left knee Social History Tobacco Use Types Packs/Day Years [...] housing situation today? I have treasure nathan 01/24/[address] you li ve. Do you have problems with any of the following? None of the above 01/24/2025 Food Insecurity Answer Date Recorded Within the past 12 months, y ou worried that your food would run out before you got money to buy more: Never True 01/24/2025 Within the past 12 months,th e food you bought just didn't last and you didn't have enough money to get more: Never True 08/2025 Transportation Answer Date Recorded In the past 12 months, has l ack of transportation kept you from medical appts, meetings, work or from getting things needed for daily living? No 01/24/2025 Utilities Answer Date Recorded In the past 12 months, has t he electric, gas, oil or water company threatened to shut off services in your home? No 01/24/2025 Depression Answer Date Recorded Patient Health Questionnaire-2 Score 0 04/27/2024 Internet Access Answer Date Recorded Internet Access Q1 Yes 01/24/2025 Internet Access Q2 Not on file 01/24/2025 Comments Unknown Sex and Gender Information Value Date Recorded Sex Assigned at Female 07/15/2022 10:14 AM EDT Legal Sex Female 10:14 AM EDT Gender Identity Female 07/15/2022 10:14 AM EDT Sexual Orientation Straight 07/15/2022 10 :14 AM EDT documented as of this encounter Last Filed Vital Signs Vital Sign Reading Time Taken Comments Blood Pressure 130/90 07/27/2025 9:21 AM EST Pulse 82 07/27/2025 9:21 AM EST Temperature 34.9 C (94.9 F) 07/27/2025 9:21 AM EST Respiratory Rate 18 07/27/2025 9:21 AM EST Oxygen Saturation 98% 07/27/2025 9:21 AM EST Inhaled Oxygen Concentration - - Weight 63.3 kg (139 lb 9.6 oz) 07/27/2025 9:21 A M EST Height 162.6 cm (5' 4 ) 07/27/2025 9:21 AM EST Body Mass Index 23.96 07/27/2025 9:21 AM EST documented in this encounter Progress Notes * Nuzhat Rojas MD - 07/27/2025 9:15 AM EST SUBJECTIVE: Tisha Brown is a 59 y.o. year old female who presents for Chronic Disease Management . Tisha Brown, 59 years Diabetes Mellitus - Reports fluctuating blood glucose levels, with recent readings of 130 mg/dL and 184 mg/dL after breakfast - Notes hemoglobin A1c of 8.3% - Currently using Trulicity injection weekly and oral medications daily - Reports gastrointestinal discomfort and nausea attributed to multiple medications - States poor oral intake, does not eat much and rarely drinks water - Denies eating large portions Lower Extremity Pain - Reports nocturnal leg pain and knee pain, described as chilling sensation - Uses compression stockings and topical patches for relief - States pain improves with use of patches and compression stockings Social History Social History Narrative Not on file Problem List[1] Periodontal disease Localized gingival recession Gingival bleeding Primary hypercholesterolemia Acquired hypothyroidism Bilateral hearing loss Hypertensive disorder Non-alcoholic fatty liver disease Type 2 diabetes mellitus with hyperglycemia, without long-term current use of insulin (HCC) OM (onychomycosis) Vitamin D deficiency Candidiasis, intertrigo Elevated blood sugar Weight loss Polycystic ovaries Dental calculus Encounter for screening mammogram for malignant neoplasm of breast Chronic pain of left knee Preop examination Acute bacterial conjunctivitis of right eye Primary osteoarthritis of left knee Tooth sensitivity Onycholysis White coat syndrome with hypertension Hyperlipidemia Lab test positive for detection of COVID-19 virus Precordial chest pain Type 2 diabetes mellitus with unspecified complications (HCC) Family History[2] Review of Systems Constitutional: Negative. HENT: Negative. Respiratory: Negative. Cardiovascular: Negative. Musculoskeletal: Positive for arthralgias and myalgias. OBJECTIVE: Vitals: 07/27/25 0921 BP: (!) 130/90 BP Location: Left arm Patient Position: Sitting BP Cuff Size: Adult Pulse: 82 Resp: 18 Temp: 94.9 ??F (34.9 ??C) TempSrc: Temporal SpO2: 98% Weight: 139 lb 9.6 oz (63.3 kg) Height: 5' 4 (1.626 m) Physical Exam Constitutional: Appearance: Normal appearance. Cardiovascular: Rate and Rhythm: Normal rate and regular rhythm. Pulmonary: Effort: Pulmonary effort is normal. Breath sounds: Normal breath sounds. Abdominal: General: Abdomen is flat. Palpations: Abdomen is soft. Musculoskeletal: Right lower leg: No edema. Left lower leg: No edema. Neurological: Mental Status: She is alert. Follow Up: No follow-ups on file. Medications Ordered Prior to Encounter[3] Problem List Items Addressed This Visit Type 2 diabetes mellitus with hyperglycemia, without long-term current use of insulin (HCC) Relevant Medications Dulaglutide (Trulicity) 4.5 MG/0.5ML solution auto-injector Other Relevant Orders POCT Glucose (Completed) POCT Hgb A1c (Completed) Lipid Panel, Standard Albumin, Random Urine W/Creatinine Comprehensive Metabolic Panel Hypertensive disorder Acquired hypothyroidism Relevant Orders TSH W/Reflex to FT4 Primary osteoarthritis of left knee Relevant Medications acetaminophen (Tylenol Extra Strength) 500 MG tablet Type 2 diabetes mellitus with hyperglycemia, without long-term current use of insulin (HCC): - Type 2 diabetes mellitus with fluctuating hyperglycemia. Current regimen includes Trulicity injection and oral hypoglycemic agents. Patient reports gastrointestinal discomfort and nausea possibly related to medication. Weight gain noted. No change in medication at this visit; plan to increase Trulicity dose at next visit. -Trulicity increase to 4 mg. Continue oral hypoglycemic agents as prescribed. Monitor blood glucoselevels. Order laboratory tests for blood glucose, cholesterol, renal function, and hepatic function. Primary hypertension: - Primary hypertension, blood pressure not measured at this visit. No changes to antihypertensive regimen discussed. - Continue current antihypertensive medications. Bring blood pressure log to next visit for review. Acquired hypothyroidism: - Acquired hypothyroidism, status post thyroidectomy. No changes to thyroid medication discussed. - Order laboratory tests for thyroid function. Continue current thyroid medication. Primary osteoarthritis of left knee: - Primary osteoarthritis of left knee with nocturnal pain and crepitus. Symptom relief with compression stockings and topical patches. - Prescribed Tylenol for pain management. Continue use of compression stockings and topical patchesas needed. This note was drafted using Ambient (AI) technology. The patient/patient's guardian has been informed and has consented to the use of this technology: Yes [1] Patient Active Problem List Diagnosis Periodontal disease Localized gingival recession Gingival bleeding Primary hypercholesterolemia Acquired hypothyroidism Bilateral hearing loss Hypertensive disorder Non-alcoholic fatty liver disease Type 2 diabetes mellitus with hyperglycemia, without long-term current use of insulin (HCC) OM (onychomycosis) Vitamin D deficiency Candidiasis, intertrigo Elevated blood sugar Weight loss Polycystic ovaries Dental calculus Encounter for screening mammogram for malignant neoplasm of breast Chronic pain of left knee Preop examination Acute bacterial conjunctivitis of right eye Primary osteoarthritis of left knee Tooth sensitivity Onycholysis White coat syndrome with hypertension Hyperlipidemia Lab test positive for detection of COVID-19 virus Precordial chest pain Type 2 diabetes mellitus with unspecified complications (HCC) [2] No family history on file. [3] Current Outpatient Medications on File Prior to [...] kit 2 times daily. 1 kit 0 Blood Pressure kit Use to check blood pressure as directed 1 kit 0 cholecalciferol (D3 Super Strength) 50 MCG (2000 UT) capsule Take 1 capsule (50 mcg) by mouth Once per day. 90 capsule 3 cholecalciferol (Vitamin D-3) 25 MCG (1000 UT) capsule Take 1 capsule (25 mcg) by mouth in the morning. 90 capsule 0 ciclopirox (Penlac) 8 % solution Apply topically at bedtime. 6.6 mL 3 clotrimazole (Lotrimin) 1 % cream APPLY TOPICALLY TO THE AFFECTED AREA(S) AND SURROUNDING AREA(S) TWICE DAILY IN THE MORNING AND IN THE EVENING DIRECTED 30 g 2 colestipol (Colestid) 1 g tablet Take 2 tabs orally twice a day 120 tablet 11 glipiZIDE XL (Glucotrol XL) 2.5 MG 24 hr tablet TAKE 2 TABLETS BY MOUTH EVERY MORNING WITH BREAKFAST AND 1 TABLET BY MOUTH EVERY EVENING WITH DINNER. DO NOT BREAK, CRUSH, DISSOLVE OR CHEW 270 tablet 3 glucose blood (FREESTYLE LITE) test strip USE DIRECTED TO TEST BLOOD SUGAR TWICE DAILY 100 strip11 hydroCHLOROthiazide (HYDRODiuril) 25 MG tablet Take 1 tablet (25 mg) by mouth Once per day. 30 tablet 11 levothyroxine (Synthroid, Levoxyl) 50 MCG tablet Take 1 tablet (50 mcg) by mouth before breakfast. 90 tablet 3 lidocaine (Lidoderm) 5 % patch Apply 2 patches topically Once per day. Remove & discard patch within 12 hours or as directed by MD. 60 patch 1 liver oil-zinc oxide (Desitin) 40 [...] daily. 10 mL 2 TRUEplus Lancets 33G [facility] USE TO TEST BLOOD SUGAR TWICE DAILY 100 each 1 [DISCONTINUED] Dulaglutide (Trulicity) 3 MG/0.5ML solution auto-injector Inject 3 mg under the skin1 (one) time per week. 2 mL 2 No current facility-administered medications on file prior to visit. documented in this encounter Plan of Treatment Upcoming Encounters Date Type Department Care Team (Late st Contact Info) Description 12/05/2025 10:15 AM EDT Office Visit [facility] [address] [place] [address] Shyam, Lily [address] [place] [address] Scheduled Orders Name Type Priority Associated Diagnoses Orde r Schedule Albumin, Random Urine W/Creatinine Lab Routine Type 2 diabetes mellitus with hyperglycemia, without long-term current use of insulin (HCC) Expected: 07/27/2025 (Approximate), Expires: 07/27/2026 US Abdomen Comp w elastography Imaging Routine Elevated LFTs Expected: 07/27/2025, Expires: 07/27/2026 documented as of this encounter Goals Goal Patient Goal Type Associated Problems Recent Progress Patient-Stated? Author Help patients manage their type 2 diabetes Care Plan Help patients manage their type 2 diabetes No Heiss, Elizabet, [place] Weekly blood pressure task Care Plan Weekly blood pressure task No Elizabet Villalobos [place] Help patients manage their type 2 diabetes Care Plan Help patients manage their type 2 diabetes No Elizabet Villalobos [place] Patient has chronic kidney disease Care Plan Patient has chronic kidney disease No Elizabet Villalobos [place] Weekly blood pressure task Care Plan Weekly blood pressure task No Elizabet Villalobos [place] Patient has chronic kidney disease Care Plan Patient has chronic kidney disease No Elizabet Villalobos [place] Help patients manage their type 2 diabetes Care Plan Help patients manage their type 2 diabetes No Nuzhat Chamberlain MD Help patients manage their type 2 diabetes Care Plan Help patients manage their type 2 diabetes No Nuzhat Chamberlain MD Patient has chronic kidney disease Care Plan Patient has chronic kidney disease No Nuzhat Chamberlain MD Patient has chronic kidney disease Care Plan Patient has chronic kidney disease No Nuzhat Chamberlain MD Weekly blood pressure task Care Plan Weekly blood pressure task No Nuzhat Chamberlain MD Weekly blood pressure task Care Plan Weekly blood pressure task No Nuzhat Chamberlain MD Patient has chronic kidney disease Care Plan Patient has chronic kidney disease No Nuzhat Chamberlain MD Patient has chronic kidney disease Care Plan Patient has chronic kidney disease No Nuzhat Chamberlain MD Weekly blood pressure task Care Plan Weekly blood pressure task No Nuzhat Chamberlain MD Weekly blood pressure task Care Plan Weekly blood pressure task No Nuzhat Chamberlain MD documented as of this encounter Procedures Procedure Name Priority Date/Time Associated Diagnosis Comments TSH W/REFLEX TO FT4 Routine 07/27/2025 1 0:17 AM EST Acquired hypothyroidism LIPID PANEL, STANDARD Routine 07/27/2025 10:17 AM EST Type 2 diabetes mellitus with hyperglycemia, without long-term current use of insulin (HCC) COMPREHENSIVE METABOLIC PANEL Routine 07/27/2025 10:17 AM EST Type 2 diabetes mellitus with hyperglycemia, without long-term current use of insulin (HCC) POCT GLYCATED HEMOGLOBIN, TOTAL Routine 07/27/2025 9:23 AM EST Type 2 diabetes mellitus with hyperglycemia, without long-term current use of insulin (HCC) POCT GLUCOSE Routine 07/27/2025 9:23 AM EST Type 2 diabetes mellitus with hyperglycemia, without long-term current use of insulin (HCC) documented in this encounter Results * TSH W/Reflex to FT4 (07/27/2025 10:17 AM EST) TSH reflex Free T4 1.60 0.32 - 4.0 uIU/mL [facility] Blood Venous blood specimen / Unknown 07/27/2025 10:17 AM EST 07/27/2025 11:49 AM EST us Nuzhat Rojas MD LAB BLOOD ORDERABLES Final Result [facility] [address] [place] [phone] * (ABNORMAL) Comprehensive Metabolic Panel (07/27/2025 10:17 AM EST) Sodium 139 135 - 145 mmol/L [facility] Potassium 3.8 3.3 - 5.1 mmol/L [facility] Chloride 100 96 - 108 mmol/L [facility] Carbon Dioxide 32(H) 22 - 29 mmol/L [facility] Anion Gap 11(L) 12 - 20 [facility] Urea Nitrogen (BUN) 16 9 - 16 mg/dL [facility] Creatinine, Serum 0.93 0.5 - 1.4 mg/dL [facility] Estimated Glomerular Filt Rate >60 [facility] Comment:Chronic Kidney Disea se: Estimated GFR < 60 mL/min/1.05e5Ulhkwl Kidney Disease: Estimated GFR < 15 mL/min/1.73m2 Glucose 143(H) 60 - 115 mg/dL [facility] Calcium 9.8 8.4 - 10.2 mg/dL [facility] Bilirubin, Total 0.4 0.0 - 1.0 mg/dL [facility] Aspartate Amino Transferase 45(H) 5 - 31 U/L [facility] Alanine Aminotransferase 54(H) 0 - 31 U/L [facility] Total Protein 7.5 6.5 - 8.0 g/dL [facility] Albumin Level 4.5 3.5 - 5.0 g/dL [facility] Alkaline Phosphatase 61 39 - 117 U/L [facility] Blood Venous blood specimen / Unknown 07/27/2025 10:17 AM EST 07/27/2025 11:49 AM EST us Nuzhat Rojas MD LAB BLOOD ORDERABLES Final Result [facility] [address] [place] [phone] * (ABNORMAL) Lipid Panel, Standard (07/27/2025 10:17 AM EST) Triglycerides 269(H) <150 mg/dL [facility] Comment:Desirable Triglyceri de: less than 150 mg/dLBorderline High Triglyceride 150-199 mg/dLHigh Triglyceride: 200-499 mg/dLVery High Triglyceride: greater than or equal to 5OO mg/dL Cholesterol 297(H) <200 mg/dL [facility] Comment:Desirable Cholestero l: less than 200 mg/dLBorderline High Cholesterol: 200-239 mg/dLHigh Cholesterol: greater than 239 mg/dL LDL Cholesterol Calculated 192(H) <100 mg/dL [facility] Comment:Desirable LDL: less than 100 mg/dLNear Optimal/Above Optimal LDL: 110- 129 mg/dLBorderline High LDL: 130-159 mg/dLHigh LDL: 160-189 mg/dLVery High LDL: greater than or equal to 190 mg/dL HDL Cholesterol 52 >40 mg/dL [facility] Comment:Desirable HDL: great er than 40 mg/dL Note: This HDL assay may give artificially low results in patients with liver disease. Blood Venous blood specimen / Unknown 07/27/2025 10:17 AM EST 07/27/2025 11:49 AM EST us Nuzhat Rojas MD LAB BLOOD ORDERABLES Final Result [facility] [address] [place] [phone] * (ABNORMAL) POCT Hgb A1c (07/27/2025 9:23 AM EST) Hemoglobin A1C 8.3(A) 4.0 - 5.7 % QC Media Lot # [id number] Lot# Expiration Date [id number] Blood 07/27/2025 9:23 AM EST Nuzhat Rojas MD POINT OF CARE TEST EN TER/EDIT ORDERABLES Final Result * POCT Glucose (07/27/2025 9:23 AM EST) Glucose Blood, POC 184 60 - 200 mg/dL [employer] Lot # [id number] Lot# Expiration Date 7,726 Blood Capillary blood specimen / Unknown 07/27/2025 9:23 AM EST Nuzhat Rojsa MD POINT OF CARE TEST EN TER/EDIT ORDERABLES Final Result documented in this encounter Visit Diagnoses Diagnosis Elevated LFTs- Primary Other abnormal blood chemistry Type 2 diabetes mellitus with hyperglycemia, without long-term current use of insulin (HCC) Primary hypertension Unspecified essential hypertension Acquired hypothyroidism Unspecified hypothyroidism Primary osteoarthritis of left knee documented in this encounter Additional Health Concerns Active Problems Noted Date Diagnosed Date Help patients manage their type 2 diabetes 07/27 Weekly blood pressure task 07/27/2025 Help patients manage their type 2 diabetes 07/27 Patient has chronic kidney disease 07/27/2025 Weekly blood pressure task 07/27/2025 Patient has chronic kidney disease 07/27/2025 Help patients manage their type 2 diabetes 07/27 Help patients manage their type 2 diabetes 07/27 Patient has chronic kidney disease 07/27/2025 Patient has chronic kidney disease 07/27/2025 Weekly blood pressure task 07/27/2025 Weekly blood pressure task 07/27/2025 Patient has chronic kidney disease 07/27/2025 Patient has chronic kidney disease 07/27/2025 Weekly blood pressure task 07/27/2025 Weekly blood pressure task 07/27/2025 Assessment Noted Time PHQ-9 Depression Total Score: 0 04/27/20 24 9:14 AM EDT documented as of this encounter Care Teams Pot Fisher Relationship Specialty Start Date End Date Nuzhat Chamberlain MD [address] [place] [address] PCP - General Family Medicine 10/31/20 documented as of this encounter
--- OUTSIDE RECORDS SUMMARY | 2025-07-28 10:58 | XMS_ITS | Encounter Summary ---
Author Organization [employer] Address [address] 7[address] [place] [address] Care Team Providers Care Investigator Narcotics Name Role Phone Nuzhat Chamberlain MD Primary Care Provide r Reason for Visit * Reason Comments Med Refill Encounter Details Date Type Department Care Team ([facility] st Contact Info) Description 02/04/2025 Refill [facility] MED[facility]INE [address] [place], [place] [phone] Tahmina Coleman MD [address] [place], [place] [phone] Candidiasis, intertrigo Social History Tobacco Use Types [...] 12/05/2025 10:15 AM EDT Office Visit [facility] ADULT DENTAL [address] [place] [address] Shyam, Lily [address] [place] [address] documented as of this encounter Visit Diagnoses Diagnosis Candidiasis, intertrigo Candidiasis of skin and nails documented in this encounter Additional Health Concerns Assessment Noted Time PHQ-9 Depression Total Score: 0 04/27/20 24 9:14 AM EDT documented as of this encounter Care Teams Investigator Narcotics Relationship Specialty Start Date End Date Nuzhat Chamberlain MD [address] [place] [address] PCP - General Family Medicine 10/31/20 documented as of this encounter
--- OUTSIDE RECORDS SUMMARY | 2025-07-28 10:58 | XMS_ITS | Encounter Summary ---
Author Organization [employer] Address [address] 7[address] [place] [address] Care Team Providers Care Registered Nurse Behavioral Health Name Role Phone Nuzhat Chamberlain MD Primary Care Provide r Reason for Visit * Reason Comments Med Refill Encounter Details Date Type Department Care Team ([facility] st Contact Info) Description 01/04/2025 Refill [facility] MEDICINE [address] [place], [place] [phone] Nuzhat Chamberlain MD [address] [place] [address] Social History Tobacco Use Types Packs/Day Years [...] Description 12/05/2025 10:15 AM EDT Office Visit [facility] ADULT DENTAL [address] [place] [address] Shyam, Lily [address] [place] [address] documented as of this encounter Visit Diagnoses Not on filedocumented in this encounter Additional Health Concerns Assessment Noted Time PHQ-9 Depression Total Score: 0 04/27/20 24 9:14 AM EDT documented as of this encounter Care Teams Registered Nurse Behavioral Health Relationship Specialty Start Date End Date Nuzhat Chamberlain MD [address] [place] [address] PCP - General Family Medicine 10/31/20 documented as of this encounter
--- OUTSIDE RECORDS SUMMARY | 2025-07-28 10:58 | XMS_ITS | Encounter Summary ---
Author Organization [employer] Address [address] 7[address] [place] [address] Care Team Providers Care Manager Of Human Resources Name Role Phone Nuzhat Chamberlain MD Primary Care Provide r Encounter Details Date Type Department Care Team ([facility] st Contact Info) Description 07/27/2025 Results Follow-Up [facility] 230 [place] [address] Nuzhat Chamberlain MD 230 [place] [address] POCT Glucose, POCT Hgb A1c, Lipid Panel, Standard, Additional followed-up results: 2 Social History Tobacco Use Types Packs/Day Years [...] 10:15 AM EDT Office Visit [facility] ADULT DENTAL [address] [place] [address] Shyam, Lily [address] [place] [address] documented as of this encounter Goals Goal [...] Chamberlain MD documented as of this encounter Visit [...] documented as of this encounter Care Teams Manager Of Human Resources Relationship Specialty Start Date End Date Nuzhat Chamberlain MD [address] [place] [phone] PCP - General Family Medicine 10/31/20 documented as of this encounter
--- OUTSIDE RECORDS SUMMARY | 2025-07-28 10:58 | XMS_ITS | Encounter Summary ---
Author Organization [employer] Address [address] [place] [address] Care Team Providers Care Administrator Of Home Health Name Role Phone Nuzhat Chamberlain MD Primary Care Provide r Encounter Details Date Type Department Care Team ([facility] st Contact Info) Description 06/11/2024 Orders Only [facility] MEDICINE [address] [place] [address] Nuzhat Chamberlain MD [address] [place] [address] Social History Tobacco Use Types Packs/Day Years [...] Office Visit [facility] ADULT DENTAL [address] [place] [address] Shyam, Lily [address] [place] [address] documented as of this encounter Visit Diagnoses Not on filedocumented in this encounter Additional Health Concerns Assessment Noted Time PHQ-9 Depression Total Score: 0 04/27/20 24 9:14 AM EDT documented as of this encounter Care Teams Administrator Of Home Health Relationship Specialty Start Date End Date Nuzhat Chamberlain MD 230 [place] [address] PCP - General Family Medicine 10/31/20 documented as of this encounter
--- OUTSIDE RECORDS SUMMARY | 2025-07-28 10:58 | XMS_ITS | Encounter Summary ---
Author Organization [employer] Address [address] [place] [address] Care Team Providers Care Thermostatic Controls Supervisor Name Role Phone Nuzhat Chamberlain MD Primary Care Provide r Encounter Details Date Type Department Care Team (Late st Contact Info) Description 10/08/2022 Orders Only [facility] [address] [place], [place] [phone] Fay Jean RN Social History Tobacco Use [...] Description 12/05/2025 10:15 AM EDT Office Visit [facility] ADULT DENTAL [address] [place], [place] [phone] Luis Howearis [address] [place], [place] [phone] documented as of this encounter Procedures Procedure Name Priority Date/Time Associated Diagnosis Comments BI MAMMOGRAM SCREENING TOMOSYNTHESIS BILATERAL Routine 10/18/2022 9:10 AM EST documented in this encounter Results * BI Mammogram Screening Tomosynthesis Bilateral (10/18/2022 9:10 AM EST) Anatomical Region Laterality Modality Breast Bilateral Mammography 10/18/2022 9:10 AM EST Narrative 10/21/2022 10:08 AM EST [facility] [address] [place] [address] Mammography Report Signed Patient: Tisha Brown MR#: [id number] : 1965 Acct:[id number] Age/Sex: 57 / F ADM Date: 10/18/22 Loc: HO.MAMMO Attending Dr: Nuzhat Rojas MD Ordering Physician: Nuzhat Chamberlain MD Results: 1Negative Date of Service: 10/18/22 Follow Up: 1 Year From Orig inal Mammogram Procedure(s): MM tomosynthesis screening BI Accession Number(s): [id number] cc: Nuzhat Chamberlain MD EXAMINATION: MM SCREENING [...] in OV> 10/21/22 1005 DD/ 9 TD/TT: Glass Products Inspector: JUN Procedure Note Donotuseinterpreter, Image - 10/21/[address] [place], [place] [address] Mammography Report Signed Patient: Erickson Brown#: [id number] : 1965Acct:[id number] Age/Sex: 57 / FADM Date: 10/18/22 Loc: HO.MAMMO Attending Dr: Nuzhat Rojas MD Ordering Physician: Nuzhat Chamberlain MDResults: 1Negative Date of Service: 10/18/22Follow Up: 1 Year From Orig inal Mammogram Procedure(s): MM tomosynthesis screening BI Accession Number(s): [id number] cc: Nuzhat Chamberlain MD EXAMINATION: MM SCREENING [...] in OV> 10/21/22 1005 DD/ 9 TD/TT: Glass Products Inspector: JUN [facility] External Provider IMG BI PROCEDURES Edited Result - Final documented in this encounter Visit Diagnoses Not on filedocumented in this encounter Care Teams Thermostatic Controls Supervisor Relationship Specialty Start Date End Date Nuzhat Chamberlain MD 230 [place] [address] PCP - General Family Medicine 10/31/20 documented as of this encounter
--- OUTSIDE RECORDS SUMMARY | 2025-07-28 10:58 | XMS_ITS | Clinical Summary ---
Author Organization [employer] Address [address] [facility] 7t [place] [address] Care Team Providers Care Cad Draftsman Name Role Phone Nuzhat Chamberlain MD Primary [...] long-term current use of insulin ([facility]) Take 1 capsule (25 mcg) by mouth in the morning. 90 capsule 2022 Active Blood Glucose Monitoring Suppl (FreeStyle Lite) w/Device kitIndications:Type 2 diabetes mellitus with hyperglycemia, without long-term current use of insulin ([facility]) 1 kit 2 times [...] long-term current use of insulin ([facility]) Take 1 tablet (81 mg) by mouth in the morning. 90 tablet 1 2024 Active metFORMIN (Glucophage) 1000 MG tabletIndications:Type 2 diabetes mellitus with hyperglycemia, without long-term current use of insulin ([facility]) TAKE 1 TABLET BY MOUTH TWICE [...] long-term current use of insulin ([facility]) TAKE 1 TABLET BY MOUTH DAILY IN THE MORNING 90 tablet 3 2024 Active glipiZIDE XL (Glucotrol XL) 2.5 MG 24 hr tabletIndications:Type 2 diabetes mellitus with hyperglycemia, without long-term current use of insulin ([facility]) TAKE 2 TABLETS BY MOUTH EVERY [...] 2 diabetes mellitus with hyperglycemia ([facility]) USE DIRECTED TO TEST BLOOD SUGAR TWICE DAILY 100 strip 11 2024 Active TRUEplus Lancets 33G miscIndications:Type 2 diabetes mellitus with hyperglycemia, without long-term current use of insulin ([facility]) USE TO TEST BLOOD SUGAR TWICE [...] long-term current use of insulin (HCC) Inject 4.5 mg under the skin 1 [...] 07/27/20 25 11:00 AM EST 2024 Active ciclopirox (Penlac) 8 % solutionIndications:On ychomycosis [...] as directed by MD. 60 patch 1 07/27 Discontinued( Reorder (will [...] negative that I will switch her to Joseunpalro - Diabetic eye exam: She has an [...] Description 07/27/2025 9:15 AM EST Office Visit [address] [address] Nuzhat Chamberlain MD Elevated LFTs (Primary Dx); Type 2 diabetes mellitus with hyperglycemia, without long-term current use of insulin (HCC); Primary hypertension; Acquired hypothyroidism; Primary osteoarthritis of left knee 07/27/2025 Results Follow-Up [address] [address] Nuzhat Chamberlain MD POCT Glucose, POCT Hgb A1c, Lipid Panel, Standard, Additional followed-up results: 2 07/27/2025 Travel 07/26/[address] [address] Nuzhat Chamberlain MD Chart Prep 07/20/2025 Patient Outreach [address] [address] Nuzhat Chamberlain MD Pre-visit Planning (Pre visit planning unable to LVM ) 07/04/[address] [facility] [address] [place] [address] Jeffery Brown Recovery Supports 06/30/[address] [facility] [address] [place] [address] Nuzhat Chamberlain MD Onychomycosis; Candidiasis, intertrigo 06/28/[address] [facility] [address] [place] [address] Jeffery Brown Recovery Supports 06/28/[address] [facility] [address] [place] [address] Nuzhat Chamberlain MD Primary osteoarthritis of left knee; Type 2 diabetes mellitus with hyperglycemia, without long-term current use of insulin ([facility]); Primary hypertension 06/28/[address] [facility] [address] [place] [phone] Nuzhat Chamberlain MD Primary osteoarthritis of left knee 06/06/2025 2:00 PM EDT Office Visit [facility] [address] [place] [address] Lily Howe Localized gingival recession (Primary Dx); Gingival bleeding; Dental calculus 05/23/[address] [facility] [address] [place] [address] Nuzhat Chamberlain MD Type 2 diabetes mellitus with hyperglycemia ([facility]/HCC) 05/17/[address] [facility] [address] [place] [address] Nuzhat Chamberlain MD Type 2 diabetes mellitus with hyperglycemia, without long-term current use of insulin ([facility]) 05/16/[address] [facility] [address] [place] [address] Nuzhat Chamberlain MD Type 2 diabetes mellitus with hyperglycemia, without long-term current use of insulin ([facility]) from Last 3 Months Immunizations Immunization Administration [...] 12/05/2025 10:15 AM EDT Office Visit [facility] [address] [place] [address] Shyam, Lily [address] [place] [address] Health Maintenance Due Date Last Done Comments CT Colonography 1965 FIT DNA/Cologuard 1965 FIT 1965 FOBT 1965 HIV Screening 1965 Sigmoidoscopy 1965 Eye Exam 1973 Hepatitis C Screening 1981 Pneumococcal Vaccine: 50+ Years (2 of 2 - PCV) 01/01/2007 01/01/2006 RSV Patients and Patients Aged 60 years or older (1 - Risk 50-74 years 1-dose series) 2013 Zoster Vaccines (1 of 2) 2013 Colonoscopy 07/25/2024 Colorectal Cancer Screening 07/25/2024 Depression Screening 04/27/2025 04/27/2024, 04/27/20 24 COVID-19 Vaccine ( season) 2025 Influenza Vaccine (#1) 2025 , 07/12/2019, 07/28/2018, Additional history exists Dental X-Ray: Bitewings 05/26/2025 05/25/2024, 03/31 Diabetes: Hemoglobin A1C 10/27/2025 025, 04/25/2025, 01/24/2025, [...] 04/25/2026 04/25/2025 Diabetes: Foot Exam 05/03/2026 05/03/2025 Lipid Panel 07/27/2026 07/27/2025, 07/16, 12/18/2023, Additional history exists Tobacco Screening 07/27/2026 07/27/2025 Cervical Cancer Screening [...] patients manage their type 2 diabetes No Nzuhat Chamberlain MD Patient has chronic kidney disease [...] 07/27/2025 1 0:17 AM EST Acquired hypothyroidism COMPREHENSIVE METABOLIC PANEL Routine 07/27/2025 10:17 AM EST Type 2 diabetes mellitus with hyperglycemia, without long-term current use of insulin ([facility]) LIPID PANEL, STANDARD Routine 07/27/2025 10:17 AM EST Type 2 diabetes mellitus with hyperglycemia, without long-term current use of insulin ([facility]) POCT GLYCATED HEMOGLOBIN, TOTAL Routine 07/27/2025 9:23 AM EST Type 2 diabetes mellitus with hyperglycemia, without long-term current use of insulin ([facility]) POCT GLUCOSE Routine 07/27/2025 9:23 AM EST Type 2 diabetes mellitus with hyperglycemia, without long-term current use of insulin ([facility]) PERIODIC ORAL EVALUATION - ESTABLISHED PATIENT Routine [...] hyperglycemia, without long-term current use of insulin ([facility]/HCC) Onycholysis ALBUMIN, RANDOM URINE W/CREATININE Routine 11/02/2024 1:30 PM EST Type 2 diabetes mellitus with hyperglycemia, without long-term current use of insulin (CMS/HCC) BI MAMMOGRAM SCREENING TOMOSYNTHESIS BILATERAL Routine 10/29/2024 8:15 AM EST BITEWINGS - 4 RADIOGRAPHIC IMAGES Routine 05/25/2024 8:00 AM EDT Encounter for dental examination THINPREP IMAGING PAP AND HPV MRNA E6/E7 WITH REFLEX TO HPV 16,18/45 Routine 10/11/2021 10:50 AM EST PAP SMEAR Routine 10/11/2021 12:00 AM EST from Last 3 Months or Most Recently Relevant to Health Maintenance Results * TSH W/Reflex to FT4 (07/27/2025 10:17 AM EST) TSH reflex Free T4 1.60 0.32 - 4.0 uIU/mL [facility] Blood Venous blood specimen / Unknown 07/27/2025 10:17 AM EST 07/27/2025 11:49 AM EST us Nzuhat Rojas MD LAB BLOOD ORDERABLES Final Result [facility] [address] [place] [phone] * (ABNORMAL) Lipid Panel, Standard (07/27/2025 10:17 AM EST) Triglycerides 269(H) <150 mg/dL [facility] Comment:Desirable Triglyceri de: less than 150 mg/dLBorderline High Triglyceride 150-199 mg/dLHigh Triglyceride: 200-499 mg/dLVery High Triglyceride: greater than or equal to 5OO mg/dL Cholesterol 297(H) <200 mg/dL [facility] Comment:Desirable Cholestero l: less than 200 mg/dLBorderline High Cholesterol: 200-239 mg/dLHigh Cholesterol: greater than 239 mg/dL LDL Cholesterol Calculated 192(H) <100 mg/dL [facility] Comment:Desirable LDL: less than 100 mg/dLNear Optimal/Above Optimal LDL: 110- 129 mg/dLBorderline High LDL: 130-159 mg/dLHigh LDL: 160-189 mg/dLVery High LDL: greater than or equal to 190 mg/dL HDL Cholesterol 52 >40 mg/dL [facility] Comment:Desirable HDL: great er than 40 mg/dL Note: This HDL assay may give artificially low results in patients with liver disease. Blood Venous blood specimen / Unknown 07/27/2025 10:17 AM EST 07/27/2025 11:49 AM EST Nuzhat Rojas MD LAB BLOOD ORDERABLES Final Result [facility] [address] [place] [address] [phone] * (ABNORMAL) Comprehensive Metabolic Panel (07/27/2025 10:17 AM EST) Sodium 139 135 - 145 mmol/L [facility] Potassium 3.8 3.3 - 5.1 mmol/L [facility] Chloride 100 96 - 108 mmol/L [facility] Carbon Dioxide 32(H) 22 - 29 mmol/L [facility] Anion Gap 11(L) 12 - 20 [facility] Urea Nitrogen (BUN) 16 9 - 16 mg/dL [facility] Creatinine, Serum 0.93 0.5 - 1.4 mg/dL [facility] Estimated Glomerular Filt Rate >60 [facility] Comment:Chronic Kidney Disea se: Estimated GFR < 60 mL/min/1.28a4Vdmrbd Kidney Disease: Estimated GFR < 15 mL/min/1.73m2 Glucose 143(H) 60 - 115 mg/dL [facility] Calcium 9.8 8.4 - 10.2 mg/dL [facility] Bilirubin, Total 0.4 0.0 - 1.0 mg/dL [facility] Aspartate Amino Transferase 45(H) 5 - 31 U/L [facility] Alanine Aminotransferase 54(H) 0 - 31 U/L [facility] Total Protein 7.5 6.5 - 8.0 g/dL [facility] Albumin Level 4.5 3.5 - 5.0 g/dL [facility] Alkaline Phosphatase 61 39 - 117 U/L [facility] Blood Venous blood specimen / Unknown 07/27/2025 10:17 AM EST 07/27/2025 11:49 AM EST Result Gisela Rojas MD LAB BLOOD ORDERABLES Final Result [facility] [address] [place] [address] [phone] * (ABNORMAL) POCT Hgb A1c (07/27/2025 [...] 1:30 PM EST) Creatinine, Urine 269.50 mg/dL [facility] Microalbumin Urine 24.0 mg/L [facility] Microalbum Creatinine Ratio Ur 8.9 <30 ug/mg cr [facility] Comment:Albumin/Creatinine R atio Reference Ranges: Normal: < 30 ug/mg creatinine Microalbuminuria: 30 - 300 ug/mg creatinineClinical Albuminuria: > 300 ug/mg creatinine Urine (Urine, Random) 11/02/2024 1:30 PM EST 11/02/2024 4:03 PM EST us Nuzhat Rojas MD LAB URINE ORDERABLES Final Result [facility] [address] [place] [address] [phone] * BI Mammogram Screening Tomosynthesis Bilateral (10/29/2024 8:15 AM EST) Anatomical Region Laterality Modality Breast Bilateral Mammography 10/29/2024 8:15 AM EST Narrative 11/06/2024 10:15 AM EST [facility] [address] [place] [address] Mammography Report Signed Patient: Tisha Brown MR#: [id number] : 1965 Acct:[id number] Age/Sex: 59 / F ADM Date: 10/29/24 Loc: HO.MAMMO Attending Dr: Nuzhat Rojas MD Ordering Physician: Nuzhat Chamberlain MD Results: 1Negative Date of Service: 10/29/24 Follow Up: 1 Year From Orig inal Mammogram Procedure(s): MM tomosynthesis screening BI Accession Number(s): [id number] cc: Nuzhat Chamberlain MD EXAMINATION: MM SCREENING [...] OV> 11/06/24 1012 DD/ 0815 TD/TT: 10/29/24 08 Car Varnisher: Procedure Note Donotuseinterpreter, Image - [facility]/06/[facility] [address] [place] [address] Mammography Report Signed Patient: Tisha BrownMR#: [id number] : 1965Acct:[id number] Age/Sex: 59 / FADM Date: 10/29/24 Loc: HOVanessaMAMMO Attending Dr: Nuzhat Rojas MD Ordering Physician: Nuzhat Chamberlain MDResults: 1Negative Date of Service: 10/29/24Follow Up: 1 Year From Orig inal Mammogram Procedure(s): MM tomosynthesis screening BI Accession Number(s): [id number] cc: Nuzhat Chamberlain MD EXAMINATION: MM SCREENING [...] Fairchild DO in OV> 11/06/24 1012 DD/ TD/TT: 10/29/24826 Car Varnisher: Nuzhat Rojas MD IMG BI PROCEDURES Nimesh justin Result - Final * THINPREP TIS PAP AND HPV mRNA E6/E7 WITH REFLEX TO HPV 16,18/45 (10/11/2021 10:50 AM EST) Clinical Information: NIL/NEG 2016 [facility] COMMENT SEE COMMENT [facility] [...] has been evaluated with computer assisted technology. [facility] Data Processing Control Clerk: SEE COMMENT [facility] Comment: CMG, CT(ASCP) CT screening location: [place] [address] HPV nRNA E6/E7 Not Detected Not Detected [employer] Comment: Methodology: Superintendent Sales-Mediated Amplification This assay detects E6/E7 viral messenger RNA (mRNA) from 14 high-risk HPV types (16,18,31,33,35,39,45,51,52,56,58,59,66,68). The analytical performance characteristics of this assay have been determined by [employer]. The modifications have not been cleared or approved by the FDA. This assay has been validated pursuant to the CLIA regulations and is used for clinical purposes. For additional information, please refer to http://education.[employer]/faq/QLO478a4 (This link if provided for information/ educational purposes only.) Interpretation/Re sult: Negative for intraepithelial lesion or malignancy. [facility] LMP: 56 [facility] Prev. BX: NONE GIVEN [facility] N [facility] Prev. PAP: NONE GIVEN [facility] ON LAB SYSTEM SOURCE: None given [facility] Statement Of Adequacy: SEE COMMENT [facility] Comment: Satisfactory for evaluation. Endocervical/transformation zone component present. 10/11/2021 10:5 0 AM EST Li Fan CNM LAB PATHOLOGY ORDERABLES Final Result [facility] [address] * Pap Smear (10/11/2021 12:00 AM EST) Swab Li [facility] LAB CYTOLOGY ORDERABLES F inal Result [address] [place] [phone] from Last 3 Months or Most Recently [...] 07/27/2025 Weekly blood pressure task 07/27/2025 Insurance [facility] [place] [address] [facility] C[place] ST[place] AD[place] Care Teams Cad Draftsman Relationship Specialty Start Date End Date Nuzhat Chamberlain MD [address] [place] [phone] PCP - General Family Medicine 10/31/20
--- OUTSIDE RECORDS SUMMARY | 2025-07-28 10:58 | XMS_ITS | Encounter Summary ---
Author Organization [employer] Address [address] [facility] 7t [place] [address] Care Team Providers Care Clinical Director Name Role Phone Nuzhat Chamberlain MD Primary Care Provide r Reason for Visit * Reason Comments Med Refill Encounter Details Date Type Department Care Team (Late st Contact Info) Description 10/06/2023 Refill [facility] ADULT DENTAL [address] [place], [place] [phone] Ashutosh Thurman DDS [address] [place], [place] [phone] Necrosis of dental pulp Social History Tobacco [...] Description 12/05/2025 10:15 AM EDT Office Visit [facility] ADULT D[facility]AL [address] [place] [address] Luis Howearis [address] [place] [address] documented as of this encounter Visit Diagnoses Diagnosis Necrosis of dental pulp documented in this encounter Care Teams Clinical Director Relationship Specialty Start Date End Date Nuzhat Chamberlain MD [address] [place] [address] PCP - General Family Medicine 10/31/20 documented as of this encounter
--- OUTSIDE RECORDS SUMMARY | 2025-07-28 10:58 | XMS_ITS | Encounter Summary ---
Author Organization [employer] Address [address] [facility] [address] 7[address] [place] [address] Care Team Providers Care Skate Maker Name Role Phone Nuzhat Chamberlain MD [...] Description 12/05/2025 10:15 AM EDT Office Visit [facility] ADULT DENTAL [address] [place], [place] [phone] Shyam, Lily [address] [place] [address] documented as of this encounter Goals Goal [...] documented as of this encounter Care Teams Skate Maker Relationship Specialty Start Date End Date Nuzhat Chamberlain MD [address] [place] [id number] PCP - General Family Medicine 10/31/20 documented as of this encounter
--- OUTSIDE RECORDS SUMMARY | 2025-07-28 10:58 | XMS_ITS | Encounter Summary ---
Author Organization [employer] Address 75 [facility] 7t [place] [address] Care Team Providers Care Woodwinds Teacher Name Role Phone Nuzhat Chamberlain MD Primary Care Provide r Encounter Details Date Type Department Care Team (Late st Contact Info) Description 02/26/2023 Orders Only [facility] MEDICINE [address] [place], [place] [phone] Tanna Jean LPN Social History Tobacco Use [...] [facility] [address] [place], [place] [phone] Shyam Lily [address] [place] [address] documented as of this encounter Visit Diagnoses Not on filedocumented in this encounter Care Teams Woodwinds Teacher Relationship Specialty Start Date End Date Nuzhat Chamberlain MD 230 [place] [address] PCP - General Family Medicine 10/31/20 documented as of this encounter
--- OUTSIDE RECORDS SUMMARY | 2025-07-28 10:58 | XMS_ITS | Encounter Summary ---
Author Organization [employer] Address [address] [facility] 7t [place] [address] Care Team Providers Care Pets Salesperson Name Role Phone Nuzhat Chamberlain MD Primary Care Provide r Reason for Visit * Reason Onset Date Comments Chart Prep 07/26/2025 Encounter Details Date Type Department Care Team ([facility] st Contact Info) Description 07/26/2025 Telephone [facility] MED[facility]INE [address] [place], [place] [phone] Nuzhat Chamberlain MD 230 [place] [address] Chart Prep Social History Tobacco Use Types [...] Description 12/05/2025 10:15 AM EDT Office Visit [facility] ADULT DENTAL [address] [place] [address] Shyam, Lily [address] [place] [address] documented as of this encounter Visit Diagnoses Not on filedocumented in this encounter Additional Health Concerns Assessment Noted Time PHQ-9 Depression Total Score: 0 04/27/20 24 9:14 AM EDT documented as of this encounter Care Teams Pets Salesperson Relationship Specialty Start Date End Date Nuzhat Chamberlain MD 230 [place] [address] PCP - General Family Medicine 10/31/20 documented as of this encounter
--- OUTSIDE RECORDS SUMMARY | 2025-07-28 10:58 | XMS_ITS | Encounter Summary ---
Author Organization [employer] Address [address] [facility] [address] 7t [place] [address] Care Team Providers Care Mr Teacher Name Role Phone Nuzhat Chamberlain MD Primary Care Provide r Reason for Visit * Reason Comments Med Refill Encounter Details Date Type Department Care Team (Late st Contact Info) Description 10/12/2024 Refill [facility] 230 [place], [place] [phone] Winnie Kaur NP 230 [place] [address] Hordeolum externum of right lower eyelid Social [...] 12/05/2025 10:15 AM EDT Office Visit [facility] ADULT DENTAL 230 [place] [address] Shyam, Lily [address] [place] [address] documented as of this encounter Visit Diagnoses Diagnosis Hordeolum externum of right lower eyelid documented in this encounter Additional Health Concerns Assessment Noted Time PHQ-9 Depression Total Score: 0 04/27/20 24 9:14 AM EDT documented as of this encounter Care Teams Mr Teacher Relationship Specialty Start Date End Date Nuzhat Chamberlain MD 230 [place] [address] PCP - General Family Medicine 10/31/20 documented as of this encounter
--- OUTSIDE RECORDS SUMMARY | 2025-07-28 10:58 | XMS_ITS | Encounter Summary ---
Author Organization [employer] Address [address] [facility] 7t [place] [address] Care Team Providers Care Director Of Clinical Applications Name Role Phone Nuzhat Chamberlain MD Primary Care Provide r Encounter Details Date Type Department Care Team (Latest Contact Info) Description 03/26/2022 Abstract [facility] CONVERSIONS Dental, Provider, DDS Social History [...] 12/05/2025 10:15 AM EDT Office Visit [facility] ADULT DENTAL [address] [place] [address] Shyam, Lily [address] [place] [address] documented as of this encounter Visit Diagnoses Not on filedocumented in this encounter Care Teams Director Of Clinical Applications Relationship Specialty Start Date End Date Nuzhat Chamberlain MD 230 [place] [address] PCP - General Family Medicine 10/31/20 documented as of this encounter
--- OUTSIDE RECORDS SUMMARY | 2025-07-28 10:58 | XMS_ITS | Encounter Summary ---
Author Organization [employer] Address [address] [facility] [address] 7[address] [place] [address] Care Team Providers Care Polymer Materials Consultant Name Role Phone Nuzhat Chamberlain MD Primary Care Provide r Reason for Visit * Reason Comments Med Refill Encounter Details Date Type Department Care Team ([facility] st Contact Info) Description 01/29/2025 Refill [facility] MEDICINE 230 [place], [place] [phone] Tahmina Coleman MD 230 [place], [place] [phone] Candidiasis, intertrigo Social History Tobacco Use Types [...] Description 12/05/2025 10:15 AM EDT Office Visit [facility] ADULT DENTAL 230 [place] [address] Shyam, Lily [address] [place] [address] documented as of this encounter Visit Diagnoses Diagnosis Candidiasis, intertrigo Candidiasis of skin and nails documented in this encounter Additional Health Concerns Assessment Noted Time PHQ-9 Depression Total Score: 0 04/27/20 24 9:14 AM EDT documented as of this encounter Care Teams Polymer Materials Consultant Relationship Specialty Start Date End Date Nuzhat Chamberlain MD 230 [place] [address] PCP - General Family Medicine 10/31/20 documented as of this encounter
--- OUTSIDE RECORDS SUMMARY | 2025-07-28 10:58 | XMS_ITS | Encounter Summary ---
Author Organization [employer] Address [address] [facility] [address] 7t [place] [address] Care Team Providers Care Scientific Recruiter Name Role Phone Nuzhat Chamberlain MD Primary Care Provide r Reason for Visit * Reason Comments Med Refill Encounter Details Date Type Department Care Team ([facility] st Contact Info) Description 03/18/2025 Refill [facility] MEDICINE [address] [place], [place] [phone] Nuzhat Chamberlain MD [address] [place], [place] [phone] Candidiasis, intertrigo Social History Tobacco Use Types [...] 12/05/2025 10:15 AM EDT Office Visit [facility] ADULT DENTAL [address] [place] [address] Shyam, Lily [address] [place] [address] documented as of this encounter Visit Diagnoses Diagnosis Candidiasis, intertrigo Candidiasis of skin and nails documented in this encounter Additional Health Concerns Assessment Noted Time PHQ-9 Depression Total Score: 0 04/27/20 24 9:14 AM EDT documented as of this encounter Care Teams Scientific Recruiter Relationship Specialty Start Date End Date Nuzhat Chamberlain MD [address] [place] [address] PCP - General Family Medicine 10/31/20 documented as of this encounter
--- OUTSIDE RECORDS SUMMARY | 2025-07-28 10:58 | XMS_ITS | Encounter Summary ---
Author Organization [employer] Address [address] [facility] 7t [place] [address] Care Team Providers Care Concrete Engineering Technician Name Role Phone Nuzhat Chamberlain MD Primary Care Provide r Reason for Visit * Reason Comments Med Refill Encounter Details Date Type Department Care Team ([facility] st Contact Info) Description 05/16/2025 Refill [facility] MEDICINE [address] [place], [place] [phone] Nuzhat Chamberlain MD 230 [place], [place] [phone] Type 2 diabetes mellitus with hyperglycemia, without long-term current use of insulin ([facility]) Social History Tobacco Use Types Packs/Day Years [...] 10:15 AM EDT Office Visit [facility] ADULT DENTAL [address] [place] [address] Shyam, Lily [address] [place] [address] documented as of this encounter Visit Diagnoses Diagnosis Type 2 diabetes mellitus with hyperglycemia, without long-term current use of insulin (HCC) documented in this encounter Additional Health Concerns Assessment Noted Time PHQ-9 Depression Total Score: 0 04/27/20 24 9:14 AM EDT documented as of this encounter Care Teams Concrete Engineering Technician Relationship Specialty Start Date End Date Nuzhat Chamberlain MD [address] [place] [address] PCP - General Family Medicine 10/31/20 documented as of this encounter
--- OUTSIDE RECORDS SUMMARY | 2025-07-28 10:58 | XMS_ITS | Clinical Summary ---
Author Organization [facility] Address [address] [place] [address] Phone Care Team Providers Care Technology Consultant Name Role Phone Nuzhat Chamberlain MD Primary Care Provide r Allergies No known active allergies Encounters Date Type Department Care Team Description 05/03/2025 1:30 PM EDT Office Visit [facility] [address] [phone] Graham Young DPM Tinea pedis [...] Care Team (Late st Contact Info) Description 07/28/2025 2:00 PM EST Office Visit [facility] [address] [phone] Graham Young DPM [address] [phone] Health Maintenance Due Date Last [...] topic Insurance MEDICAID - [place] Care Teams Technology Consultant Relationship Specialty Start Date End Date Nuzhat Chamberlain MD [address] [place] [phone] PCP - General Internal Medicine 01/27/25
--- OUTSIDE RECORDS SUMMARY | 2025-07-28 10:58 | XMS_ITS | Encounter Summary ---
Author Organization [employer] Address [address] [facility] 7t [place] [address] Care Team Providers Care Flag Car Driver Name Role Phone Nuzhat Chamberlain MD Primary Care Provide r Reason for Visit * Reason Comments Med Refill Encounter Details Date Type Department Care Team (Late st Contact Info) Description 10/20/2023 Refill [facility] MEDICINE [address] [place], [place] [phone] Nuzhat Chamberlain MD 230 [place], [place] [phone] Type 2 diabetes mellitus with hyperglycemia, without long-term current use of insulin ([facility]); Elevated blood sugar Social History Tobacco Use [...] Description 12/05/2025 10:15 AM EDT Office Visit [facility] ADULT DENTAL [address] [place], [place] [phone] Shyam, Lily [address] [place] [address] documented as of this encounter Visit Diagnoses Diagnosis Type 2 diabetes mellitus with hyperglycemia, without long-term current use of insulin (HCC) Elevated blood sugar Other abnormal glucose documented in this encounter Care Teams Flag Car Driver Relationship Specialty Start Date End Date Nuzhat Chamberlain MD 230 [place], [place] [phone] PCP - General Family Medicine 10/31/20 documented as of this encounter
--- OUTSIDE RECORDS SUMMARY | 2025-07-28 10:58 | XMS_ITS | Encounter Summary ---
Author Organization [employer] Address [address] [facility] [address] 7[address] [place] [address] Care Team Providers Care Manager Paid Name Role Phone Nuzhat Chamberlain MD Primary Care Provide r Reason for Visit * Reason Comments Med Refill Encounter Details Date Type Department Care Team ([facility] st Contact Info) Description 10/20/2024 Refill [facility] MEDICINE [address] [place], [place] [phone] Nuzhat Chamberlain MD [address] [place], [place] [phone] Candidiasis, intertrigo Social History Tobacco Use Types [...] 10:15 AM EDT Office Visit [facility] ADULT DENTAL [address] [place] [address] Shyam, Lily [address] [place] [address] documented as of this encounter Visit Diagnoses Diagnosis Candidiasis, intertrigo Candidiasis of skin and nails documented in this encounter Additional Health Concerns Assessment Noted Time PHQ-9 Depression Total Score: 0 04/27/20 24 9:14 AM EDT documented as of this encounter Care Teams Manager Paid Relationship Specialty Start Date End Date Nuzhat Chamberlain MD [address] [place] [address] PCP - General Family Medicine 10/31/20 documented as of this encounter
--- OUTSIDE RECORDS SUMMARY | 2025-07-28 10:58 | XMS_ITS | Encounter Summary ---
Author Organization [employer] Address [address] [facility] [address] 7[address] [place] [address] Care Team Providers Care Obstetrics Technician Name Role Phone Nuzhat Chamberlain MD Primary Care Provide r Reason for Visit * Reason Comments Med Refill Encounter Details Date Type Department Care Team (Late st Contact Info) Description 06/28/2025 Refill [facility] MEDICINE [address] [place], [place] [phone] Nuzhat Chamberlain MD [address] [place], [place] [phone] Primary osteoarthritis of left knee Social History [...] Description 12/05/2025 10:15 AM EDT Office Visit [facility] ADULT DENTAL [address] [place] [address] Shyam, Lily [address] [place] [address] documented as of this encounter Visit Diagnoses Diagnosis Primary osteoarthritis of left knee documented in this encounter Additional Health Concerns Assessment Noted Time PHQ-9 Depression Total Score: 0 04/27/20 24 9:14 AM EDT documented as of this encounter Care Teams Obstetrics Technician Relationship Specialty Start Date End Date Nuzhat Chamberlain MD [address] [place] [address] PCP - General Family Medicine 10/31/20 documented as of this encounter
--- OUTSIDE RECORDS SUMMARY | 2025-07-28 10:58 | XMS_ITS | Encounter Summary ---
Author Organization [employer] Address [address] [facility] 7t [place] [address] Care Team Providers Care Cabinet Assembler Name Role Phone Nuzhat Chamberlain MD Primary Care Provide r Encounter Details Date Type Department Care Team (Latest Contact Info) Description 12/23/2018 Abstract [facility] CONVERSIONS Dental, Provider, DDS Social History [...] Description 12/05/2025 10:15 AM EDT Office Visit [facility] ADULT DENTAL [address] [place] [address] Shaym, Lily [address] [place] [address] documented as of this encounter Visit Diagnoses Not on filedocumented in this encounter Care Teams Cabinet Assembler Relationship Specialty Start Date End Date Nuzhat Chamberlain MD [address] [place] [address] PCP - General Family Medicine 10/31/20 documented as of this encounter
--- OUTSIDE RECORDS SUMMARY | 2025-07-28 10:58 | XMS_ITS | Encounter Summary ---
Author Organization [employer] Address [address] [facility] 7t [place] [address] Care Team Providers Care Supervisor Coating Name Role Phone Nuzhat Chamberlain MD Primary Care Provide r Encounter Details Date Type Department Care Team (Latest Contact Info) Description 06/30/2020 Abstract [facility] CONVERSIONS Dental, Provider, DDS Social History [...] Description 12/05/2025 10:15 AM EDT Office Visit [facility] ADULT DENTAL [address] [place] [address] Shyam, Lily [address] [place] [address] documented as of this encounter Visit Diagnoses Not on filedocumented in this encounter Care Teams Supervisor Coating Relationship Specialty Start Date End Date Nuzhat Chamberlain MD 230 [place] [address] PCP - General Family Medicine 10/31/20 documented as of this encounter
== END 2025-07-28 09:30 | disposition home or self-care (01) ==
LOC: HO.HHCL 09:29
PROVIDERS: PCP Internal Medicine; Visit Provider Internal Medicine
DX: E11.65 Type 2 diabetes mellitus with hyperglycemia (principal)
CPT/HCPCS: 82043; 82570